=== PATIENT | male | born 1975 | race Caucasian/White ===

== ENCOUNTER 2018-12-26 14:31 | Inpatient (IN) ==
[2018-12-26] MEDS ORDERED: ACETAMINOPHEN 325 MG TABLET PO ONE (14:56)
[2018-12-26] MEDS ORDERED: PIPERACILLIN SODIUM/TAZOBACTAM 3.375 GM in DEXTROSE 5% IN WATER 50 ML IV SCH (15:00)
--- NOTE | 2018-12-26 15:12 | Emergency Department Note ---
Fever HPI <Dheeraj Sanders - Last Filed: 12/26/18 17:06> - General Source: patient Mode of arrival: ambulatory Limitations: no limitations - History of Present Illness MD complaint: fever, malaise, weakness Associated symptoms: Reports: chills, rhinorrhea, cough, diarrhea. Denies: sore throat, stiff neck, chest pain, shortness of breath, abdominal pain, nausea, vomiting, dysuria, rash Treatments prior to arrival fever: acetaminophen <Kendall Villarreal - Last Filed: 12/26/18 19:10> - General Chief Complaint: Fever Stated Complaint: Fever, positive blood cultures Time Seen by Provider: 12/26/18 14:55 - History of Present Illness HPI Narrative: 43-year-old male who comes to the ER today for ongoing fever and worsening condition after being seen in the ER last night for fever and chills after having hemodialysis yesterday afternoon. Patient followed up with his primary care today who referred him back to the emergency room today. During his ER visit yesterday he was found have positive blood cultures 2 with Staph and was started on clindamycin last night. He continues to deteriorate with fever, chills, minor nasal drainage and has now developed a cough that is nonproductive. Denies any recent illness exposures. Denies any chest pain, shortness of breath, vomiting or issues with bowels or bladder. Did have some nausea earlier in the day that was successfully treated with Zofran that allowed him to eat lunch. He also reports poor sleep last night due to condition. Patient also reports a new onset right back shoulder ache that he is never experienced before. Patient is a 7 year hemodialysis patient with a recent procedure of a hemodialysis shunt revision in October 2018. Patient has re ceived flu shot this season and pneumonia shot in the past. He also took 1000 mg of Tylenol at approximately 10 AM this morning for fever. Forgot to take his 1400 dose of APAP. Urine and flu testing yesterday were negative as were chest x-ray. (Kendall Villarreal) - Related Data Home Medications Medication Instructions Recorded Confirmed Folic Acid/Vit Bcomp,C [Renal 0.8 mg PO DAILY 11/26/17 12/26/18 Vitamin Tablet] aspirin 81 mg tablet,delayed 81 mg PO QDAY 08/02/18 12/26/18 release Calcium Acetate [Phoslo] 1,334 mg PO TIDCC 12/26/18 12/26/18 Calcium Acetate [Phoslo] 667 mg PO TIDP PRN 12/26/18 12/26/18 Clopidogrel [Plavix] 75 mg PO DAILY 12/26/18 12/26/18 hydrOXYzine [Atarax] 25 mg PO HS 12/26/18 12/26/18 Previous Rx's Medication Instructions Recorded gemfibrozil 600 mg tablet 600 mg PO QAMAC #30 tab 07/04/18 sucroferric oxyhydroxide 500 mg 1,000 mg PO .six times daily #360 09/30/18 chewable tablet tab Clindamycin HCl [Cleocin] 300 mg PO TID #30 cap 12/25/18 Ondansetron [Zofran ODT] 4 mg SL Q4-6HP PRN #10 tab 12/25/18 sevelamer carbonate 800 mg tablet 1,600 mg PO TID #180 tab 12/25/18 Allergies Allergy/AdvReac Type Severity Reaction Status Date / Time kiwi Allergy Severe Swelling Verified 12/26/18 14:32 of Lip/Tongue/Throat venom-honey bee Allergy Severe Swelling Verified 12/26/18 14:32 [bee venom (honey bee)] of Lip/Tongue/Throat peas Allergy Unknown Swelling Uncoded 12/26/18 13:46 of Lip/Tongue/Throat some tape & bandaids Allergy Unknown Redness of Uncoded 12/26/18 13:46 Skin Review of Systems All systems ED: reviewed and negative except as stated. <Kendall Villarreal - Last Filed: 12/26/18 19:10> Fever PMH - Past Medical History Medical history: Reports: arthritis, GERD, hyperlipidemia, osteoporosis, renal disease, thyroid disease, other (dialysis patient Paraspinal abscess. Interventricular factor positive. Morbid obesity. Gout.) Psychiatric history: Reports: anxiety - Social History smoking status: Former smoker Alcohol use: Reports: None Drug use: Reports: none <Kendall Villarreal - Last Filed: 12/26/18 19:10> - Past Medical History [facility] Narrative: Medical History (Last Reviewed 12/17/17 @ 09:20 by Jocelyn Mata CMA) Bronchitis (Acute) Hypocalcemia (Acute) Hungry bone syndrome (Acute) Abnormal liver enzymes (Chronic) Anemia (Acute) Hyperthyroidism (Acute) Clostridium difficile infection (Acute) Prolonged bleeding time (Acute) Clostridium difficile diarrhea (Chronic) Viral infection (Acute) Right sciatic notch pain (Acute) Pain management (Acute) Arthralgia of right hip (Chronic) Trochanteric bursitis of right hip (Chronic) Paraspinal abscess (Acute) Pleurodynia (Acute) Antinuclear factor positive (Resolved) Lateral epicondylitis of right elbow (Acute) Hyperlipidemia (Chronic) End stage renal failure on dialysis (Chronic) Morbid obesity (Chronic) Arthralgia of both hands (Chronic) Osteoarthritis (Chronic) Heartburn (Chronic) Gout (Chronic) Positive blood cultures (Acute) Gastroenteritis (Inactive) Past Surgical History (Last Reviewed 12/17/17 @ 09:20 by Jocelyn Mata CMA) History of cholecystectomy (Acute) History of parathyroidectomy (Acute) H/O angioplasty (Chronic 04/11/17) Hx of appendectomy (Inactive) (Kendall Villarreal) Physical Exam Limitations: no limitations, other (Sunday hemodialysis patient) General appearance: alert, in no apparent distress, obese, other (appears mildly ill.) Head: atraumatic, normocephalic Eye: Present: normal appearance, PERRL ENT: normal exam, mucous membranes moist, TM's normal bilaterally Neck: Present: full ROM, trachea midline Chest: Present: normal inspection Respiratory: Present: normal lung sounds bilaterally. Absent: rales/crackles, wheezes, stridor, accessory muscle use Cardiovascular: Present: regular rate, normal heart sounds. Absent: JVD Abdominal: Present: soft, normal bowel sounds. Absent: tenderness, guarding, rigidity Extremities: Present: other (left upper extremity examined without any obvious signs of inflammation or infection ) Neurological: Present: alert, oriented X3 Psychiatric: Present: normal affect, normal mood Skin: Present: warm, dry, normal color <Kendall Villarreal - Last Filed: 12/26/18 19:10> Vital Signs Temperature 100.1 F H 12/26/18 14:32 Pulse Rate 88 12/26/18 14:32 Respiratory Rate 17 12/26/18 14:32 Blood Pressure 141/74 12/26/18 14:32 Pulse Oximetry (%) 100 12/26/18 14:32 Temperature 102.5 F H 12/26/18 16:06 Pulse Rate 87 12/26/18 16:47 Respiratory Rate 24 H 12/26/18 16:47 Blood Pressure 99/47 12/26/18 16:46 Pulse Oximetry (%) 98 12/26/18 16:47 Fever - Lab Data Result diagrams: 12/26/18 15:11 12/26/18 15:11 <Dheeraj Sanders - Last Filed: 12/26/18 17:06> - Medical Records Medical records reviewed: Yes I reviewed the patient's medical records. - Lab Data Lab results reviewed: Yes I reviewed the patient's lab results. Result diagrams: 12/26/18 15:11 12/26/18 15:11 - Radiology Data Radiology results reviewed: Yes I reviewed the patient's radiology results. - EKG Data EKG shows normal: sinus rhythm, axis Rate: normal Rhythm: NSR [place]/QRS: normal Ectopy: PAC When compared to previous EKG there are: no significant changes Interpretation: no acute changes, unchanged when compared to prior tracing (date ) <Kendall Villarreal - Last Filed: 12/26/18 19:10> - MDM Narrative Medical decision making narrative: Patient presented with FOUO. Initiated sepsis protocol based on presentation, Initiated Zosyn 3.375 mg IV 1 and administered Tylenol 650 mg by mouth for patient's missed dose at 1400. Lactic acid returned at 2.7 up from 1.4 yesterda y. While blood pressure is stable, normal saline initiated wide open for 1 L. UA, flu and chest x-ray were all negative last evening. Also during monitoring patient's temperature was found to be increasingly elevated at 103 orally. Cooling measures initiated. Secondary antibiotic considered but elect not to as good coverage with Zosyn. Once per calcitonin was back noted be 5.09. CT of abdomen and pelvis ordered for source location. (Kendall Villarreal) - Lab Data Lab results narrative: Review of labs shows an increase of lactic acid from 1.4 yesterday to 2.7 today. Sodium, potassium was normal. Chloride, anion gap, sodium, potassium, creatinine, calcium are within normal for the patient. AST and LT are elevated at 48/47 respectively which is an increase from normal the patient was started on antibiotics yesterday. CBC shows relatively normal for the patient and WBCs are still within normal range at 6.2. (Kendall Villarreal) Lab Results 12/26/18 12/26/18 12/26/18 Range/Units 15:11 15:11 15:11 WBC 6.2 (4.5-11.0) K/mcL RBC 3.71 L (4.50-5.90) M/mcL Hgb 11.9 L (13.5-16.5) g/dL Hct 34.7 L (41.0-55.0) % MCV 93.4 (80.0-100.0) fL MCH 32.0 (26.0-34.0) pg MCHC 34.3 (31.0-36.0) g/dL RDW 13.7 (11.5-14.5) % Plt Count 210 (140-440) K/mcL MPV 7.9 (7.4-10.4) fL Gran % 87.3 H (38.0-78.0) % Lymph % (Auto) 7.8 L (15.5-49.0) % [place] % (Auto) 4.8 (1.0-12.0) % Eos % (Auto) 0 (0.0-7.0) % Baso % (Auto) 0.1 (0.0-2.0) % Gran # 5.4 (1.8-8.0) K/mcL Lymph # (Auto) 0.5 L (1.5-4.8) K/mcL [place] # (Auto) 0.3 (0.1-0.9) K/mcL Eos # (Auto) 0 (0.0-0.7) K/mcL Baso # (Auto) 0 (0.0-0.3) K/mcL VBG Lactic Acid (0.5-2.0) mmol/L Sodium 136 (133-145) mmol/L Potassium 3.6 (3.3-5.1) mmol/L Chloride 90 L (96-108) mmol/L Carbon Dioxide 25 (22-30) mmol/L Anion Gap 21.0 H (8-16) BUN 47 H (6-20) mg/dl Creatinine 7.8 H* (0.7-1.2) mg/dl GFR Calculation 8 Glucose 109 H (70-105) mg/dL Calcium 8.0 L (8.6-10.4) mg/dl Total Bilirubin 0.5 (0.0-1.0) mg/dL AST 47 H (0-37) U/l ALT 48 H (0-40) U/l Alkaline Phosphatase 110 (39-117) U/L Total Protein 8.0 (5.9-8.4) gm/dL Albumin 4.5 (3.2-5.2) gm/dL Globulin 3.5 (2.2-3.7) gm/dL Albumin/Globulin Ratio 1.3 (1.0-2.3) Procalcitonin 5.09 (<0.10) ng/mL 12/26/18 Range/Units 15:11 WBC (4.5-11.0) K/mcL RBC (4.50-5.90) M/mcL Hgb (13.5-16.5) g/dL Hct (41.0-55.0) % MCV (80.0-100.0) fL MCH (26.0-34.0) pg MCHC (31.0-36.0) g/dL RDW (11.5-14.5) % Plt Count (140-440) K/mcL MPV (7.4-10.4) fL Gran % (38.0-78.0) % Lymph % (Auto) (15.5-49.0) % [place] % (Auto) (1.0-12.0) % Eos % (Auto) (0.0-7.0) % Baso % (Auto) (0.0-2.0) % Gran # (1.8-8.0) K/mcL Lymph # (Auto) (1.5-4.8) K/mcL [place] # (Auto) (0.1-0.9) K/mcL Eos # (Auto) (0.0-0.7) K/mcL Baso # (Auto) (0.0-0.3) K/mcL VBG Lactic Acid 2.7 H (0.5-2.0) mmol/L Sodium (133-145) mmol/L Potassium (3.3-5.1) mmol/L Chloride (96-108) mmol/L Carbon Dioxide (22-30) mmol/L Anion Gap (8-16) BUN (6-20) mg/dl Creatinine (0.7-1.2) mg/dl GFR Calculation Glucose (70-105) mg/dL Calcium (8.6-10.4) mg/dl Total Bilirubin (0.0-1.0) mg/dL AST (0-37) U/l ALT (0-40) U/l Alkaline Phosphatase (39-117) U/L Total Protein (5.9-8.4) gm/dL Albumin (3.2-5.2) gm/dL Globulin (2.2-3.7) gm/dL Albumin/Globulin Ratio (1.0-2.3) Procalcitonin (<0.10) ng/mL - Radiology Data Chest x-ray dated 12/25/[address] ABD/Pelvis w/o contrast 12/26/2018: IMPRESSION: Mild hepatosplenomegaly. The spleen has enlarged since 2016. Severe atrophy of both kidneys. There is lobulation of the parenchyma in the midportion of the right kidney and exophytic nodule is developing posteriorly the left kidney. Follow-up renal ultrasound is recommended for further evaluation. (Kendall Villarreal) Disposition <Dheeraj Sanders - Last Filed: 12/26/18 17:06> Pt seen by HOME LENDING OFFICER/PA only: No (Tommy) Time of Disposition: 19:10 <Kendall Villarreal - Last Filed: 12/26/18 19:10> Clinical Impression: Septicemia Disposition: Xfer As Inpt ([facility]) Condition: Fair Referrals: Nelson Castelan MD [Primary Care Provider] -
[2018-12-26] MEDS ORDERED: ONDANSETRON 4 MG/2 ML VIAL IV ONE (15:35)
[2018-12-26 15:55] LABS: Basophils # (Auto) 0 K/mcL (0.0-0.3); Basophils % (Auto) 0.1 % (0.0-2.0); Eosinophils # (Auto) 0 K/mcL (0.0-0.7); Eosinophils % (Auto) 0 % (0.0-7.0); Granulocytes % (Auto) 87.3 % (38.0-78.0); Lymphocytes # (Auto) 0.5 K/mcL (1.5-4.8); Lymphocytes % (Auto) 7.8 % (15.5-49.0); Mean Cell Volume 93.4 fL (80.0-100.0); Mean Corpuscular HGB Conc 34.3 g/dL (31.0-36.0); Monocytes # (Auto) 0.3 K/mcL (0.1-0.9); Monocytes % (Auto) 4.8 % (1.0-12.0); Platelet Count 210 K/mcL (140-440); RBC 3.71 M/mcL (4.50-5.90); Red Cell Distribution Width 13.7 % (11.5-14.5)
[2018-12-26 16:22] LABS: ALT/SGPT 48 U/l (0-40); Albumin 4.5 gm/dL (3.2-5.2); Albumin/Globulin Ratio 1.3 (1.0-2.3); Alkaline Phosphatase 110 U/L (39-117); Blood Urea Nitrogen 47 mg/dl (6-20)
[2018-12-26] MEDS ORDERED: 0.9 % SODIUM CHLORIDE 1,000 ML IV ONE (16:23)
--- NOTE | 2018-12-26 17:07 | Nephrology Consult Note ---
History of Present Illness - Reason for Consult Patient information: Note initiated : 12/26/18 at 5:03 pm Service Date, if different from initiated Date: [] Patient: Odilon Kruger a 43 y/o M admitted on for Fever, positive blood cultures. Chief Complaint: [] Consult date: 12/26/18 end stage renal disease Requesting physician: Dheeraj Sanders - Chief Complaint fever - History of Present Illness Patient is a 43 y/o pleasant white male with PMH of ESRD on HD and other medical issues who presented to the ER with fever Patient states he started feeling sick after dialysis yesterday, was having chills and fever. He presented to the ER and had fever of 101-102F, with negative cxr/ua, blood cultures were sent and patient was discharged on clindamycin. Patient continued to feel sick and saw his PCP this am and was advised to come back to ER. His blood cultures from yesterday are positive for gram positive cocci and his lactate is elevated. he is been treated with iv zosyn and vanc and will be hospitalised he c/o cough no SOB, CP no edema no redness/pain at AVF site no diarrhea, nausea, vomiting denies any pain at any other site no other concerns CT abdomen and pelvis is been done Review of Systems All systems PM: reviewed and no additional remarkable complaints except as stated (as in HPI) Past History Past medical history: ESRD on HD h/o tertiary hyperparathyroidism HTN obesity ALY h/o staph bacteremia x 2 dyslipidemia Past surgical history: s/p AVF x 2 h/o parathyroidectomy h/o cholecystectomy Past family history: not pertinent to this hospital stay Past social history: lives with his and daughter currently does no work has no active addictions Medications and Allergies Home Medications Medication Instructions Recorded Confirmed Type Folic Acid/Vit Bcomp,C [Renal 0.8 mg PO DAILY 11/26/17 12/26/18 History Vitamin Tablet] ranitidine 150 mg tablet 150 mg PO BID tab 05/22/18 12/26/18 History gemfibrozil 600 mg tablet 600 mg PO QAMAC #30 tab 07/04/18 12/26/18 Rx aspirin 81 mg tablet,delayed 81 mg PO QDAY 08/02/18 12/26/18 History release hydroxyzine HCl 25 mg tablet 25 mg PO QHS #90 tab 08/02/18 12/26/18 Rx clopidogrel 75 mg tablet 75 mg PO QDAY #30 tab 08/05/18 12/26/18 Rx sucroferric oxyhydroxide 500 mg 1,000 mg PO .six times daily #360 09/30/18 12/26/18 Rx chewable tablet tab Clindamycin HCl [Cleocin] 300 mg PO TID #30 cap 12/25/18 12/26/18 Rx Ondansetron [Zofran ODT] 4 mg SL Q4-6HP PRN #10 tab 12/25/18 12/26/18 Rx calcium acetate 667 mg tablet See Rx Instructions .ROUTE 12/25/18 12/26/18 Rx .COMPLEX #240 tab sevelamer carbonate 800 mg tablet 1,600 mg PO TID #180 tab 12/25/18 12/26/18 Rx Allergies Allergy/AdvReac Type Severity Reaction Status Date / Time kiwi Allergy Severe Swelling Verified 12/26/18 14:32 of Lip/Tongue/Throat venom-honey bee Allergy Severe Swelling Verified 12/26/18 14:32 [bee venom (honey bee)] of Lip/Tongue/Throat peas Allergy Unknown Swelling Uncoded 12/26/18 13:46 of Lip/Tongue/Throat some tape & bandaids Allergy Unknown Redness of Uncoded 12/26/18 13:46 Skin Exam - Vital Signs Vital signs: Temp Pulse Resp BP Pulse Ox 102.5 F H 96 H 15 122/72 98 12/26/18 16:06 12/26/18 16:08 12/26/18 16:08 12/26/18 16:08 12/26/18 16:08 - General Appearance General appearance: appears started age, obese EENT: mucous membranes moist Neck: no JVD Respiratory: clear Cardiology: no rub, no edema, normal S1, normal S2 Gastrointestinal: no tenderness, no guarding Integumentary: warm and dry Musculoskeletal: no erythema, no cyanosis Psychiatric: mood/affect appropriate Results - Lab Results 12/26/18 15:11 12/26/18 15:11 Most recent lab results Calcium 8.0 mg/dl (8.6-10.4) L 12/26/18 15:11 Assessment and Plan (1) Bacteremia Status: Acute (2) ESRD (end stage renal disease) on dialysis Status: Acute - Narrative A/P Narrative: patient been treated with vacn and zosyn unclear source will obtain AVF US consider ID consult ESRD on HD, dialyses MWF dialysis tomorrow I will sign off to Dr Bennett who will be weatherization technician for nephrology from tomorrow
--- NOTE | 2018-12-26 17:08 | Emergency Department Note ---
ED Note Addendum Note Addendum: Patient seen by nurse practitioner Stephan. Agree with assessment and evaluation in the emergency department. At this point he is being reevaluated by Dr. Morgan in the department and final disposition is still pending at this time. Plan is hospital admission here versus transfer. antibiotics started in the department.
[2018-12-26] MEDS ORDERED: VANCOMYCIN 1,500 MG in 0.9 % SODIUM CHLORIDE 500 ML IV ONE (17:09)
--- NOTE | 2018-12-26 17:23 | Cat Scan Report ---
CLINICAL INFORMATION: Fever of unknown origin with positive blood cultures COMPARISON: 04/07/16 TECHNIQUE: The abdomen was imaged without oral or IV contrast, scanning from the diaphragm to the symphysis pubis. Sagittal and coronal reformats were created. The radiation exposure was limited using dose reduction technology. FINDINGS: There is linear bands of scar tissue and inferior segment lingula and posterior laterally in the right lower lobe. These are chronic stable finding. Lung bases are otherwise clear and there is no pleural effusion. The liver and spleen are mildly enlarged. The spleen has increased in size couple centimeters since 2016 but the liver has remained stable. There is mild fatty infiltration of liver. The gallbladder has been removed since prior exam. There are clips in the gallbladder fossa and the bile ducts are nondilated. There is no apparent mass or inflammation the pancreas. There is mild hyperplasia left adrenal gland. This is chronic. The right adrenal is normal. There is severe atrophy of both kidneys. There is a bulbous contour of the cortex laterally in the middle third of the right kidney. This more likely due to asymmetric loss of the renal parenchyma rather than a renal neoplasm. Patient has developed a 1 cm exophytic low-attenuation nodule posteriorly in the upper half of left kidney. This is new. No kidney stone or hydronephrosis are present. There few calcified plaques in the main renal arteries. The aorta is normal in caliber and there is no significant plaque formation. The bowel pattern is normal. Prostate, bladder and seminal vesicles appear normal. Patient has no ascites or adenopathy in the abdomen or pelvis. There is no intra-abdominal abscess and no acute inflammatory process is identified. IMPRESSION: Mild hepatosplenomegaly. The spleen has enlarged since 2016. Severe atrophy of both kidneys. There is lobulation of the parenchyma in the midportion of the right kidney and exophytic nodule is developing posteriorly the left kidney. Follow-up renal ultrasound is recommended for further evaluation. Kendall Villarreal was called with the results Interpreted and Authenticated by: Christopher Hadley 12/26/18
--- NOTE | 2018-12-26 17:31 | Internal Med History&Physical ---
Medical - H&P: HPI Patient information: Note initiated : 12/26/18 at 5:30 pm Service Date, if different from initiated Date: [] Patient: Odilon Kruger a 43 y/o M admitted on for Fever, positive blood cultures. Chief Complaint: [] Chief complaint: fever History of present illness: Mr. Kruger is a 43 year old M with a history of ESRD on hemodialysis who presented to the ER the day before with fever during hemodialysis. Blood cultures were drawn and patient was discharged on clindamycin for presumed staph infection. He however did not have any particular area of inflammation or cellulitis changes. He was evaluated the following day at primary care physician's office and because of persistent fever, malaise he was referred back to the ER. Blood cultures from previous ER visit came back positive for gram- positive cocci. Initial workup was consistent with Sepsis from gram-positive bacteremia with elevated lactate, fever of 102. Nephrology was consulted. Patient was started on empiric antibiotic. Initial pro-calcitonin 5.09. Ultrasound fistula was performed to rule out fistula thrombosis/abscess. Negative UA/chest imaging/abdominal pelvis CT. No clear source was identified. Subsequently hospitalist service was consulted for admission and management of above. At the time of admission patient is alert oriented. He denies joint pain arthralgia and neck pain photophobia and headache or rash. He further denies hematuria flank pain, diarrhea Review of systems A 10 point review of systems was performed and is negative except as discussed above Medical - H&P: PMH Medical history: ESRD on HD h/o tertiary hyperparathyroidism HTN obesity ALY h/o staph bacteremia x 2 dyslipidemia Past surgical history: s/p AVF x 2 h/o parathyroidectomy h/o cholecystectomy Past family history: None significant Past social history: lives with his and daughter currently does no work has no active addictions Medical - H&P: Meds Home Medications Medication Instructions Recorded Confirmed Type Folic Acid/Vit Bcomp,C [Renal 0.8 mg PO DAILY 11/26/17 12/26/18 History Vitamin Tablet] gemfibrozil 600 mg tablet 600 mg PO QAMAC #30 tab 07/04/18 12/26/18 Rx aspirin 81 mg tablet,delayed 81 mg PO QDAY 08/02/18 12/26/18 History release sucroferric oxyhydroxide 500 mg 1,000 mg PO .six times daily #360 09/30/18 12/26/18 Rx chewable tablet tab Clindamycin HCl [Cleocin] 300 mg PO TID #30 cap 12/25/18 12/26/18 Rx Ondansetron [Zofran ODT] 4 mg SL Q4-6HP PRN #10 tab 12/25/18 12/26/18 Rx sevelamer carbonate 800 mg tablet 1,600 mg PO TID #180 tab 12/25/18 12/26/18 Rx Calcium Acetate [Phoslo] 1,334 mg PO TIDCC 12/26/18 12/26/18 History Calcium Acetate [Phoslo] 667 mg PO TIDP PRN 12/26/18 12/26/18 History Clopidogrel [Plavix] 75 mg PO DAILY 12/26/18 12/26/18 History hydrOXYzine [Atarax] 25 mg PO HS 12/26/18 12/26/18 History Allergies Allergy/AdvReac Type Severity Reaction Status Date / Time kiwi Allergy Severe Swelling Verified 12/26/18 14:32 of Lip/Tongue/Throat venom-honey bee Allergy Severe Swelling Verified 12/26/18 14:32 [bee venom (honey bee)] of Lip/Tongue/Throat peas Allergy Unknown Swelling Uncoded 12/26/18 13:46 of Lip/Tongue/Throat some tape & bandaids Allergy Unknown Redness of Uncoded 12/26/18 13:46 Skin Medical - H&P: Exam - Constitutional Vitals: Temp Pulse Resp BP Pulse Ox 102.5 F H 87 24 H 99/47 98 12/26/18 16:06 12/26/18 16:47 12/26/18 16:47 12/26/18 16:46 12/26/18 16:47 General appearance: moderate distress (anxious), morbidly obese Exam: Overweight, alert and oriented and slightly anxious Nonlabored breathing Oral cavity dry Head normocephalic Neck no lymphadenopathy S1 and S2 regular rhythm Chest clear to auscultation Abdomen soft Left forearm AV fistula No joint swelling or erythema No lymphedema Skin no suspicious lesion Psych appears anxious but cooperative Neuro nonfocal Medical - H&P: Reslt - Labs CBC & Chem 7: 12/27/18 03:34 12/27/18 03:34 Labs: Short CBC 12/26/18 Range/Units 15:11 WBC 6.2 (4.5-11.0) K/mcL Hgb 11.9 L (13.5-16.5) g/dL Hct 34.7 L (41.0-55.0) % Plt Count 210 (140-440) K/mcL BMP 12/26/18 15:11 Sodium 136 Potassium 3.6 Chloride 90 L Carbon Dioxide 25 BUN 47 H Creatinine 7.8 H* Glucose 109 H Calcium 8.0 L Liver Function 12/26/18 Range/Units 15:11 Total Bilirubin 0.5 (0.0-1.0) mg/dL AST 47 H (0-37) U/l ALT 48 H (0-40) U/l Alkaline Phosphatase 110 (39-117) U/L Albumin 4.5 (3.2-5.2) gm/dL Medical - H&P: A/P (1) Bacteremia Current visit: Yes Status: Acute * Gram-positive bacteremia- unclear source. Broad antibiotic coverage with daily surveillance cultures. Transesophageal echocardiogram if transthoracic negative. Negative ultrasound fistula/abdomen pelvis/chest x-ray for acute process. * Sepsis secondary to above continue management per guidelines * ESRD on hemodialysis continue as per nephrology * History of CAD on aspirin and Plavix * Hyperlipidemia on gemfibrozil * Full code * Prophylaxis heparin Plan * Broad antibiotic coverage * Dialysis per nephrology * Transthoracic echo * Continue source evaluation * Inpatient admission
--- NOTE | 2018-12-26 18:50 | Ultrasound Report ---
History: Bacteremia, fever, renal dialysis fistula which had been recently revised FINDINGS: The patient's [place] left cephalic vein is thrombosed and atrophic. There is an arteriovenous graft in the forearm which connects the brachial artery with the cephalic graft. At the proximal end of the anastomosis there appears to be a stent within the lumen. There is good blood flow. Normal flow velocities are present within the "fistula". There is no evidence of restenosis. In the mid forearm, adjacent to the midportion of the fistula there is a 1.2 x 0.4 cm hypoechoic avascular structure. This may be a small hematoma. There is a second hypoechoic area in the distal forearm, near the junction of the fistula and the cephalic graft which measures 0.5 x 1.3 cm. This may be a second small hematoma. The cephalic graft is patent and has normal flow velocities. No abscess is seen within the forearm or upper arm. Above the graft and forearm, the axillary and brachial arteries are normal in caliber and have normal flow velocities. The axillary vein is normal. IMPRESSION: Patent, nonstenotic arteriovenous fistula / graft in the left forearm. Two small hypoechoic avascular structures adjacent to the fistula within the forearm. These are more likely small hematomas from needle punctures rather than infection. Interpreted and Authenticated by: Christopher Hadley 12/26/18
[2018-12-26] MEDS ORDERED: ACETAMINOPHEN 1,000 MG/100 ML BOTTLE IV PRN (19:24)
[2018-12-26] MEDS ORDERED: VANCOMYCIN PER PHARMACY IV SCH (19:24)
[2018-12-26] MEDS ORDERED: ACETAMINOPHEN 325 MG TABLET PO PRN (19:24)
[2018-12-26] MEDS: ONDANSETRON 4 MG/2 ML VIAL IV PRN (20:06)
[2018-12-26] MEDS: DOCUSATE SODIUM 100 MG CAPSULE PO SCH (21:05)
[2018-12-26] MEDS: SENNOSIDES/DOCUSATE SODIUM 1 TAB TABLET PO SCH (21:15)
[2018-12-26] MEDS: HEPARIN 5,000 UNIT/ML VIAL SQ SCH (21:19)
[2018-12-26] MEDS: SEVELAMER 800 MG TABLET PO SCH (21:19)
[2018-12-26] MEDS: hydrOXYzine 25 MG TABLET PO SCH (21:19)
[2018-12-26] MEDS: 0.9 % SODIUM CHLORIDE 10 ML SYRINGE IV SCH (21:19)
[2018-12-26] MEDS ORDERED: LOPERAMIDE 2 MG CAPSULE PO ONE (22:03)
[2018-12-26] MEDS: PIPERACILLIN SODIUM/TAZOBACTAM 2.25 GM in DEXTROSE 5% IN WATER 50 ML IV SCH (22:32)
[2018-12-27] MEDS ORDERED: LOPERAMIDE 2 MG CAPSULE PO ONE (03:22)
[2018-12-27] MEDS: ONDANSETRON 4 MG/2 ML VIAL IV PRN (04:53)
[2018-12-27] MEDS: PIPERACILLIN SODIUM/TAZOBACTAM 2.25 GM in DEXTROSE 5% IN WATER 50 ML IV SCH ×3 (05:32→22:08)
[2018-12-27] MEDS: 0.9 % SODIUM CHLORIDE 10 ML SYRINGE IV SCH ×4 (05:32→22:08)
--- NOTE | 2018-12-27 06:46 | Nephrology Progress Note ---
Subjective Patient information: Note initiated : 12/27/18 at 6:41 am Patient: Odilon Kruger 43 y/o M admitted on 12/26/18 for Fever, positive blood cultures. Chief Complaint: Fever Principal diagnosis: ESRD on HD; bacteremia Pertinent ROS: Weakness No shortness of breath No chest pain No abdominal pain No edema Objective - Vital Signs Vital signs: Vital Signs Temp Pulse Pulse Resp BP BP Pulse Ox 12/27/18 03:54 99.8 F H 81 18 100/41 100 12/27/18 00:00 98.8 F 78 22 106/64 99 12/26/18 20:51 102.0 F H 12/26/18 20:06 102.5 F H 12/26/18 19:30 102.2 F H 88 24 H 129/43 95 12/26/18 19:20 102.5 F H 86 20 99/47 100 12/26/18 16:47 87 24 H 98 12/26/18 16:46 90 33 H 99/47 95 12/26/18 16:31 88 99/47 99 12/26/18 16:16 94 H 25 H 92/41 97 12/26/18 16:08 96 H 15 122/72 98 12/26/18 16:06 102.5 F H 12/26/18 15:21 101.2 F H 12/26/18 14:32 100.1 F H 88 17 141/74 100 Intake and Output 12/26/18 12/27/18 12/27/18 21:59 05:59 13:59 Intake Total 1439 510 Balance 1439 510 Intake: IV 1439 50 Sodium Chloride 0.9% 1,000 ml @ 1000 Wide Open IV [facility] Rx#: [id number] Zosyn 2.25 gm In Dextrose 5% in 50 Water 50 ml @ 100 mls/hr IV Q8H [facility] Rx#:[id number] Zosyn 3.375 gm In Dextrose 5% 50 in Water 50 ml @ 100 mls/hr IV ONCE [facility] Rx#:[id number] Vancomycin 1,500 mg In Sodium 389 Chloride 0.9% 500 ml @ 333.3 mls/hr IV ONCE ONE Rx#: [id number] Oral 0 460 Other: Stool Size Moderate Stool Color Brown Stool Consistency Liquid # Bowel Movements 1 Weight 295 lb 8 oz Intake & Output: Intake & Output 12/26/18 12/27/18 12/27/18 21:59 05:59 13:59 Intake Total 1439 510 Balance 1439 510 Weight 295 lb 8 oz Intake: IV 1439 50 Sodium Chloride 0.9% 1,000 ml @ 1000 Wide Open IV [facility] Rx#: [id number] Zosyn 2.25 gm In Dextrose 5% in 50 Water 50 ml @ 100 mls/hr IV Q8H [facility] Rx#:[id number] Zosyn 3.375 gm In Dextrose 5% 50 in Water 50 ml @ 100 mls/hr IV ONCE [facility] Rx#:[id number] Vancomycin 1,500 mg In Sodium 389 Chloride 0.9% 500 ml @ 333.3 mls/hr IV ONCE ONE Rx#: [id number] Oral 0 460 Other: Stool Size Moderate Stool Color Brown Stool Consistency Liquid # Bowel Movements 1 - General Appearance General appearance: fatigue EENT: mucous membranes moist Neck: supple Respiratory: clear Cardiology: edema Gastrointestinal: no tenderness Integumentary: warm and dry Neurologic: no focal deficit, alert and oriented x3 Musculoskeletal: no deformities Psychiatric: mood/affect appropriate, cooperative - Lab 12/27/18 03:34 12/27/18 03:34 Most recent lab results Calcium 8.0 mg/dl (8.6-10.4) L 12/26/18 15:11 Assessment and Plan (1) ESRD (end stage renal disease) on dialysis Odilon Kruger is a 43-year-old male with end-stage renal disease on chronic hemodialysis (through right arm AV fistula/graft, at [facility], on MWF, followed by Dr. Morgan), secondary hyperparathyroidism of renal origin, chronic anemia due to kidney disease, admitted on 12/27/18 for gram positive cocci bacteremia. End-stage renal disease. Metabolic acidosis. Work up: US AV Fistula/Graft on 12/26/18: Patent, nonstenotic arteriovenous fistula / graft in the left forearm. Two small hypoechoic avascular structures adjacent to the fistula within the forearm. These are more likely small hematomas from nee dle punctures rather than infection. Plan: Hemodialysis today with Revaclear 400 dialyzer for 4 hours, QB/QD 400/800, dialysate (Potassium 3, Bicarbonate 33, Calcium 2.5, Sodium 140), UF target 2000 ml, Heparin 2000 unit bolus, 500 unit per hour. The patient seen and evaluated during hemodialysis at 09:10. Status: Acute Priority: Medium
[2018-12-27 06:48] LABS: Mean Cell Volume 94.3 fL (80.0-100.0); Mean Corpuscular HGB Conc 33.8 g/dL (31.0-36.0); Platelet Count 178 K/mcL (140-440); RBC 3.33 M/mcL (4.50-5.90); Red Cell Distribution Width 13.8 % (11.5-14.5)
[2018-12-27 07:27] LABS: ALT/SGPT 109 U/l (0-40); Albumin 3.8 gm/dL (3.2-5.2); Albumin/Globulin Ratio 1.3 (1.0-2.3); Alkaline Phosphatase 88 U/L (39-117); Bilirubin,Direct < 0.2 mg/dL (0.0-0.3); Blood Urea Nitrogen 56 mg/dl (6-20); Gamma Glutamyl Transpeptidase 11 U/L (8-61); Uric Acid 7.6 mg/dL (2.5-8.0)
[2018-12-27] MEDS: SEVELAMER 800 MG TABLET PO SCH ×4 (07:54→19:07)
[2018-12-27] MEDS: GEMFIBROZIL 600 MG TABLET PO SCH (07:55)
[2018-12-27 08:03] LABS: Band Neutrophils % 1 % (0-10); Lymphocytes % 21 % (15-49); Monocytes % (Manual) 3 % (1-12); Platelet Estimate NORMAL (NORMAL); RBC Morphology NORMAL (NORMAL); Segmented Neutrophils % 75 % (38-78)
[2018-12-27] MEDS: DOCUSATE SODIUM 100 MG CAPSULE PO SCH ×2 (09:10→20:19)
[2018-12-27] MEDS: ASPIRIN 81 MG TAB.CHEW PO SCH (09:22)
[2018-12-27] MEDS: HEPARIN 5,000 UNIT/ML VIAL SQ SCH ×2 (09:22→20:31)
[2018-12-27] MEDS: CLOPIDOGREL 75 MG TABLET PO SCH (09:22)
[2018-12-27] MEDS: LOPERAMIDE 2 MG CAPSULE PO PRN ×2 (13:20→20:28)
[2018-12-27 13:39] LABS: Vancomycin,Random 8.6 ug/mL
[2018-12-27] MEDS: SUCROFERRIC OXYHYDROXIDE 500 MG PO SCH ×2 (13:49→16:10)
[2018-12-27] MEDS ORDERED: VANCOMYCIN 1,000 MG in 0.9 % SODIUM CHLORIDE 250 ML IV ONE (14:45)
--- NOTE | 2018-12-27 15:23 | Internal Med Progress Note ---
Medical - PN: Subj Patient information: Note initiated : 12/27/18 at 3:21 pm Service Date, if different from initiated Date: [] Patient: Odilon Kruger a 43 y/o M admitted on 12/26/18 for Fever, positive blood cultures. Chief Complaint: [] Interval history: Mr. Kruger is a 43 year old M with a history of ESRD on hemodialysis who presented to the ER the day before with fever during hemodialysis. Blood cultures were drawn and patient was discharged on clindamycin for presumed staph infection. He however did not have any particular area of inflammation or cellulitis changes. He was evaluated the following day at primary care physician's office and because of persistent fever, malaise he was referred back to the ER. Blood cultures from previous ER visit came back positive for gram- positive cocci. Initial workup was consistent with Sepsis from gram-positive bacteremia with elevated lactate, fever of 102. Nephrology was consulted. Patient was started on empiric antibiotic. Initial pro-calcitonin 5.09. Ultrasound fistula was performed to rule out fistula thrombosis/abscess. Negative UA/chest imagin g/abdominal pelvis CT. No clear source was identified. Subsequently hospitalist service was consulted for admission and management of above. At the time of admission patient is alert oriented. He denies joint pain arthralgia and neck pain photophobia and headache or rash. He further denies hematuria flank pain, diarrhea 12/27-patient doing better. Fever defervesced this morning. However persistent bacteremia with additional 2 sets positive for gram-positive cocci. Transthoracic echo pending. Ongoing hemodialysis per nephrology. No source identified as yet. Denies arthralgia myalgia back pain. - Constitutional Vitals: Vital Signs Temp Pulse Resp BP Pulse Ox 98.8 F 69 16 119/54 96 12/27/18 12:45 12/27/18 12:45 12/27/18 12:00 12/27/18 12:45 12/27/18 12:00 Period Temp Pulse Resp BP Sys/Cancino Pulse Ox Last 24 Hr 98.8 F-102.5 F 69-96 15-33 92-129/41-72 95-100 Intake and Output 12/27/18 12/27/18 12/27/18 05:59 13:59 21:59 Intake Total 510 450 Output Total 2000 Balance 510 -1550 Weight 295 lb 8 oz Patient Weight 12/28/18 05:59 Weight 295 lb 8 oz Intake & Output: Intake & Output 12/27/18 12/27/18 12/27/18 05:59 13:59 21:59 Intake Total 510 450 Output Total 1999 Balance 510 -1550 Weight 295 lb 8 oz Intake: IV 50 50 Zosyn 2.25 gm In Dextrose 5% in 50 50 Water 50 ml @ 100 mls/hr IV Q8H [facility] Rx#:[id number] Oral 460 400 Output: Hemodialysis UF 1999 Other: Meal Breakfast Percent of Meal Consumed 100% Feeding Ability Independent Stool Size Moderate Stool Color Brown Stool Consistency Liquid # Bowel Movements 1 General appearance: morbidly obese, no acute distress Exam: Alert oriented Nonlabored breathing Nondistended abdomen No anxiety Medical - PN: Obj Da - Labs CBC & Chem 7: 12/27/18 03:34 12/27/18 03:34 Labs: Abnormal Lab Results 12/27/18 12/27/18 12/26/18 03:34 03:34 15:11 RBC 3.33 L Hgb 10.6 L Hct 31.4 L Gran % Lymph % (Auto) Lymph # (Auto) VBG Lactic Acid 2.7 H Chloride 94 L Carbon Dioxide 21 L Anion Gap 23.0 H BUN 56 H Creatinine 9.1 H* Glucose Calcium 7.4 L Phosphorus 5.8 H AST 120 H ALT 109 H Lactate Dehydrogenase 418 H Triglycerides 259 H 12/26/18 12/26/18 15:11 15:11 RBC 3.71 L Hgb 11.9 L Hct 34.7 L Gran % 87.3 H Lymph % (Auto) 7.8 L Lymph # (Auto) 0.5 L VBG Lactic Acid Chloride 90 L Carbon Dioxide Anion Gap 21.0 H BUN 47 H Creatinine 7.8 H* Glucose 109 H Calcium 8.0 L Phosphorus AST 47 H ALT 48 H Lactate Dehydrogenase Triglycerides Meds: Medications Acetaminophen (Tylenol) 650 mg PO Q4-6HP PRN PRN Reason: PAIN/FEVER > 101 Aspirin (Aspirin) 81 mg PO DAILY [facility] Last Admin: 12/27/18 09:22 Dose: 81 mg Documented by: Clopidogrel Bisulfate (Plavix) 75 mg PO QDAY [facility] Last Admin: 12/27/18 09:22 Dose: 75 mg Documented by: Docusate Sodium (Colace) 100 mg PO BID [facility] Last Admin: 12/27/18 09:10 Dose: Not Given Documented by: Gemfibrozil (Lopid) 600 mg PO QAMAC [facility] Last Admin: 12/27/18 07:55 Dose: 600 mg Documented by: Heparin Sodium (Porcine) (Heparin) 5,000 unit SQ Q12 [facility] Last Admin: 12/27/18 09:22 Dose: 5,000 unit Documented by: Hydroxyzine HCl (Atarax) 25 mg PO HS [facility] Last Admin: 12/26/18 21:19 Dose: 25 mg Documented by: Acetaminophen (Ofirmev) 1,000 mg in 100 mls @ 200 mls/hr IV Q6HP PRN PRN Reason: PAIN/FEVER > 101 Last Infusion: 12/26/18 20:36 Dose: Infused Documented by: Piperacillin Sod/Tazobactam (Sod 2.25 gm/ Dextrose) 50 mls @ 100 mls/hr IV Q8H [facility]; Protocol Last Admin: 12/27/18 13:22 Dose: 100 mls/hr Documented by: Vancomycin HCl 1,000 mg/ (Sodium Chloride) 250 mls @ 250 mls/hr IV ONCE ONE Stop: 12/27/18 15:44 Loperamide HCl (Imodium) 2 mg PO PRN PRN PRN Reason: Diarrhea Last Admin: 12/27/18 13:20 Dose: 2 mg Documented by: Ondansetron HCl (Zofran) 4 mg IV Q4-6HP PRN PRN Reason: Nausea And Vomiting Last Admin: 12/27/18 04:53 Dose: 4 mg Documented by: Sucroferric Oxyhydroxide ( Velphoro) 500 Mg Tablet 1 dose PO .six times daily [facility] Last Admin: 12/27/18 13:49 Dose: 1 dose Documented by: Senna/Docusate Sodium (Senna Plus Tablet) 1 tab PO [facility] Last Admin: 12/26/18 21:15 Dose: Not Given Documented by: Sevelamer Carbonate (Renvela) 1,600 mg PO TID [facility] Last Admin: 12/27/18 13:20 Dose: 1,600 mg Documented by: Sodium Chloride (Saline Flush) 10 ml IV Q8 [facility] Last Admin: 12/27/18 13:22 Dose: 10 ml Documented by: Vancomycin HCl (Vancomycin Per Pharmacy) 1 order IV UD [facility]; Protocol Medical - PN: A/P - Time Spent With Patient Total time spent is greater than 50% in coordination of care (as documented) at patient's floor/unit and/or counseling patient: 25 - 35 minutes (1) Bacteremia Status: Acute Assessment and plan: * Gram-positive bacteremia-repeat blood cultures positive. Continue surveillance cultures. Continue antibiotics. Transesophageal echocardiogram if transthoracic negative. Negative ultrasound fistula/abdomen pelvis/chest x -ray for acute process. * Sepsis secondary to above continue management per guidelines * ESRD on hemodialysis continue as per nephrology * History of CAD on aspirin and Plavix * Hyperlipidemia on gemfibrozil * Full code * Prophylaxis heparin Plan * Continue antibiotic coverage * Dialysis per nephrology * Await echocardiogram * Continue source evaluation * ID consult Current Visit: Yes Medical - PN: Qual - VTE Deep Vein Thrombosis/Pulmonary Embolism Present on Admission: No
[2018-12-27] MEDS: SENNOSIDES/DOCUSATE SODIUM 1 TAB TABLET PO SCH (20:19)
[2018-12-27] MEDS: hydrOXYzine 25 MG TABLET PO SCH (20:31)
[2018-12-27] MEDS ORDERED: ceFAZolin 3 GM in DEXTROSE 5% IN WATER 50 ML IV ONE (22:22)
[2018-12-27] MEDS ORDERED: ceFAZolin 1 GM VIAL ONE (22:55)
[2018-12-28 04:54] LABS: Mean Cell Volume 92.7 fL (80.0-100.0); Mean Corpuscular HGB Conc 34.8 g/dL (31.0-36.0); Platelet Count 154 K/mcL (140-440); RBC 3.15 M/mcL (4.50-5.90); Red Cell Distribution Width 14.1 % (11.5-14.5)
[2018-12-28 05:21] LABS: ALT/SGPT 192 U/l (0-40); Albumin 3.5 gm/dL (3.2-5.2); Albumin/Globulin Ratio 1.2 (1.0-2.3); Alkaline Phosphatase 75 U/L (39-117); Bilirubin,Direct < 0.2 mg/dL (0.0-0.3); Blood Urea Nitrogen 37 mg/dl (6-20); Gamma Glutamyl Transpeptidase 12 U/L (8-61); Uric Acid 4.6 mg/dL (2.5-8.0)
[2018-12-28] MEDS: 0.9 % SODIUM CHLORIDE 10 ML SYRINGE IV SCH (05:29)
[2018-12-28 06:28] LABS: Band Neutrophils % 3 % (0-10); Eosinophils % (Manual) 2 % (0-7); Lymphocytes % 27 % (15-49); Monocytes % (Manual) 9 % (1-12); Platelet Estimate NORMAL (NORMAL); RBC Morphology NORMAL (NORMAL); Segmented Neutrophils % 59 % (38-78)
--- NOTE | 2018-12-28 07:55 | Nephrology Progress Note ---
Subjective Patient information: Note initiated : 12/28/18 at 7:53 am Patient: Odilon Kruger 43 y/o M admitted on 12/26/18 for Fever, positive blood cultures. Chief Complaint: Fever Principal diagnosis: ESRD on HD; bacteremia Pertinent ROS: Weakness No shortness of breath No chest pain No abdominal pain No edema Objective - Vital Signs Vital signs: Vital Signs Temp Pulse Pulse Resp BP BP Pulse Ox 12/28/18 07:24 99.0 F 74 20 108/55 97 12/28/18 04:00 98.1 F 82 18 94 12/28/18 00:00 97.8 F 78 18 95 12/27/18 20:00 98.9 F 94 H 18 122/78 95 12/27/18 17:10 101.2 F H 12/27/18 15:30 100.9 F H 78 16 118/59 96 12/27/18 12:45 98.8 F 69 119/54 12/27/18 12:12 80 112/43 12/27/18 12:00 16 96 12/27/18 11:44 80 116/58 12/27/18 11:14 80 116/53 12/27/18 10:48 80 114/50 12/27/18 10:13 69 113/45 12/27/18 09:42 80 108/50 12/27/18 09:12 80 107/42 12/27/18 08:40 99.1 F H 80 117/53 12/27/18 08:00 99.9 F H 82 18 116/57 97 Intake and Output 12/27/18 12/28/18 12/28/18 21:59 05:59 13:59 Intake Total 490 50 Balance 490 50 Intake: IV 250 50 Zosyn 2.25 gm In Dextrose 5% in 50 Water 50 ml @ 100 mls/hr IV Q8H [facility] Rx#:[id number] Oral 240 Other: Meal Dinner Percent of Meal Consumed 75% # Voids 1 1 # Bowel Movements 1 2 Weight 293 lb 8 oz Intake & Output: Intake & Output 12/27/18 12/28/18 12/28/18 21:59 05:59 13:59 Intake Total 490 50 Balance 490 50 Weight 293 lb 8 oz Intake: IV 250 50 Zosyn 2.25 gm In Dextrose 5% in 50 Water 50 ml @ 100 mls/hr IV Q8H [facility] Rx#:[id number] Oral 240 Other: Meal Dinner Percent of Meal Consumed 75% # Voids 1 1 # Bowel Movements 1 2 - General Appearance General appearance: fatigue EENT: mucous membranes moist Neck: supple Respiratory: clear Cardiology: no edema Gastrointestinal: no tenderness Integumentary: warm and dry Neurologic: no focal deficit, alert and oriented x3 - Lab 12/28/18 03:16 12/28/18 03:16 Most recent lab results Calcium 7.7 mg/dl (8.6-10.4) L 12/28/18 03:16 Phosphorus 5.7 mg/dL (2.7-4.5) H 12/28/18 03:16 Magnesium 2.1 mg/dL (1.6-2.5) 12/28/18 03:16 Assessment and Plan (1) ESRD (end stage renal disease) on dialysis Odilon Kruger is a 43-year-old male with end-stage renal disease on chronic hemodialysis (through left arm AV fistula/graft, at [facility], on MWF, followed by Dr. Morgan), secondary hyperparathyroidism of renal origin, chronic anemia due to kidney disease, admitted on 12/27/18 for gram positive cocci bacteremia. End-stage renal disease. Work up: Blood cultures on 12/25/18 and 12/26/18: Staphylococcus aureus. CT Abdomen and Pelvis on 12/26/18: Mild hepatosplenomegaly. The spleen has enlarged since 2016. Severe atrophy of both kidneys. There is lobulation of the parenchyma in the midportion of the right kidney and exophytic nodule is developing posteriorly the left kidney. Follow-up renal ultrasound is recommended for further evaluation. US AV Fistula/Graft on 12/26/18: Patent, nonstenotic arteriovenous fistula / graft in the left forearm. Two small hypoechoic avascular structures adjacent to the fistula within the forearm. These are more likely small hematomas from needle punctures rather than infection. Echo on 12/26/18: No vegetation. Plan: Hemodialysis on Sunday, Sunday with Revaclear 400 dialyzer for 4 hours, QB/QD 400/800, dialysate (Potassium 3, Bicarbonate 33, Calcium 2.5, Sodium 140), UF target 2000 ml, Heparin 2000 unit bolus, 500 unit per hour. The patient has an AV graft as extension of left arm AV fistula which is potentially infected. He may need to be transferred to [facility] for further management by his vascular surgeon Dr. Duran. Status: Acute Priority: Medium
[2018-12-28] MEDS: GEMFIBROZIL 600 MG TABLET PO SCH (08:43)
[2018-12-28] MEDS: DOCUSATE SODIUM 100 MG CAPSULE PO SCH (08:43)
[2018-12-28] MEDS: CLOPIDOGREL 75 MG TABLET PO SCH (08:46)
[2018-12-28] MEDS: ASPIRIN 81 MG TAB.CHEW PO SCH (08:46)
[2018-12-28] MEDS: HEPARIN 5,000 UNIT/ML VIAL SQ SCH (08:46)
[2018-12-28] MEDS: LOPERAMIDE 2 MG CAPSULE PO PRN (09:04)
[2018-12-28] MEDS: SEVELAMER 800 MG TABLET PO SCH ×2 (09:57→12:33)
[2018-12-28] MEDS: SUCROFERRIC OXYHYDROXIDE 500 MG PO SCH ×2 (09:57→12:33)
--- NOTE | 2018-12-28 10:11 | Transfer Summary ---
Transfer Discharge Sum: Prov Patient information: Note initiated : 12/28/18 at 10:04 am Service Date, if different from initiated Date: [] Patient: Odilon Kruger 43 y/o M admitted on 12/26/18 for Fever, positive blood cultures. Chief Complaint: [] Date of admission: 12/26/18 19:20 Discharge Date: 12/28/18 Primary care physician: Nelson Castelan Consults: 12/26/18 Consult to Physician [CONS] Stat Comment: Consulting Provider: Ministerio Luong Reason For Exam: Physician to Consult 12/26/18 16:49 Consult to Physician [CONS] Stat Comment: Consulting Provider: Debra Morgan Reason For Exam: Physician to Consult 12/27/18 15:26 Consult to Physician [CONS] Routine Comment: Consulting Provider: Krishna Gary Reason For Exam: Physician to Consult Transfer Discharge Sum: Diag - Discharge Diagnosis (1) Bacteremia Status: Acute Transfer Discharge Sum: Med - Medications Active and Home Medications: Home Medications Folic Acid/Vit Bcomp,C [Renal Vitamin Tablet] 0.8 mg PO DAILY 11/26/17 [History Confirmed 12/26/18] gemfibrozil 600 mg tablet 600 mg PO QAMAC #30 tab 07/04/18 [Rx Confirmed 12/26/18] aspirin 81 mg tablet,delayed release 81 mg PO QDAY 08/02/18 [History Confirmed 12/26/18] sucroferric oxyhydroxide 500 mg chewable tablet 1,000 mg PO .six times daily #36 0 tab 09/30/18 [Rx Confirmed 12/26/18] Clindamycin HCl [Cleocin] 300 mg PO TID #30 cap 12/25/18 [Rx Confirmed 12/26/18] Ondansetron [Zofran ODT] 4 mg SL Q4-6HP PRN #10 tab 12/25/18 [Rx Confirmed 12/26] sevelamer carbonate 800 mg tablet 1,600 mg PO TID #180 tab 12/25/18 [Rx Confirmed 12/26/18] Calcium Acetate [Phoslo] 1,334 mg PO TIDCC 12/26/18 [History Confirmed 12/26/18] Calcium Acetate [Phoslo] 667 mg PO TIDP PRN 12/26/18 [History Confirmed 12/26/18] Clopidogrel [Plavix] 75 mg PO DAILY 12/26/18 [History Confirmed 12/26/18] hydrOXYzine [Atarax] 25 mg PO HS 12/26/18 [History Confirmed 12/26/18] Active Medications Acetaminophen (Tylenol) 650 mg PO Q4-6HP PRN PRN Reason: PAIN/FEVER > 101 Last Admin: 12/27/18 17:10 Dose: 650 mg Documented by: Aspirin (Aspirin) 81 mg PO DAILY [facility] Last Admin: 12/28/18 08:46 Dose: 81 mg Documented by: Cefazolin Sodium (Ancef) 2 gm IV MoWe@1500 [facility] Cefazolin Sodium (Ancef) 3 gm IV Fr@1500 [facility] Clopidogrel Bisulfate (Plavix) 75 mg PO QDAY [facility] Last Admin: 12/28/18 08:46 Dose: 75 mg Documented by: Docusate Sodium (Colace) 100 mg PO BID [facility] Last Admin: 12/28/18 08:43 Dose: Not Given Documented by: Gemfibrozil (Lopid) 600 mg PO QAMAC [facility] Last Admin: 12/28/18 08:43 Dose: 600 mg Documented by: Heparin Sodium (Porcine) (Heparin) 5,000 unit SQ Q12 [facility] Last Admin: 12/28/18 08:46 Dose: 5,000 unit Documented by: Hydroxyzine HCl (Atarax) 25 mg PO HS [facility] Last Admin: 12/27/18 20:31 Dose: 25 mg Documented by: Acetaminophen (Ofirmev) 1,000 mg in 100 mls @ 200 mls/hr IV Q6HP PRN PRN Reason: PAIN/FEVER > 101 Last Infusion: 12/26/18 20:36 Dose: Infused Documented by: Loperamide HCl (Imodium) 2 mg PO PRN PRN PRN Reason: Diarrhea Last Admin: 12/28/18 09:04 Dose: 2 mg Documented by: Ondansetron HCl (Zofran) 4 mg IV Q4-6HP PRN PRN Reason: Nausea And Vomiting Last Admin: 12/27/18 04:53 Dose: 4 mg Documented by: Sucroferric Oxyhydroxide ( Velphoro) 500 Mg Tablet 1 dose PO .six times daily [facility] Last Admin: 12/28/18 09:57 Dose: 1 dose Documented by: Senna/Docusate Sodium (Senna Plus Tablet) 1 tab PO HS [facility] Last Admin: 12/27/18 20:19 Dose: Not Given Documented by: Sevelamer Carbonate (Renvela) 1,600 mg PO TIDCC [facility] Last Admin: 12/28/18 09:57 Dose: 1,600 mg Documented by: Sodium Chloride (Saline Flush) 10 ml IV Q8 [facility] Last Admin: 12/28/18 05:29 Dose: 10 ml Documented by: Transfer Discharge Sum: Hosp Hospital course: Transfer diagnoses * Staph aureus bacteremia-4 blood cultures positive so far. Repeat daily surveillance cultures pending. Unclear source. Negative ultrasound fistula. Nephrology recommends transfer to tertiary Center for vascular surgeon consultation for fistula graft evaluation/transesophageal echocardiogram in light of negative transthoracic echo , and also tagged white blood cell scan if further workup does not reveal a source . Infectious disease specialist. Patient is on vancomycin. ID recommends cefazolin 2/2/3 gm MFW post dialysis. received 3 g post-HD on Sunday * Sepsis secondary to above continue management per guidelines. Platelet improved. * ESRD on hemodialysis continue as per nephrology. MFW * History of CAD on aspirin and Plavix * Hyperlipidemia on gemfibrozil Brief hospital course 12/26 -Mr. Kruger is a 43 year old M with a history of ESRD on hemodialysis who presented to the ER the day before with fever during hemodialysis. Blood cultures were drawn and patient was discharged on clindamycin for presumed staph infection. He however did not have any particular area of inflammation or cellulitis changes. He was evaluated the following day at primary care physician's office and because of persistent fever, malaise he was referred back to the ER. Blood cultures from previous ER visit came back positive for gram- positive cocci. Initial workup was consistent with Sepsis from gram-positive bacteremia with elevated lactate, fever of 102. Nephrology was consulted. Patient was started on empiric antibiotic. Initial pro-calcitonin 5.09. Ultrasound fistula was performed to rule out fistula thrombosis/abscess. Negative UA/chest imaging/abdominal pelvis CT. No clear source was identified. Subsequently hospitalist service was consulted for admission and management of above. At the time of admission patient is alert oriented. He denies joint pain arthralgia and neck pain photophobia and headache or rash. He further denies hematuria flank pain, diarrhea 12/27-patient doing better. Fever defervesced this morning. T amx 102, However persistent bacteremia with additional 2 sets positive for gram-positive cocci. Transthoracic echo pending. Ongoing hemodialysis per nephrology. No source identified as yet. Denies arthralgia myalgia back pain. 12/28-fever defervesced. Feeling a lot better. TTE negative for vegetation cannot rule out PE. On vancomycin/cefazolin 3 g. ID recommends cefazolin 2/2/3 Gm MFW post dialysis. Nephrology recommends transfer to tertiary Center in light of suspected fistula graft infection mandating vascular surgery consultation and transesophageal echo/tagged white blood cell scan if indicated. Case discussed with [facility] Doctor Silverio hospitalist. Highly appreciate accepting this patient for further management. Please call hospitalist service at [phone] additional questions or concerns - Time Spent with Patient Total time spent providing and/or coordinating transfer services: Greater than 30 minutes Transfer Discharge Sum: Exam - Constitutional Vitals: Vital Signs Temp Pulse Pulse Resp BP BP Pulse Ox 12/28/18 07:24 99.0 F 74 20 108/55 97 12/28/18 04:00 98.1 F 82 18 94 12/28/18 00:00 97.8 F 78 18 95 12/27/18 20:00 98.9 F 94 H 18 122/78 95 12/27/18 17:10 101.2 F H 12/27/18 15:30 100.9 F H 78 16 118/59 96 12/27/18 12:45 98.8 F 69 119/54 12/27/18 12:12 80 112/43 12/27/18 12:00 16 96 12/27/18 11:44 80 116/58 12/27/18 11:14 80 116/53 12/27/18 10:48 80 114/50 12/27/18 10:13 69 113/45 Intake and Output 12/27/18 12/28/18 12/28/18 21:59 05:59 13:59 Intake Total 490 50 Balance 490 50 Intake: IV 250 50 Zosyn 2.25 gm In Dextrose 5% in 50 Water 50 ml @ 100 mls/hr IV Q8H [facility] Rx#:[id number] Oral 240 Other: Meal Dinner Percent of Meal Consumed 75% # Voids 1 1 # Bowel Movements 1 2 Weight 293 lb 8 oz Transfer Discharge Sum: A/P - Problem Maintenance (1) Bacteremia Status: Acute Quality Measure Queries - VTE Deep Vein Thrombosis/Pulmonary Embolism Present on Admission: No
--- NOTE | 2018-12-28 13:32 | Ultrasound Report ---
History: Elevated liver enzymes, renal dialysis patient, fever and positive blood cultures FINDINGS: The liver is mildly enlarged. Parenchyma is echogenic consistent with mild generalized fatty infiltration. There is no evidence of liver mass or abscess. Doppler shows normal blood flow in the hepatic and portal veins. The gallbladder has been removed. The bile ducts are nondilated. The head and body the pancreas are normal. The tail is obscured by bowel gas. Right kidney is atrophic and parenchyma is very echogenic due to chronic renal disease. No ascites or abscess are seen in the right upper quadrant. IMPRESSION: Mild hepatomegaly with fatty infiltration. No acute abnormality is seen there has been no significant change since 12/26/18 Interpreted and Authenticated by: Christopher Hadley 12/28/18
[2018-12-30] MEDS ORDERED: ceFAZolin 1 GM VIAL IV SCH (15:00)
[2019-01-03] MEDS ORDERED: ceFAZolin 1 GM VIAL IV SCH (15:00)
== END 2018-12-28 12:50 | disposition short-term general hospital (02) | DRG 871 ==
LOC: ED 14:31 → ICU 19:20
PROVIDERS: ADMIT Internal Medicine; ATTEND Internal Medicine

== ENCOUNTER 2019-09-22 11:25 | Inpatient (IN) ==
--- NOTE | 2019-09-22 11:46 | Emergency Department Note ---
Recheck HPI - General Chief Complaint: Recheck/Abnormal Lab/Rx Stated Complaint: positive blood cultures Time Seen by Provider: 09/22/19 11:31 Source: patient Mode of arrival: wheelchair Limitations: no limitations - History of Present Illness HPI Narrative: Patient is here from dialysis. Seen yesterday, diagnosed as having pneumonia. He did receive Levaquin. Apparently blood cultures came back as positive and he is scheduled to be admitted to the hospital. However, the hospitalist wanted him seen and evaluated in the emergency department. At this point, he has shaking chills, he does not look well. He just came back from dialysis, is complaining of right-sided shoulder pain, although his shoulder joint is not tender. Most the pain is in the trapezius muscle area and is also coughing, he also feels a little bit short of breath, he has slight nausea but no vomiting. Did have a loose stool today which was reported to be diarrhea. - Related Data Home Medications Medication Instructions Recorded Confirmed Folic Acid/Vit B Complex and C 0.8 mg PO DAILY 11/26/17 07/10/19 [Renal Vitamin Tablet] aspirin 81 mg tablet,delayed 81 mg PO QDAY 08/02/18 07/10/19 release ranitidine HCl 150 mg tablet 150 mg PO BID 02/13/19 07/10/19 calcium carbonate 200 mg calcium 200 mg PO QID tab 05/01/19 07/10/19 (500 mg) chewable tablet Previous Rx's Medication Instructions Recorded calcium acetate 667 mg capsule 1,334 mg PO .COMPLEX #360 cap 02/14/19 gemfibrozil 600 mg tablet 600 mg .ROUTE .COMPLEX #30 tab 02/25/19 clopidogrel 75 mg tablet 75 mg PO DAILY #30 tab 03/18/19 hydroxyzine HCl 25 mg tablet 25 mg PO QHS #90 tab 07/25/19 sevelamer HCl 800 mg tablet 2,400 mg PO TID #270 tab 09/02/19 Levofloxacin [Levaquin] 750 mg PO Q48H #7 tab 09/21/19 Allergies Allergy/AdvReac Type Severity Reaction Status Date / Time kiwi Allergy Severe Swelling Verified 05/01/19 13:28 of Lip/Tongue/Throat venom-honey bee Allergy Severe Swelling Verified 05/01/19 13:28 [bee venom (honey bee)] of Lip/Tongue/Throat peas Allergy Unknown Swelling Uncoded 05/01/19 13:28 of Lip/Tongue/Throat some tape & bandaids Allergy Unknown Redness of Uncoded 05/01/19 13:28 Skin Review of Systems All systems ED: reviewed and negative except as stated. Constitutional: Reports: fever, chills, weakness ENT ED: Denies: ear pain, throat pain Cardiovascular: Denies: palpitations Respiratory: Reports: shortness of breath, cough Gastrointestinal: Reports: abdominal pain, diarrhea Past Medical History - Past Medical History Source: nursing notes reviewed Medical history: Reports: arthritis, GERD, hyperlipidemia, obesity, osteoporosis, renal disease, thyroid disease, other Psychiatric history: Reports: anxiety Surgical history ED: Reports: angioplasty/stent, appendectomy, cholecystectomy - Social History smoking status: Former smoker Alcohol use: Reports: None Drug use: Reports: none Physical Exam Limitations: no limitations General appearance: alert, in distress, malaise Head: atraumatic, normocephalic, normal inspection Eye: Present: normal appearance, PERRL, EOMI. Absent: conjunctival injection ENT: Present: normal oropharynx, mucous membranes moist, TM's normal bilaterally Neck: Present: normal inspection, full ROM. Absent: tenderness, meningismus Chest: Present: normal inspection, symmetric chest wall rise Respiratory: Present: rales/crackles. Absent: wheezes Cardiovascular: Present: regular rate, tachycardia Abdominal: Present: soft, diminished bowel sounds. Absent: distention, tenderness, guarding Extremities: Present: normal inspection, full ROM, normal capillary refill, other (fistula to the left upper arm) Back: Present: normal inspection. Absent: CVA tenderness (R), CVA tenderness (L), vertebral tenderness Neurological: Present: alert, oriented X3 Psychiatric: Present: normal affect Skin: Present: warm, dry, mottled. Absent: cyanosis Course - Reevaluation(s) Reevaluation #1: At this point, the patient is being admitted with a diagnosis of sepsis. Pneumonia, right upper lobe. Discussed with Dr. Yañez Vital Signs Temperature 98.3 F 09/22/19 11:26 Pulse Rate 89 09/22/19 11:26 Respiratory Rate 18 09/22/19 11:26 Blood Pressure 107/56 09/22/19 11:26 Pulse Oximetry (%) 100 09/22/19 11:26 Temperature 98.6 F 09/22/19 12:27 Pulse Rate 89 09/22/19 13:02 Respiratory Rate 27 H 09/22/19 13:02 Blood Pressure 126/67 09/22/19 13:02 Pulse Oximetry (%) 97 09/22/19 13:02 Recheck/Abnormal Lab/Rx - Lab Data Result diagrams: 09/22/19 11:48 09/22/19 11:48 Lab Results 09/22/19 09/22/19 Range/Units 11:48 11:48 WBC 6.4 (4.50-11.00) K/mcL RBC 3.76 L (4.63-6.08) M/mcL Hgb 11.7 L (13.7-17.5) g/dL Hct 33.2 L (40.1-51.0) % MCV 88.3 (80.0-100.0) fL MCH 31.1 (26.0-34.0) pg MCHC 35.2 (31.0-36.0) g/dL RDW 12.5 (11.5-14.5) % Plt Count 162 (140-440) K/mcL MPV 10.0 (7.4-10.4) fL Gran % 83.3 H (38.0-78.0) % Lymph % (Auto) 10.6 L (15.5-49.0) % [place] % (Auto) 5.9 (1.0-12.0) % Eos % (Auto) 0 (0.0-7.0) % Baso % (Auto) 0.2 (0.0-2.0) % Gran # 5.33 (1.80-8.00) K/mcL Lymph # (Auto) 0.68 L (1.50-4.80) K/mcL [place] # (Auto) 0.38 (0.10-0.90) K/mcL Eos # (Auto) 0 (0.00-0.70) K/mcL Baso # (Auto) 0.01 (0.00-0.30) K/mcL Sodium 134 (133-145) mmol/L Potassium 3.8 (3.3-5.1) mmol/L Chloride 90 L (96-108) mmol/L Carbon Dioxide 26 (22-30) mmol/L Anion Gap 18.0 H (8-16) BUN 34 H (6-20) mg/dl Creatinine 5.6 H* (0.7-1.2) mg/dl GFR Calculation 11 Glucose 102 (70-105) mg/dL Calcium 9.9 (8.6-10.4) mg/dl Total Bilirubin 0.5 (0.0-1.0) mg/dL AST 50 H (0-37) U/l ALT 45 H (0-40) U/l Alkaline Phosphatase 119 H (39-117) U/L C-Reactive Protein 9.1 H (0.0-0.8) mg/dl Total Protein 8.2 (5.9-8.4) gm/dL Albumin 4.7 (3.2-5.2) gm/dL Globulin 3.5 (2.2-3.7) gm/dL Albumin/Globulin Ratio 1.3 (1.0-2.3) Disposition Pt seen by [employer]/PA only: No Clinical Impression: Sepsis Disposition: Xfer As Inpt ([facility]) Condition: Fair Referrals: Nelson Castelan MD [Primary Care Provider] -
[2019-09-22] MEDS ORDERED: ACETAMINOPHEN 325 MG TABLET PO ONE (11:48)
[2019-09-22] MEDS ORDERED: HYDROmorphone 2 MG/ML VIAL IV ONE (11:48)
[2019-09-22 12:19] LABS: Basophils # (Auto) 0.01 K/mcL (0.00-0.30); Basophils % (Auto) 0.2 % (0.0-2.0); Eosinophils # (Auto) 0 K/mcL (0.00-0.70); Eosinophils % (Auto) 0 % (0.0-7.0); Granulocytes % (Auto) 83.3 % (38.0-78.0); Hematocrit 33.2 % (40.1-51.0); Hemoglobin 11.7 g/dL (13.7-17.5); Lymphocytes # (Auto) 0.68 K/mcL (1.50-4.80); Lymphocytes % (Auto) 10.6 % (15.5-49.0); Mean Cell Volume 88.3 fL (80.0-100.0); Mean Corpuscular HGB Conc 35.2 g/dL (31.0-36.0); Monocytes # (Auto) 0.38 K/mcL (0.10-0.90); Monocytes % (Auto) 5.9 % (1.0-12.0); Platelet Count 162 K/mcL (140-440); RBC 3.76 M/mcL (4.63-6.08); Red Cell Distribution Width 12.5 % (11.5-14.5); WBC 6.4 K/mcL (4.50-11.00)
[2019-09-22 12:47] LABS: ALT/SGPT 45 U/l (0-40); AST/SGOT 50 U/l (0-37); Albumin 4.7 gm/dL (3.2-5.2); Albumin/Globulin Ratio 1.3 (1.0-2.3); Alkaline Phosphatase 119 U/L (39-117); Bilirubin,Total 0.5 mg/dL (0.0-1.0); Blood Urea Nitrogen 34 mg/dl (6-20); C-Reactive Protein 9.1 mg/dl (0.0-0.8); Calcium 9.9 mg/dl (8.6-10.4); Carbon Dioxide 26 mmol/L (22-30); Chloride 90 mmol/L (96-108); Globulin 3.5 gm/dL (2.2-3.7); Glomerular Filtration Rate 11; Glucose 102 mg/dL (70-105)
[2019-09-22] MEDS ORDERED: VANCOMYCIN 2,000 MG in 0.9 % SODIUM CHLORIDE 500 ML IV ONE (13:59)
--- NOTE | 2019-09-22 14:09 | Internal Med History&Physical ---
Medical - H&P: [facility] Patient information: Note initiated : 09/22/19 at 2:05 pm Service Date, if different from initiated Date: [] Patient: Odilon Kruger a 44 y/o M admitted on for positive blood cultures. Chief Complaint: [] History of present illness: Mr. Kruger is a 44 year old M Who presented to the ED for cold and flulike symptoms yesterday and had been having the symptoms for couple days. Had some nausea and did vomiting but felt that was from the phlegm he coughed up. He also has some diarrhea but his today with constipation is not too uncommon. Also fever chills. Work-up in the ED was essentially unremarkable except for possibly a left upper lobe lobe infiltrate that was suspected to be atelectasis versus other. Patient was given Levaquin and blood cultures were obtained. He was sent back in to the ED today because blood culture growing positive for gram-positive cocci. He does continue to have fever and chills. The mouth cough did become dry he otherwise was having some rhinorrhea and some sinus drainage. Cough the other day had some yellow phlegm to it. Now complains of some right neck shoulder pain which when he points to this area is more the supraclavicular region. He does have a lot of skin lesions he says he gets pimple-like spots on his arms and legs and back and he pops them pus comes out like a pimple. Review of Systems: Pertinent positives as above. Denies headache/vomiting/chest or abdominal pain. Remaining 10 point review of systems reviewed negative Medical - H&P: [facility] Medical history: Medical History (Last Reviewed 02/25/19 @ 08:03 by Lindsey Chandra RN) Bronchitis (Acute) Hypocalcemia (Acute) Hungry bone syndrome (Acute) Abnormal liver enzymes (Chronic) Anemia (Acute) Hyperthyroidism (Acute) Clostridium difficile infection (Acute) Prolonged bleeding time (Acute) Clostridium difficile diarrhea (Chronic) Viral infection (Acute) Right sciatic notch pain (Acute) Pain management (Acute) Arthralgia of right hip (Chronic) Trochanteric bursitis of right hip (Chronic) Paraspinal abscess (Acute) Pleurodynia (Acute) Antinuclear factor positive (Resolved) Lateral epicondylitis of right elbow (Acute) Hyperlipidemia (Chronic) End stage renal failure on dialysis (Chronic) Morbid obesity (Chronic) Arthralgia of both hands (Chronic) Osteoarthritis (Chronic) Heartburn (Chronic) Gout (Chronic) Positive blood cultures (Acute) Gastroenteritis (Inactive) Past Surgical History (Last Updated 09/03/19 @ 12:40 by Maribell Hurt) History of cholecystectomy (Acute) History of parathyroidectomy (Acute) H/O angioplasty (Chronic 04/11/17) Hx of appendectomy (Inactive) AV fistula Family History (Last Reviewed 02/25/19 @ 08:03 by Lindsey Chandra RN) Mother - Arthritis Father - Diabetes mellitus Sister - Diabetes mellitus, Seizure Grandfather-maternal - Myocardial Infarction Grandmother-maternal - Myocardial Infarction Social History (Last Updated 05/01/19 @ 14:15 by Nelson Castelan MD) Lives at home with and daughter Quit smoking 9 years ago and quit drinking alcohol 9 years ago Medical - H&P: Meds Home Medications Medication Instructions Recorded Confirmed Type Folic Acid/Vit B Complex and C 0.8 mg PO DAILY 11/26/17 09/22/19 History [Renal Vitamin Tablet] aspirin 81 mg tablet,delayed 81 mg PO QDAY 08/02/18 09/22/19 History release calcium acetate 667 mg capsule 1,334 mg PO .COMPLEX #360 cap 02/14/19 09/22/19 Rx gemfibrozil 600 mg tablet 600 mg .ROUTE .COMPLEX #30 tab 02/25/19 09/22/19 Rx clopidogrel 75 mg tablet 75 mg PO DAILY #30 tab 03/18/19 09/22/19 Rx calcium carbonate 200 mg calcium 200 mg PO QID tab 05/01/19 09/22/19 History (500 mg) chewable tablet sevelamer HCl 800 mg tablet 2,400 mg PO TID #270 tab 09/02/19 09/22/19 Rx Acetaminophen [Tylenol] 325 mg PO Q4HP PRN 09/22/19 09/22/19 History Gabapentin [Neurontin] 300 mg PO BID 09/22/19 09/22/19 History Loperamide HCl [Imodium A-D] 4 mg PO PRN PRN 09/22/19 09/22/19 History hydrOXYzine [Atarax] 25 mg PO QHS PRN 09/22/19 09/22/19 History Allergies Allergy/AdvReac Type Severity Reaction Status Date / Time kiwi Allergy Severe Swelling Verified 05/01/19 13:28 of Lip/Tongue/Throat venom-honey bee Allergy Severe Swelling Verified 05/01/19 13:28 [bee venom (honey bee)] of Lip/Tongue/Throat peas Allergy Unknown Swelling Uncoded 05/01/19 13:28 of Lip/Tongue/Throat some tape & bandaids Allergy Unknown Redness of Uncoded 05/01/19 13:28 Skin Medical - H&P: Exam - Constitutional Vitals: Temp Pulse Resp BP Pulse Ox 98.6 F 89 18 105/54 100 09/22/19 12:27 09/22/19 13:41 09/22/19 13:41 09/22/19 13:41 09/22/19 13:41 Exam: General: Alert, Awake, No acute Distress, obese Eyes/N/T: EOMI, PERRL, Head/Neck: neck supple, normocephalic atraumatic. Somewhat tender while palpating along the supraclavicular region and trapezius in that region. No pain when palpating around the shoulder joint. And no pain when palpating the cervical spine. CV: RRR, No murmurs, normal s1/s2 Pulm: Clear b/l, no wheezing/rhonchi/rales Abd: soft, nontender, +BS x4 Ext: no clubbing/cyanosis/edema Neuro: Alert, no focal deficits, moves all extremities, CN 2-12 grossly intact, symmetrical strength b/l upper/lower, sensations intact b/l upper/lower Skin: warm/dry. many crusted over lesions Medical - H&P: Reslt - Labs CBC & Chem 7: 09/22/19 11:48 09/22/19 11:48 Labs: Short CBC 09/22/19 Range/Units 11:48 WBC 6.4 (4.50-11.00) K/mcL Hgb 11.7 L (13.7-17.5) g/dL Hct 33.2 L (40.1-51.0) % Plt Count 162 (140-440) K/mcL BMP 09/22/19 11:48 Sodium 134 Potassium 3.8 Chloride 90 L Carbon Dioxide 26 BUN 34 H Creatinine 5.6 H* Glucose 102 Calcium 9.9 Liver Function 09/22/19 Range/Units 11:48 Total Bilirubin 0.5 (0.0-1.0) mg/dL AST 50 H (0-37) U/l ALT 45 H (0-40) U/l Alkaline Phosphatase 119 H (39-117) U/L Albumin 4.7 (3.2-5.2) gm/dL Medical - H&P: A/P - Narrative A/P Narrative: A: *Bactermia (GPC) 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
[2019-09-22] MEDS ORDERED: 0.9 % SODIUM CHLORIDE 1,000 ML IV SCH (14:30)
--- NOTE | 2019-09-22 14:42 | Ultrasound Report ---
History: Infection left forearm, status post recent hemodialysis in the same arm. FINDINGS: Beneath the skin and adjacent to the artery in the proximal left forearm there is a band of hypoechoic tissue which measures 1.5 x 2.9 cm. This is the site where the hemodialysis had been performed. Doppler shows some increased blood flow along the periphery of this tissue.. No liquefied component is seen. There is no evidence of a pseudoaneurysm. Patient has a patent fistula in the forearm for renal dialysis. IMPRESSION: Cellulitis versus hematoma at the site of the recent hemodialysis in the proximal left forearm Interpreted and Authenticated by: Christopher Hadley 09/22/19
[2019-09-22] MEDS ORDERED: IPRATROPIUM/ALBUTEROL 3 ML AMPUL.NEB NEB PRN (16:27)
[2019-09-22] MEDS ORDERED: VANCOMYCIN PER PHARMACY IV SCH (16:27)
[2019-09-22] MEDS ORDERED: SENNOSIDES 1 TABLET PO PRN (16:27)
[2019-09-22] MEDS ORDERED: ONDANSETRON 4 MG/2 ML VIAL IV PRN (16:27)
--- NOTE | 2019-09-22 16:32 | Nephrology Consult Note ---
History of Present Illness - Reason for Consult Patient information: Note initiated : 09/22/19 at 4:28 pm Service Date, if different from initiated Date: [] Patient: Odilon Kruger 44 y/o M admitted on 09/22/19 for positive blood cultures. Chief Complaint: [] Consult date: 09/22/19 - Chief Complaint Fever/chills - History of Present Illness Mr. Kruger is a 44-year-old male with end-stage renal disease on dialysis Sunday via left upper extremity AVF, chronic anemia, history of MSSA bacteremia and December 2018, hospitalized in [place], endocarditis-repeat echocardiogram done in [place] without evidence of endocarditis, who presented to the ED 09/21/2019 with fever, chills, nausea, vomiting, diarrhea. Chest x-ray was done and was suspicious for pneumonia. Blood cultures were done as well. I was notified this morning by the ED physician that his blood cultures were positive. The patient had dialysis 09/22/2019, was subsequently transferred to the emergency department for admission for management of bacteremia. Review of systems Fever, chills, nausea and vomiting resolved. Cough, intermittent productive of yellow sputum. Malaise Intermittent rash on his left upper extremity Otherwise negative 10 point Past History Past medical history: Anemia [place] bone syndrome Secondary hyperparathyroidism C. difficile infection Joint pain Hyperlipidemia Diabetes Past surgical history: Parathyroidectomy Angioplasty Cholecystectomy Appendectomy Past family history: Diabetes sister and father Heart disease grandparents Past social history: He is disabled, former smoker. No illicit drug use Medications and Allergies Home Medications Medication Instructions Recorded Confirmed Type Folic Acid/Vit B Complex and C 0.8 mg PO DAILY 11/26/17 09/22/19 History [Renal Vitamin Tablet] aspirin 81 mg tablet,delayed 81 mg PO QHS 08/02/18 09/22/19 History release calcium acetate 667 mg capsule 1,334 mg PO .COMPLEX #360 cap 02/14/19 09/22/19 Rx gemfibrozil 600 mg tablet 600 mg .ROUTE .COMPLEX #30 tab 02/25/19 09/22/19 Rx clopidogrel 75 mg tablet 75 mg PO DAILY #30 tab 03/18/19 09/22/19 Rx calcium carbonate 200 mg calcium 200 mg PO QID tab 05/01/19 09/22/19 History (500 mg) chewable tablet sevelamer HCl 800 mg tablet 2,400 mg PO TID #270 tab 09/02/19 09/22/19 Rx Acetaminophen [Tylenol] 325 mg PO Q4HP PRN 09/22/19 09/22/19 History Loperamide HCl [Imodium A-D] 4 mg PO PRN PRN 09/22/19 09/22/19 History hydrOXYzine [Atarax] 25 mg PO QHS PRN 09/22/19 09/22/19 History Allergies Allergy/AdvReac Type Severity Reaction Status Date / Time kiwi Allergy Severe Swelling Verified 05/01/19 13:28 of Lip/Tongue/Throat venom-honey bee Allergy Severe Swelling Verified 05/01/19 13:28 [bee venom (honey bee)] of Lip/Tongue/Throat peas Allergy Unknown Swelling Uncoded 05/01/19 13:28 of Lip/Tongue/Throat some tape & bandaids Allergy Unknown Redness of Uncoded 05/01/19 13:28 Skin Exam - Vital Signs Vital signs: Temp Pulse Resp BP Pulse Ox 38.1 C H 85 10 L 122/54 97 09/22/19 16:05 09/22/19 16:05 09/22/19 16:05 09/22/19 16:05 09/22/19 16:05 - General Appearance General appearance: obese EENT: ATNC Neck: no JVD Respiratory: course breath sounds Cardiology: no rub, no gallops, no edema Gastrointestinal: normoactive bowel sounds Integumentary: warm and dry (Pale) Neurologic: alert and oriented x3 Psychiatric: mood/affect appropriate Results - Lab Results 09/23/19 05:55 09/23/19 05:55 Most recent lab results Calcium 9.9 mg/dl (8.6-10.4) 09/22/19 11:48 Assessment and Plan (1) Bacteremia Status: Acute Priority: High (2) ESRD (end stage renal disease) on dialysis Status: Acute Priority: Medium - Narrative A/P Narrative: 44-year-old male admitted with bacteremia/sepsis. He had MSSA in December 2018. He was hospitalized approximately 2 weeks in [place]. He had endocarditis. ESRD on HD MWF at [facility] Presumed secondary to NSAID use last HD 09/22/2018 next HD 09/24/2018, 4 hours Estimated dry weight 145.5 kg access LUE AVF Extremity ultrasound 09/22/2019 read as cellulitis versus hematoma at the site of the recent hemodialysis in the proximal left arm. Ultrasound 07/01/2019 radial artery to cephalic vein fistula forearm 50% stenosis of the cephalic vein. Ulnar artery to brachial vein graft 50% stenosis of the graft. He underwent angioplasty of the left upper extremity fistula 07/14/2019 hemodynamics- volume Normotensive, clinically euvolemic. Limited echocardiogram done 09/22/2019 pending read. acid-base Serum bicarbonate 26, maintained with hemodialysis. bone-mineral He has hyperparathyroidism of renal origin. His PTH is over 1000 consistently. He is status post subtotal parathyroidectomy. I plan to repeat imaging studies and refer him to surgery once medically stable Continue outpatient binders. Parsabiv currently on hold as the patient had paresthesia. hematologic Hemoglobin 11.7 after dialysis today. Anemia of chronic disease. Managed outpatient. Sepsis/bacteremia Management per primary team and ID. Limited echocardiogram obtained, results pending
[2019-09-22] MEDS ORDERED: CALCIUM ACETATE 667 MG CAPSULE PO PRN (16:37)
[2019-09-22] MEDS: 0.9 % SODIUM CHLORIDE 10 ML SYRINGE IV SCH ×2 (16:56→21:13)
--- NOTE | 2019-09-22 17:18 | Event Note ---
44 year old man with ESRD (dialysis on Sun, Sun, Sun). Dialysis access is fistula. No HD catheter. Now with Staph aureus bacteremia (mec A gene neg; s/o MSSA). Stop IV Vanc. Start IV Cefazolin after dialysis with dosing of 2 gm on Sunday, 2 gm on Sunday and 3 gm on Sunday. Consider repeat blood Cx tomorrow and TTE in 1-2 days. will follow with a full note tomorrow.
[2019-09-22] MEDS: CALCIUM ACETATE 667 MG CAPSULE PO SCH (18:01)
[2019-09-22] MEDS: CALCIUM CARBONATE 500 MG TAB.CHEW PO SCH ×2 (18:02→21:12)
[2019-09-22] MEDS: ACETAMINOPHEN 325 MG TABLET PO PRN ×2 (18:02→23:57)
[2019-09-22] MEDS: SEVELAMER 800 MG TABLET PO SCH (18:02)
[2019-09-22] MEDS: ceFAZolin 1 GM VIAL IV SCH (18:03)
[2019-09-22 19:52] LABS: Appearance,Urine CLEAR; Bacteria,Urine 0 /hpf (0); Bilirubin,Urine NEG (NEG); Color,Urine YELLOW; Culture Indicated,Urine NO; Glucose,Urine (UA) 150 mg/dL (NEG); Ketones,Urine NEG (NEG); Leukocyte Esterase,Urine NEG /uL (NEG); Mucus,Urine FEW /hpf (0); Nitrate,Urine NEG (NEG); Protein,Urine 100 mg/dL (NEG); Specific Gravity,Urine 1.008 (1.000-1.035); Urine Blood 0.2 mg/dL (<0.03); Urine RBC 0 /hpf (0-1); Urine Squamous Epithelial Cell 0 /hpf (0-4); Urine WBC 1 /hpf (0-4); Urobilinogen,Urine NEG (NEG)
[2019-09-22 19:56] LABS: Amphetamine Screen,Urine NONE DETECTED (NONDETECTED); Barbiturate Screen,Urine NONE DETECTED (NONDETECTED); Benzodiazepines Screen,Urine NONE DETECTED (NONDETECTED); Cannabinoid Screen,Urine NONE DETECTED (NONDETECTED); Cocaine Screen,Urine NONE DETECTED (NONDETECTED); Opiate Screen,Urine NONE DETECTED (NONDETECTED); Oxycodone, Urine Screen NONE DETECTED (NONDETECTED); Phencyclidine Screen,Urine NONE DETECTED (NONDETECTED)
[2019-09-22] MEDS: hydrOXYzine 25 MG TABLET PO PRN (21:12)
[2019-09-22] MEDS: DOCUSATE SODIUM 100 MG CAPSULE PO SCH (21:12)
[2019-09-22] MEDS: GABAPENTIN 300 MG CAPSULE PO SCH ×2 (21:12→21:15)
[2019-09-22] MEDS: HEPARIN 5,000 UNIT/ML VIAL SQ SCH (21:12)
[2019-09-22] MEDS: FAMOTIDINE 20 MG TABLET PO SCH (21:13)
[2019-09-22] MEDS ORDERED: ASPIRIN 81 MG TAB.CHEW ONE (22:55)
[2019-09-22] MEDS: ASPIRIN 81 MG TAB.CHEW PO SCH (23:50)
[2019-09-22] MEDS: CLOPIDOGREL 75 MG TABLET PO SCH (23:50)
[2019-09-23] MEDS: 0.9 % SODIUM CHLORIDE 10 ML SYRINGE IV SCH ×3 (05:03→21:40)
--- NOTE | 2019-09-23 07:13 | Internal Med Progress Note ---
Medical - PN: Subj Patient information: Note initiated : 09/23/19 at 7:11 am Service Date, if different from initiated Date: [] Patient: Odilon Kruger 44 y/o M admitted on 09/22/19 for positive blood cultures. Chief Complaint: [] Interval history: Mr. Kruger is a 44 year old M Who presented to the ED for cold and flulike symptoms yesterday and had been having the symptoms for couple days. Had some nausea and did vomiting but felt that was from the phlegm he coughed up. He also has some diarrhea but his today with constipation is not too uncommon. Also fever chills. Work-up in the ED was essentially unremarkable except for possibly a left upper lobe lobe infiltrate that was suspected to be atelectasis versus other. Patient was given Levaquin and blood cultures were obtained. He was sent back in to the ED today because blood culture growing positive for gram-positive cocci. He does continue to have fever and chills. The mouth cough did become dry he otherwise was having some rhinorrhea and some sinus drainage. Cough the other day had some yellow phlegm to it. Now complains of some right neck shoulder pain which when he points to this area is more the supraclavicular region. He does have a lot of skin lesions he says he gets pimple-like spots on his arms and legs and back and he pops them pus comes out like a pimple. 09/23 Patient reports poor sleep last night. CT chest obtained today. Only complaint is some discomfort over the right superior aspect of his chest into the collarbone area. This discomfort seems to migrate as before it is over by the trapezius and now its anterior chest wall. Denies fever chills Review of Systems: denies headache/fever/chills/nausea/vomiting/abdominal pain/cough/dyspnea/diarrhea. Otherwise see above. - Constitutional Vitals: Vital Signs Temp Pulse Resp BP Pulse Ox 98.7 F 80 18 119/60 97 09/23/19 03:12 09/23/19 03:12 09/23/19 03:12 09/23/19 03:12 09/23/19 03:12 Period Temp Pulse Resp BP Sys/Cancino Pulse Ox Last 24 Hr 98.3 F-101.8 F 79-92 10-34 100-147/36-68 93-100 Intake and Output 09/22/19 09/23/19 09/23/19 21:59 05:59 13:59 Intake Total 1263 600 Output Total 200 Balance 1263 600 -200 Weight 145.15 kg Intake & Output: Intake & Output 09/22/19 09/23/19 09/23/19 21:59 05:59 13:59 Intake Total 1263 600 Output Total 200 Balance 1263 600 -200 Weight 145.15 kg Intake: IV 1263 Sodium Chloride 0.9% 1,000 ml @ 1000 100 mls/hr IV .Q10H KIMBERLY Rx#: [id number] Vancomycin 2,000 mg In Sodium 263 Chloride 0.9% 500 ml @ 250 mls/ hr IV ONCE ONE Rx#:[id number] Oral 600 Output: Void Amount 200 Other: Urine Appearance Clear Urine Color Bright Yellow Urine Odor Normal Exam: General: Alert, Awake, No acute Distress, obese Eyes/N/T: EOMI, Head/Neck: neck supple, CV: RRR, No murmurs, normal s1/s2 Pulm: Clear b/l, no wheezing/rhonchi/rales Abd: soft, nontender, +BS x4 Ext: no clubbing/cyanosis/edema Neuro: Alert, no focal deficits, moves all extremities, Skin: warm/dry. many crusted over lesions, small annular - pt reports "pimple- like" that are pruritic and breaks them open as such - attributes to ESRD Medical - PN: Obj Da - Labs CBC & Chem 7: 09/23/19 05:55 09/23/19 05:55 Labs: Abnormal Lab Results 09/22/19 09/22/19 09/22/19 16:27 11:48 11:48 RBC Hgb Hct Gran % Lymph % (Auto) Lymph # (Auto) ESR 86 H Chloride Anion Gap BUN Creatinine AST ALT Alkaline Phosphatase C-Reactive Protein 9.6 H Urine Protein 100 A Urine Glucose (UA) 150 A Urine Occult Blood 0.2 A 09/22/19 09/22/19 11:48 11:48 RBC 3.76 L Hgb 11.7 L Hct 33.2 L Gran % 83.3 H Lymph % (Auto) 10.6 L Lymph # (Auto) 0.68 L ESR Chloride 90 L Anion Gap 18.0 H BUN 34 H Creatinine 5.6 H* AST 50 H ALT 45 H Alkaline Phosphatase 119 H C-Reactive Protein 9.1 H Urine Protein Urine Glucose (UA) Urine Occult Blood Meds: Medications Acetaminophen (Tylenol) 650 mg PO Q6HP PRN PRN Reason: PAIN/FEVER > 101 Last Admin: 09/22/19 23:57 Dose: 650 mg Documented by: Albuterol/Ipratropium (Duoneb) 3 ml NEB Q4HP PRN PRN Reason: Shortness Of Breath Aspirin (Aspirin) 81 mg PO QHS [facility] Last Admin: 09/22/19 23:50 Dose: 81 mg Documented by: Calcium Acetate (Phoslo) 1,334 mg PO TIDCC [facility] Last Admin: 09/22/19 18:01 Dose: 1,334 mg Documented by: Calcium Acetate (Phoslo) 1,334 mg PO DAILYP PRN PRN Reason: SNACK Calcium Carbonate/Glycine (Tums) 500 mg PO QID [facility] Last Admin: 09/22/19 21:12 Dose: 500 mg Documented by: Cefazolin Sodium (Ancef) 2 gm IV MoWe@1800 [facility] Last Admin: 09/22/19 18:03 Dose: 2 gm Documented by: Cefazolin Sodium (Ancef) 3 gm IV Fr@1800 [facility] Clopidogrel Bisulfate (Plavix) 75 mg PO QHS [facility] Last Admin: 09/22/19 23:50 Dose: 75 mg Documented by: Docusate Sodium (Colace) 100 mg PO BID [facility] Last Admin: 09/22/19 21:12 Dose: 100 mg Documented by: Famotidine (Pepcid) 20 mg PO HS [facility] Last Admin: 09/22/19 21:13 Dose: 20 mg Documented by: [facility]) [facility] Heparin Sodium (Porcine) (Heparin) 5,000 unit SQ Q12 [facility] Last Admin: 09/22/19 21:12 Dose: 5,000 unit Documented by: Hydroxyzine HCl (Atarax) 25 mg PO QHS PRN PRN Reason: Itching Last Admin: 09/22/19 21:12 Dose: 25 mg Documented by: Morphine Sulfate (Morphine) 1 - 4 mg IV Q3HP PRN; Protocol PRN Reason: Per Pain Protocol Last Admin: 09/23/19 06:03 Dose: 4 mg Documented by: Ondansetron HCl (Zofran) 4 mg IV Q4HP PRN PRN Reason: Nausea And Vomiting Polyethylene Glycol (Miralax) 17 gm PO DAILYP PRN PRN Reason: Constipation Senna (Senokot) 2 tab PO DAILYP PRN PRN Reason: Constipation Sevelamer Carbonate (Renvela) 2,400 mg PO TIDCC [facility] Last Admin: 09/22/19 18:02 Dose: 2,400 mg Documented by: Sodium Chloride (Saline Flush) 10 ml IV Q8 [facility] Last Admin: 09/23/19 05:03 Dose: 10 ml Documented by: Medical - PN: A/P - Time Spent With Patient Total time spent is greater than 50% in coordination of care (as documented) at patient's floor/unit and/or counseling patient: - Narrative A/P Narrative: A: *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
[2019-09-23 07:49] LABS: Basophils # (Auto) 0.01 K/mcL (0.00-0.30); Basophils % (Auto) 0.2 % (0.0-2.0); Eosinophils # (Auto) 0.02 K/mcL (0.00-0.70); Eosinophils % (Auto) 0.3 % (0.0-7.0); Granulocytes % (Auto) 72.7 % (38.0-78.0); Hematocrit 27.6 % (40.1-51.0); Hemoglobin 9.7 g/dL (13.7-17.5); Lymphocytes # (Auto) 1.05 K/mcL (1.50-4.80); Lymphocytes % (Auto) 17.7 % (15.5-49.0); Mean Corpuscular HGB Conc 35.1 g/dL (31.0-36.0); Mean Platelet Volume 10.7 fL (7.4-10.4); Monocytes # (Auto) 0.54 K/mcL (0.10-0.90); Monocytes % (Auto) 9.1 % (1.0-12.0); Platelet Count 125 K/mcL (140-440); Red Cell Distribution Width 12.9 % (11.5-14.5); WBC 5.9 K/mcL (4.50-11.00)
[2019-09-23 07:54] LABS: ALT/SGPT 36 U/l (0-40); AST/SGOT 50 U/l (0-37); Albumin 3.8 gm/dL (3.2-5.2); Albumin/Globulin Ratio 1.3 (1.0-2.3); Alkaline Phosphatase 86 U/L (39-117); Bilirubin,Direct < 0.2 mg/dL (0.0-0.3); Bilirubin,Total 0.3 mg/dL (0.0-1.0); Blood Urea Nitrogen 59 mg/dl (6-20); Calcium 8.7 mg/dl (8.6-10.4); Carbon Dioxide 24 mmol/L (22-30); Chloride 90 mmol/L (96-108); Globulin 2.9 gm/dL (2.2-3.7); Glomerular Filtration Rate 6; Glucose 93 mg/dL (70-105); Lactate Dehydrogenase 272 U/L (94-250); Phosphorous 5.6 mg/dL (2.7-4.5); Triglycerides 190 mg/dl (<150); Uric Acid 5.4 mg/dL (2.5-8.0)
[2019-09-23] MEDS ORDERED: IOPAMIDOL 100 ML BOTTLE IV ONE (08:08)
[2019-09-23] MEDS: GEMFIBROZIL 600 MG TABLET PO SCH (08:26)
--- NOTE | 2019-09-23 08:47 | Cat Scan Report ---
History: Bacteremia with positive blood cultures, cough and pain in the right supraclavicular region TECHNIQUE: The chest was imaged following injection of intravenous nonionic contrast. Sagittal, coronal and axial MIPS images were created. Radiation exposure was limited using dose reduction technology. FINDINGS: There are several surgical clips anterior to the right lobe of the thyroid and isthmus. The right lobe is smaller than the left. There is no apparent mass or inflammation in this region. The supraclavicular fossa appears normal without evidence of a mass or lymphadenopathy. No axillary lymph nodes are seen. The central pulmonary arteries are normal with no central pulmonary emboli. The study was not performed with CT angiogram protocol. The heart size is normal. There is a moderate amount of mixed plaque in the left anterior descending coronary. Mild plaque formation is seen in the circumflex. The aorta is normal caliber and there are few scattered plaques. No dissection is present. There is a small peripheral infiltrate adjacent to the pleura and measures approximately 1.8 cm in size. There are a few other smaller subpleural nodular infiltrates seen laterally in the left upper lobe and lingula and near the minor fissure in the right upper lobe. Subtle groundglass alveolar infiltrates are present in the posterior lung bases. Patient has some underlying parenchymal scarring in the right lower lobe and adjacent to the major fissure and inferior segment lingula. The scar was present on a prior abdomen CT done on 04/07/16. There are new bands of discoid atelectasis in the right lower lobe and groundglass alveolar opacities are also new. Patient has a tiny right-sided pleural effusion in the posterior costophrenic sulcus. There is no abnormal fluid drained. Patient is developing small cysts in the upper pole the left kidney. IMPRESSION: Nonspecific inflammation in both lungs with small nodular peripheral infiltrates in the upper lung rachel. There are also subtle groundglass alveolar infiltrates in the lower lobes, right greater than left. With positive blood cultures, this is more likely due to pneumonia rather than collagen vascular disease or a hypersensitivity reaction. Moderate atherosclerotic disease involving the left anterior descending coronary. Postsurgical changes in the thyroid. No other abnormality is seen in the supraclavicular region. Interpreted and Authenticated by: Christopher Hadley 09/23/19
[2019-09-23] MEDS ORDERED: CLOPIDOGREL 75 MG TABLET PO SCH (09:00)
[2019-09-23] MEDS ORDERED: ASPIRIN 81 MG TAB.CHEW PO SCH (09:00)
[2019-09-23] MEDS: DOCUSATE SODIUM 100 MG CAPSULE PO SCH ×2 (09:05→21:31)
[2019-09-23] MEDS: HEPARIN 5,000 UNIT/ML VIAL SQ SCH ×2 (09:05→21:31)
[2019-09-23] MEDS: CALCIUM CARBONATE 500 MG TAB.CHEW PO SCH ×4 (09:05→21:30)
[2019-09-23] MEDS: POLYETHYLENE GLYCOL 3350 17 GM PACKET PO PRN (09:05)
[2019-09-23] MEDS: CALCIUM ACETATE 667 MG CAPSULE PO SCH ×3 (09:06→18:06)
[2019-09-23] MEDS: SEVELAMER 800 MG TABLET PO SCH ×3 (09:06→18:06)
[2019-09-23] MEDS: BENZOCAINE/MENTHOL 1 LOZENGE PO PRN ×2 (10:01→21:30)
[2019-09-23] MEDS: hydrOXYzine 25 MG TABLET PO PRN ×2 (10:06→21:30)
--- NOTE | 2019-09-23 14:49 | Nephrology Progress Note ---
Subjective Patient information: Note initiated : 09/23/19 at 2:48 pm Service Date, if different from initiated Date: [] Patient: Odilon Kruger 44 y/o M admitted on 09/22/19 for positive blood cultures. Chief Complaint: [] Interval history: He continues to have discomfort in the right supraclavicular area radiating to the neck, although improved CT of the chest done, results reviewed Blood cultures positive for MSSA, patient being followed by Dr. Gary present at the bedside at the time of my visit Pertinent ROS: Denies chills, shortness of breath; continues to have an intermittent cough. Otherwise as above Objective - Vital Signs Vital signs: Vital Signs Temp Pulse Pulse Resp BP BP Pulse Ox 09/23/19 12:00 37.2 C 80 18 122/58 96 09/23/19 08:00 37.5 C H 88 18 119/52 98 09/23/19 03:12 37.1 C 80 18 119/60 97 09/22/19 23:57 37.4 C H 09/22/19 23:52 37.4 C H 86 20 114/56 97 09/22/19 20:14 38.8 C H 83 18 110/36 94 09/22/19 20:00 97 09/22/19 17:30 38.2 C H 92 H 18 116/56 98 09/22/19 16:05 38.1 C H 85 10 L 122/54 97 09/22/19 16:01 85 10 L 122/54 97 09/22/19 16:00 84 10 L 95 09/22/19 15:41 83 10 L 122/65 97 09/22/19 15:21 83 118/62 94 09/22/19 15:01 85 19 117/57 93 Intake and Output 09/23/19 09/23/19 09/23/19 05:59 13:59 21:59 Intake Total 600 Output Total 200 Balance 600 -200 Intake: Oral 600 Output: Void Amount 200 Other: Urine Appearance Clear Urine Color Bright Yellow Urine Odor Normal Weight 145.15 kg Patient Weight 09/24/19 05:59 Weight 145.15 kg Intake & Output: Intake & Output 09/23/19 09/23/19 09/23/19 05:59 13:59 21:59 Intake Total 600 Output Total 200 Balance 600 -200 Weight 145.15 kg Intake: Oral 600 Output: Void Amount 200 Other: Urine Appearance Clear Urine Color Bright Yellow Urine Odor Normal - General Appearance General appearance: obese EENT: ATNC Cardiology: no edema, regular rate, regular rhythm Gastrointestinal: normoactive bowel sounds - Lab 09/23/19 05:55 09/23/19 05:55 Most recent lab results Calcium 8.7 mg/dl (8.6-10.4) 09/23/19 05:55 Phosphorus 5.6 mg/dL (2.7-4.5) H 09/23/19 05:55 Magnesium 1.9 mg/dL (1.6-2.5) 09/23/19 05:55 Assessment and Plan (1) Bacteremia Status: Acute Priority: High (2) ESRD (end stage renal disease) on dialysis Status: Acute Priority: Medium - Narrative A/P Narrative: 44-year-old male admitted with bacteremia/sepsis. He had MSSA in December 2018. He was hospitalized approximately 2 weeks in [place]. There was a concern for endocarditis. [facility] Presumed secondary to NSAID use last HD 09/22/2018 next HD 09/24/2018, 4 hours. 3K bath, UF to dry weight Estimated dry weight 145.5 kg access LUE AVF Extremity ultrasound 09/22/2019 read as cellulitis versus hematoma at the site of the recent hemodialysis in the proximal left arm. Ultrasound 07/01/2019 radial artery to cephalic vein fistula forearm 50% stenosis of the cephalic vein. Ulnar artery to brachial vein graft 50% stenosis of the graft. He underwent angioplasty of the left upper extremity fistula 07/14/[address] Gary about his AV graft. There is a concern that the bacteria formed/can form a biofilm and colonize the AV graft with subsequent intermittent bacteremia. I will get in touch with our vascular surgeon and see if the AV graft can be removed. I will also follow-up on his repeat blood cultures. hemodynamics- volume Normotensive, clinically euvolemic. Limited echocardiogram done 09/22/2019 pending read. acid-base Serum bicarbonate 24, maintained with hemodialysis. bone-mineral He has hyperparathyroidism of renal origin. His PTH is over 1000 consistently. He is status post subtotal parathyroidectomy. I plan to repeat imaging studies and refer him to surgery once medically stable-he will need a parathyroid nuclear medicine scan Continue outpatient binders. Rodgerabiv currently on hold as the patient had paresthesia. hematologic Hemoglobin 9.7. Ferritin 835, T sat 39.4. Iron replete. Sepsis/bacteremia Management per primary team and ID-Access management as above. Echocardiogram was poor quality. Results reviewed. Antibiotics changed to cefazolin
--- NOTE | 2019-09-23 15:40 | Infectious Disease Consult ---
History of Present Illness Patient information: Note initiated : 09/23/19 at 3:23 pm Service Date, if different from initiated Date: [] Patient: Odilon Kruger 44 y/o M admitted on 09/22/19 for positive blood cultures. Chief Complaint: [] Consult date: 09/23/19 Requesting Physician: Mario Yañez Reason for Consult: Staph aureus bacteremia Chief complaint: I had fever and right shoulder pain History of present illness: 44 year old man with PMHx of ESRD (access: left forearm AVF) well known to me from last year for f/u of [place] TV and AV MSSA endocarditis [January 2019]. Pt was successfully treated with IV Vanc for 6 weeks, with a neg blood CX and neg ARASELI after completion of antibiotics. Pt started feeling sick, with fever, rt shoulder area pain, body aches, cough on Sunday (09/20/2019). He also had few bouts of vomiting and nausea. The fever persisted and pt was seen in [facility] ED the next day where he was given Levaquin for concerns of pneumonia. Chest x-ray showed a left upper lobe infiltrate. Blood cultures were also drawn which came back positive for gram- positive cocci in clusters and patient was admitted to the hospital. Since admission he has been feeling better. His blood culture turned out to be staph aureus with negative mec A gene. He was on IV vancomycin until yesterday when he was switched to IV cefazolin late afternoon. At time of visit today, he confirms above history. Adds that his shoulder pain is still there and now is also having pain in his neck and upper chest. He denies any recent steroid injections, procedures [other than intermittent hemodialysis], skin boils. Mentions that his also has flulike symptoms. Denies any pain, redness at site of his AV graft and AV fistula. Review of Systems All systems PM: reviewed and no additional remarkable complaints except as stated Past History Past family history: Mother - Arthritis Father - Diabetes mellitus Sister - Diabetes mellitus, Seizure Grandfather-maternal - Myocardial Infarction Grandmother-maternal - Myocardial Infarction Past social history: Lives at home with and daughter Quit smoking 9 years ago and quit drinking alcohol 9 years ago Does not do inject any illicit drug Medications and Allergies Home Medications Medication Instructions Recorded Confirmed Type Folic Acid/Vit B Complex and C 0.8 mg PO DAILY 11/26/17 09/22/19 History [Renal Vitamin Tablet] aspirin 81 mg tablet,delayed 81 mg PO QHS 08/02/18 09/22/19 History release calcium acetate 667 mg capsule 1,334 mg PO .COMPLEX #360 cap 02/14/19 09/22/19 Rx gemfibrozil 600 mg tablet 600 mg .ROUTE .COMPLEX #30 tab 02/25/19 09/22/19 Rx clopidogrel 75 mg tablet 75 mg PO DAILY #30 tab 03/18/19 09/22/19 Rx calcium carbonate 200 mg calcium 200 mg PO QID tab 05/01/19 09/22/19 History (500 mg) chewable tablet sevelamer HCl 800 mg tablet 2,400 mg PO TID #270 tab 09/02/19 09/22/19 Rx Acetaminophen [Tylenol] 325 mg PO Q4HP PRN 09/22/19 09/22/19 History Loperamide HCl [Imodium A-D] 4 mg PO PRN PRN 09/22/19 09/22/19 History hydrOXYzine [Atarax] 25 mg PO QHS PRN 09/22/19 09/22/19 History Allergies Allergy/AdvReac Type Severity Reaction Status Date / Time kiwi Allergy Severe Swelling Verified 05/01/19 13:28 of Lip/Tongue/Throat venom-honey bee Allergy Severe Swelling Verified 05/01/19 13:28 [bee venom (honey bee)] of Lip/Tongue/Throat peas Allergy Unknown Swelling Uncoded 05/01/19 13:28 of Lip/Tongue/Throat some tape & bandaids Allergy Unknown Redness of Uncoded 05/01/19 13:28 Skin Physical Examination Vital signs: Temp Pulse Resp BP Pulse Ox 37.2 C 80 18 122/58 96 09/23/19 12:00 09/23/19 12:00 09/23/19 12:00 09/23/19 12:00 09/23/19 12:00 General appearance: no acute distress Eyes pulmonary: nonicteric ENT: oropharynx moist, other (No thrush) Auscultation: right: diminished breath sounds (Rest vesicular breath sounds, no crackles) Cardiovascular: other (S1-S2 normal, no murmurs heard) Gastrointestinal: normoactive bowel sounds, soft, other (Has some discomfort in lower right and left quadrants) Integumentary: normal Extremities: other (Has palpable thrill over his AV fistula. No redness or swelling noted. No signs of inflammation over the site of AV graft in left forearm) Musculoskeletal: other (no point tenderness over spinous processes of vertebrae) Results - Laboratory Findings CBC and BMP: 09/23/19 05:55 09/23/19 05:55 Abnormal lab findings: Abnormal Labs 09/22/19 09/22/19 09/22/19 11:48 11:48 11:48 RBC 3.76 L Hgb 11.7 L Hct 33.2 L Plt Count MPV Gran % 83.3 H Lymph % (Auto) 10.6 L Lymph # (Auto) 0.68 L ESR 86 H Chloride 90 L Anion Gap 18.0 H BUN 34 H Creatinine 5.6 H* Phosphorus GGT AST 50 H ALT 45 H Alkaline Phosphatase 119 H Lactate Dehydrogenase C-Reactive Protein 9.1 H Triglycerides Urine Protein Urine Glucose (UA) Urine Occult Blood 09/22/19 09/22/19 09/23/19 11:48 16:27 05:55 RBC 3.10 L Hgb 9.7 L Hct 27.6 L Plt Count 125 L MPV 10.7 H Gran % Lymph % (Auto) Lymph # (Auto) 1.05 L ESR Chloride Anion Gap BUN Creatinine Phosphorus GGT AST ALT Alkaline Phosphatase Lactate Dehydrogenase C-Reactive Protein 9.6 H Triglycerides Urine Protein 100 A Urine Glucose (UA) 150 A Urine Occult Blood 0.2 A 09/23/19 05:55 RBC Hgb Hct Plt Count MPV Gran % Lymph % (Auto) Lymph # (Auto) ESR Chloride 90 L Anion Gap 19.0 H BUN 59 H Creatinine 8.9 H* Phosphorus 5.6 H GGT 7 L AST 50 H ALT Alkaline Phosphatase Lactate Dehydrogenase 272 H C-Reactive Protein Triglycerides 190 H Urine Protein Urine Glucose (UA) Urine Occult Blood Microbiology: Microbiology 09/22/19 21:45 Nose MRSA (PCR) - Final Assessment and Plan - Narrative A/P Narrative: A: 1. Staphylococcus aureus bacteremia: negative mecA gene - could be due to skin translocation into AVF. Although less likely, AV graft could have been seeded from past MSSA infection in summer 2018. - TTE neg, r/o any cardiac inv with ARASELI given past Hx of IE - MRSA nasal PCR neg on multiple occasions 2. Rt shoulder and neck pain: CT chest with views inv neck and right shoulder negative for any obvious infection [fluid collection, thrombosis, joint effusion] - continue to follow 3. Flu-like symptoms: r/o influenza Recommendations: - Continue IV Cefazolin (to be given after dialysis) as 2 gm on Sunday, 2 gm on Sunday and 3 gm on Sunday - Spoke with Dr Lerner about considering removal of left forearm AV graft as it could easily be seeded by Staph aureus in the bloodstream and lead to future relapses of Staph aureus infections. She will touch base with local vascular surgeon - agree with Resp viral panel and droplet precautions. Start TAMIFLU 30 mg after dialysis for 5 days (3 doses), first dose now. will stop it if Flu testing negative - repeat blood Cx around HD until negative x 48 hrs - will schedule a ARASELI as OP will follow Krishna Gary MD Infectious diseases
[2019-09-23] MEDS ORDERED: OSELTAMIVIR PHOSPHATE 30 MG CAPSULE PO ONE (16:00)
[2019-09-23] MEDS: ACETAMINOPHEN 325 MG TABLET PO PRN (17:06)
[2019-09-23] MEDS: MELATONIN 3 MG TABLET PO SCH (21:30)
[2019-09-23] MEDS: ASPIRIN 81 MG TAB.CHEW PO SCH (21:30)
[2019-09-23] MEDS: FAMOTIDINE 20 MG TABLET PO SCH (21:30)
[2019-09-23] MEDS: CLOPIDOGREL 75 MG TABLET PO SCH (21:31)
[2019-09-24] MEDS: 0.9 % SODIUM CHLORIDE 10 ML SYRINGE IV SCH ×3 (05:17→20:37)
[2019-09-24 06:49] LABS: Calcium 8.8 mg/dl (8.6-10.4); Carbon Dioxide 22 mmol/L (22-30); Glucose 89 mg/dL (70-105)
[2019-09-24] MEDS: BENZOCAINE/MENTHOL 1 LOZENGE PO PRN (07:04)
[2019-09-24] MEDS: GEMFIBROZIL 600 MG TABLET PO SCH (07:04)
--- NOTE | 2019-09-24 07:15 | Internal Med Progress Note ---
Medical - PN: Subj Patient information: Note initiated : 09/24/19 at 7:11 am Service Date, if different from initiated Date: [] Patient: Odilon Kruger 44 y/o M admitted on 09/22/19 for positive blood cultures. Chief Complaint: [] Interval history: Mr. Kruger is a 44 year old M Who presented to the ED for cold and flulike symptoms yesterday and had been having the symptoms for couple days. Had some nausea and did vomiting but felt that was from the phlegm he coughed up. He also has some diarrhea but his today with constipation is not too uncommon. Also fever chills. Work-up in the ED was essentially unremarkable except for possibly a left upper lobe lobe infiltrate that was suspected to be atelectasis versus other. Patient was given Levaquin and blood cultures were obtained. He was sent back in to the ED today because blood culture growing positive for gram-positive cocci. He does continue to have fever and chills. The mouth cough did become dry he otherwise was having some rhinorrhea and some sinus drainage. Cough the other day had some yellow phlegm to it. Now complains of some right neck shoulder pain which when he points to this area is more the supraclavicular region. He does have a lot of skin lesions he says he gets pimple-like spots on his arms and legs and back and he pops them pus comes out like a pimple. 09/23 Patient reports poor sleep last night. CT chest obtained today. Only complaint is some discomfort over the right superior aspect of his chest into the collarbone area. This discomfort seems to migrate as before it is over by the trapezius and now its anterior chest wall. Denies fever chills 09/24 Better sleep last night. No new complaints. Occasional cough, much better. Last fever yesterday evening. Review of Systems: denies headache/fever/chills/nausea/vomiting/abdominal pain/cough/dyspnea/diarrhea. Otherwise see above. - Constitutional Vitals: Vital Signs Temp Pulse Resp BP Pulse Ox 98.2 F 81 20 103/56 96 09/24/19 03:08 09/24/19 03:08 09/24/19 03:08 09/24/19 03:08 09/24/19 03:08 Period Temp Pulse Resp BP Sys/Cancino Pulse Ox Last 24 Hr 98.2 F-101.9 F 80-88 18-22 97-127/49-65 95-98 Intake and Output 09/23/19 09/24/19 09/24/19 21:59 05:59 13:59 Intake Total 800 120 Output Total 225 100 Balance 575 20 Weight 146.692 kg Intake & Output: Intake & Output 09/23/19 09/24/19 09/24/19 21:59 05:59 13:59 Intake Total 800 120 Output Total 225 100 Balance 575 20 Weight 146.692 kg Intake: Oral 800 120 Output: Void Amount 225 100 Other: Meal Lunch Percent of Meal Consumed 100% Feeding Ability Independent Urine Appearance Clear Urine Color Bright Yellow Urine Odor Normal Exam: General: Alert, Awake, No acute Distress, obese Eyes/N/T: EOMI, Head/Neck: neck supple, CV: RRR, No murmurs, normal s1/s2 Pulm: Clear b/l, no wheezing/rhonchi/rales Abd: soft, nontender, +BS x4 Ext: no clubbing/cyanosis/edema Neuro: Alert, no focal deficits, moves all extremities, Skin: warm/dry. many crusted over lesions, small annular - pt reports "pimple- like" that are pruritic and breaks them open as such - attributes to ESRD Medical - PN: Obj Da - Labs CBC & Chem 7: 09/23/19 05:55 09/24/19 05:30 Labs: Abnormal Lab Results 09/23/19 09/23/19 09/22/19 05:55 05:55 16:27 RBC 3.10 L Hgb 9.7 L Hct 27.6 L Plt Count 125 L MPV 10.7 H Gran % Lymph % (Auto) Lymph # (Auto) 1.05 L ESR Chloride 90 L Anion Gap 19.0 H BUN 59 H Creatinine 8.9 H* Phosphorus 5.6 H GGT 7 L AST 50 H ALT Alkaline Phosphatase Lactate Dehydrogenase 272 H C-Reactive Protein Triglycerides 190 H Urine Protein 100 A Urine Glucose (UA) 150 A Urine Occult Blood 0.2 A 09/22/19 09/22/19 09/22/19 11:48 11:48 11:48 RBC Hgb Hct Plt Count MPV Gran % Lymph % (Auto) Lymph # (Auto) ESR 86 H Chloride 90 L Anion Gap 18.0 H BUN 34 H Creatinine 5.6 H* Phosphorus GGT AST 50 H ALT 45 H Alkaline Phosphatase 119 H Lactate Dehydrogenase C-Reactive Protein 9.6 H 9.1 H Triglycerides Urine Protein Urine Glucose (UA) Urine Occult Blood 09/22/19 11:48 RBC 3.76 L Hgb 11.7 L Hct 33.2 L Plt Count MPV Gran % 83.3 H Lymph % (Auto) 10.6 L Lymph # (Auto) 0.68 L ESR Chloride Anion Gap BUN Creatinine Phosphorus GGT AST ALT Alkaline Phosphatase Lactate Dehydrogenase C-Reactive Protein Triglycerides Urine Protein Urine Glucose (UA) Urine Occult Blood Meds: Medications Acetaminophen (Tylenol) 650 mg PO Q6HP PRN PRN Reason: PAIN/FEVER > 101 Last Admin: 09/23/19 17:06 Dose: 650 mg Documented by: Albuterol/Ipratropium (Duoneb) 3 ml NEB Q4HP PRN PRN Reason: Shortness Of Breath Aspirin (Aspirin) 81 mg PO QHS [facility] Last Admin: 09/23/19 21:30 Dose: 81 mg Documented by: Calcium Acetate (Phoslo) 1,334 mg PO TIDCC [facility] Last Admin: 09/23/19 18:06 Dose: 1,334 mg Documented by: Calcium Acetate (Phoslo) 1,334 mg PO DAILYP PRN PRN Reason: SNACK Calcium Carbonate/Glycine (Tums) 500 mg PO QID [facility] Last Admin: 09/23/19 21:30 Dose: 500 mg Documented by: Cefazolin Sodium (Ancef) 2 gm IV MoWe@1800 [facility] Last Admin: 09/22/19 18:03 Dose: 2 gm Documented by: Cefazolin Sodium (Ancef) 3 gm IV Fr@1800 [facility] Clopidogrel Bisulfate (Plavix) 75 mg PO QHS [facility] Last Admin: 09/23/19 21:31 Dose: 75 mg Documented by: Docusate Sodium (Colace) 100 mg PO BID [facility] Last Admin: 09/23/19 21:31 Dose: 100 mg Documented by: Famotidine (Pepcid) 20 mg PO [facility] Last Admin: 09/23/19 21:30 Dose: 20 mg Documented by: Gemfibrozil (Lopid) [facility] Last Admin: 09/24/19 07:04 Dose: 600 mg Documented by: Heparin Sodium (Porcine) (Heparin) 5,000 unit SQ Q12 [facility] Last Admin: 09/23/19 21:31 Dose: 5,000 unit Documented by: Hydroxyzine HCl (Atarax) 25 mg PO QHS PRN PRN Reason: Itching Last Admin: 09/23/19 21:30 Dose: 25 mg Documented by: Melatonin (Melatonin 3mg Tablet) 3 mg PO HSP [facility] Last Admin: 09/23/19 21:30 Dose: 3 mg Documented by: Morphine Sulfate (Morphine) 1 - 4 mg IV Q3HP PRN; Protocol PRN Reason: Per Pain Protocol Last Admin: 09/24/19 06:43 Dose: 4 mg Documented by: Ondansetron HCl (Zofran) 4 mg IV Q4HP PRN PRN Reason: Nausea And Vomiting Polyethylene Glycol (Miralax) 17 gm PO DAILYP PRN PRN Reason: Constipation Last Admin: 09/23/19 09:05 Dose: 17 gm Documented by: Senna (Senokot) 2 tab PO DAILYP PRN PRN Reason: Constipation Sevelamer Carbonate (Renvela) 2,400 mg PO TIDCC [facility] Last Admin: 09/23/19 18:06 Dose: 2,400 mg Documented by: Sodium Chloride (Saline Flush) 10 ml IV Q8 [facility] Last Admin: 09/24/19 05:17 Dose: Not Given Documented by: Throat Lozenges (Cepacol) 1 lozenge PO PRN PRN PRN Reason: Sore Throat Last Admin: 09/24/19 07:04 Dose: 1 lozenge Documented by: Medical - PN: A/P - Time Spent With Patient Total time spent is greater than 50% in coordination of care (as documented) at patient's floor/unit and/or counseling patient: - Narrative A/P Narrative: A: *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
[2019-09-24 07:22] LABS: Blood Urea Nitrogen 81 mg/dl (6-20); Chloride 86 mmol/L (96-108); Glomerular Filtration Rate 5
[2019-09-24] MEDS: CALCIUM CARBONATE 500 MG TAB.CHEW PO SCH ×4 (08:59→20:36)
[2019-09-24] MEDS: SEVELAMER 800 MG TABLET PO SCH ×3 (08:59→16:38)
[2019-09-24] MEDS: CALCIUM ACETATE 667 MG CAPSULE PO SCH ×3 (08:59→16:38)
[2019-09-24] MEDS: DOCUSATE SODIUM 100 MG CAPSULE PO SCH ×2 (08:59→20:36)
[2019-09-24] MEDS: POLYETHYLENE GLYCOL 3350 17 GM PACKET PO PRN (10:43)
[2019-09-24] MEDS ORDERED: OSELTAMIVIR PHOSPHATE 30 MG CAPSULE PO SCH (16:00)
[2019-09-24] MEDS: HEPARIN 5,000 UNIT/ML VIAL SQ SCH ×2 (16:39→20:37)
--- NOTE | 2019-09-24 17:09 | Nephrology Progress Note ---
Subjective Patient information: Note initiated : 09/24/19 at 5:06 pm Service Date, if different from initiated Date: [] Patient: Odilon Kruger 44 y/o M admitted on 09/22/19 for positive blood cultures. Chief Complaint: [] Principal diagnosis: ESRD, bacteremia Interval history: continue to have right shoulder and neck pain Patient seen and evaluated on dialysis Objective - Vital Signs Vital signs: Vital Signs Temp Pulse Pulse Resp BP BP Pulse Ox 09/24/19 12:00 36.6 C 90 20 117/64 96 09/24/19 11:30 37.4 C H 09/24/19 11:28 37.4 C H 80 113/54 09/24/19 11:19 85 115/62 09/24/19 10:49 82 115/49 09/24/19 10:22 80 126/66 09/24/19 09:50 82 111/45 09/24/19 09:18 98 H 124/94 09/24/19 08:48 97 H 105/61 09/24/19 08:15 89 109/49 09/24/19 08:00 36.6 C 82 18 115/56 96 09/24/19 07:47 89 115/56 09/24/19 07:15 36.6 C 80 112/52 09/24/19 03:08 36.8 C 81 20 103/56 96 09/23/19 23:38 37.3 C H 86 20 114/65 95 09/23/19 18:25 38.4 C H 09/23/19 18:23 37.6 C H 87 22 97/49 97 Intake and Output 09/24/19 09/24/19 09/24/19 05:59 13:59 21:59 Intake Total 120 240 Output Total 100 4175 Balance 20 -3935 Intake: Oral 120 240 Output: Void Amount 100 175 Hemodialysis UF 4000 Other: Meal Breakfast Percent of Meal Consumed 75% Urine Appearance Clear Urine Color Bright Yellow Urine Odor Normal Intake & Output: Intake & Output 09/24/19 09/24/19 09/24/19 05:59 13:59 21:59 Intake Total 120 240 Output Total 100 4175 Balance 20 -3935 Intake: Oral 120 240 Output: Void Amount 100 175 Hemodialysis UF 4000 Other: Meal Breakfast Percent of Meal Consumed 75% Urine Appearance Clear Urine Color Bright Yellow Urine Odor Normal EENT: ATNC Cardiology: no murmurs, no rub, no edema, regular rate, regular rhythm - Lab 09/23/19 05:55 09/24/19 05:30 Most recent lab results Calcium 8.8 mg/dl (8.6-10.4) 09/24/19 05:30 Phosphorus 5.6 mg/dL (2.7-4.5) H 09/23/19 05:55 Magnesium 1.9 mg/dL (1.6-2.5) 09/23/19 05:55 Assessment and Plan (1) Bacteremia Status: Acute Priority: High (2) ESRD (end stage renal disease) on dialysis Status: Acute Priority: Medium - Narrative A/P Narrative: 44-year-old male admitted with MSSA bacteremia. He had MSSA bacteremia/ endocarditis in December 2018. He was hospitalized approximately 2 weeks in [place]. ESRD on HD MWF at [facility] Presumed secondary to NSAID use * HD 09/24/2018, 4. 25 hours. Na138, 3K, 2.5Ca, 35 bicarbonate bath, UF to dry weight. Patient seen and evaluated during hemodialysis. He tolerated the procedure well. He was normotensive. Net UF 4 L. Qb 400 Qd 800 *next HD 09/26/2019 *Daily standing weights Estimated dry weight 145.5 kg access LUE AVF Extremity ultrasound 09/22/2019 read as cellulitis versus hematoma at the site of the recent hemodialysis in the proximal left arm. Ultrasound 07/01/2019 radial artery to cephalic vein fistula forearm 50% stenosis of the cephalic vein. Ulnar artery to brachial vein graft 50% stenosis of the graft. He underwent angioplasty of the left upper extremity fistula 07/14/[address] Gary about his AV graft 09/23/2019. There is a concern that the bacteria formed/can form a biofilm and colonize the AV graft with subsequent intermittent bacteremia. I discussed with Hansel - our access lead from the HD unit 09/24/2019. He will get in touch with the local surgeon and discuss about AVG removal. The patient was updated with this plan. hemodynamics- volume Limited echocardiogram done 09/22/2019 reviewed. Plan for outpatient ARASELI. acid-base Serum bicarbonate 22, maintained with hemodialysis. bone-mineral He has hyperparathyroidism of renal origin. His PTH is over 1000 consistently. He is status post subtotal parathyroidectomy. I plan to repeat imaging studies and refer him to surgery once medically stable-he will need a parathyroid nuclear medicine scan Continue outpatient binders. Parsabiv currently on hold as the patient had paresthesia. hematologic Hemoglobin 9.7. Ferritin 835, T sat 39.4. Iron replete. Sepsis/bacteremia Management per primary team and ID-Access management as above. Echocardiogram was poor quality. Results reviewed. Antibiotics changed to cefazolin
[2019-09-24] MEDS: ceFAZolin 1 GM VIAL IV SCH (17:43)
[2019-09-24] MEDS: ASPIRIN 81 MG TAB.CHEW PO SCH (20:36)
[2019-09-24] MEDS: CLOPIDOGREL 75 MG TABLET PO SCH (20:36)
[2019-09-24] MEDS: MELATONIN 3 MG TABLET PO SCH (20:36)
--- NOTE | 2019-09-24 20:38 | Infectious Disease Prog Note ---
Subjective Patient information: Note initiated : 09/24/19 at 8:27 pm Service Date, if different from initiated Date: [] Patient: Odilon Kruger 44 y/o M admitted on 09/22/19 for positive blood cultures. Chief Complaint: [] Principal diagnosis: ESRD, bacteremia Interval history: Pt doing better. Still has some right shoulder and neck pain. No fever, chills, n/v, diarrhea. Pt was getting HD at the time of visit. Objective Objective Narrative: ao x 3, in nad no thrush chest cta s1 s2 normal bs ++ nttd - Vital Signs Vital signs: Vital Signs Temp Pulse Pulse Resp BP BP Pulse Ox 09/24/19 16:00 36.9 C 102 H 20 111/59 94 09/24/19 12:00 36.6 C 90 20 117/64 96 09/24/19 11:30 37.4 C H 09/24/19 11:28 37.4 C H 80 113/54 09/24/19 11:19 85 115/62 09/24/19 10:49 82 115/49 09/24/19 10:22 80 126/66 09/24/19 09:50 82 111/45 09/24/19 09:18 98 H 124/94 09/24/19 08:48 97 H 105/61 09/24/19 08:15 89 109/49 09/24/19 08:00 36.6 C 82 18 115/56 96 09/24/19 07:47 89 115/56 09/24/19 07:15 36.6 C 80 112/52 09/24/19 03:08 36.8 C 81 20 103/56 96 09/23/19 23:38 37.3 C H 86 20 114/65 95 Intake and Output 09/24/19 09/24/19 09/24/19 05:59 13:59 21:59 Intake Total 120 240 600 Output Total 100 4175 125 Balance 3935 475 Intake: Oral 120 240 600 Output: Void Amount 100 175 125 Hemodialysis UF 4000 Other: Meal Breakfast Percent of Meal Consumed 75% Urine Appearance Clear Clear Urine Color Bright Yellow Pale Urine Odor Normal Normal Intake & Output: Intake & Output 09/24/19 09/24/19 09/24/19 05:59 13:59 21:59 Intake Total 120 240 600 Output Total 100 4175 125 Balance 20 -6897 475 Intake: Oral 120 240 600 Output: Void Amount 100 175 125 Hemodialysis UF 4000 Other: Meal Breakfast Percent of Meal Consumed 75% Urine Appearance Clear Clear Urine Color Bright Yellow Pale Urine Odor Normal Normal - Lab 09/23/19 05:55 09/24/19 05:30 Most recent lab results Calcium 8.8 mg/dl (8.6-10.4) 09/24/19 05:30 Phosphorus 5.6 mg/dL (2.7-4.5) H 09/23/19 05:55 Magnesium 1.9 mg/dL (1.6-2.5) 09/23/19 05:55 Microbiology 09/23/19 07:02 Blood Blood Culture - Preliminary 09/23/19 09:39 Blood Blood Culture - Preliminary 09/23/19 14:28 Nasopharynx Respiratory Panel (PCR) - Final 09/23/19 14:28 Nasopharynx Respiratory Virus Panel (PCR) - Final 09/22/19 21:45 Nose MRSA (PCR) - Final Medications Active Medications: Acetaminophen (Tylenol) 650 mg PO Q6HP PRN PRN Reason: PAIN/FEVER > 101 Last Admin: 09/23/19 17:06 Dose: 650 mg Documented by: Admin: 09/22/19 23:57 Dose: 650 mg Documented by: Admin: 09/22/19 18:02 Dose: 650 mg Documented by: CHAVA Albuterol/Ipratropium (Duoneb) 3 ml NEB Q4HP PRN PRN Reason: Shortness Of Breath Aspirin (Aspirin) 81 mg PO QHS [facility] Last Admin: 09/23/19 21:30 Dose: 81 mg Documented by: Admin: 09/22/19 23:50 Dose: 81 mg Documented by: VEGA Calcium Acetate (Phoslo) 1,334 mg PO TIDCC [facility] Last Admin: 09/24/19 16:38 Dose: 1,334 mg Documented by: Admin: 09/24/19 12:42 Dose: 1,334 mg Documented by: Admin: 09/24/19 08:59 Dose: 1,334 mg Documented by: Admin: 09/23/19 18:06 Dose: 1,334 mg Documented by: Admin: 09/23/19 12:25 Dose: 1,334 mg Documented by: Admin: 09/23/19 09:06 Dose: 1,334 mg Documented by: Admin: 09/22/19 18:01 Dose: 1,334 mg Documented by: CHAVA Calcium Acetate (Phoslo) 1,334 mg PO DAILYP PRN PRN Reason: SNACK Calcium Carbonate/Glycine (Tums) 500 mg PO QID [facility] Admin: 09/24/19 16:40 Dose: 500 mg Documented by: Admin: 09/24/19 12:42 Dose: 500 mg Documented by: Admin: 09/24/19 08:59 Dose: 500 mg Documented by: Admin: 09/23/19 21:30 Dose: 500 mg Documented by: Admin: 09/23/19 16:58 Dose: 500 mg Documented by: Admin: 09/23/19 14:32 Dose: 500 mg Documented by: Admin: 09/23/19 09:05 Dose: 500 mg Documented by: Admin: 09/22/19 21:12 Dose: 500 mg Documented by: Admin: 09/22/19 18:02 Dose: 500 mg Documented by: CHAVA Cefazolin Sodium (Ancef) 2 gm IV MoWe@1800 [facility] Last Admin: 09/24/19 17:43 Dose: 2 gm Documented by: Admin: 09/22/19 18:03 Dose: 2 gm Documented by: CHAVA Cefazolin Sodium (Ancef) 3 gm IV Fr@1800 [facility] Clopidogrel Bisulfate (Plavix) 75 mg PO QHS [facility] Admin: 09/23/19 21:31 Dose: 75 mg Documented by: Admin: 09/22/19 23:50 Dose: 75 mg Documented by: VEGA Docusate Sodium (Colace) 100 mg PO BID [facility] Admin: 09/24/19 08:59 Dose: 100 mg Documented by: Admin: 09/23/19 21:31 Dose: 100 mg Documented by: Admin: 09/23/19 09:05 Dose: 100 mg Documented by: Admin: 09/22/19 21:12 Dose: 100 mg Documented by: VEGA Famotidine (Pepcid) [address] [facility] Last Admin: 09/23/19 21:30 Dose: 20 mg Documented by: Admin: 09/22/19 21:13 Dose: 20 mg Documented by: VEGA Gemfibrozil (Lopid) 600 mg PO [facility] Last Admin: 09/24/19 07:04 Dose: 600 mg Documented by: Admin: 09/23/19 08:26 Dose: 600 mg Documented by: MICHELLE Heparin Sodium (Porcine) (Heparin) 5,000 unit SQ Q12 [facility] Last Admin: 09/24/19 16:39 Dose: Not Given Documented by: MICHELLE Non-Admin Reason: Patient Refused Admin: 09/23/19 21:31 Dose: 5,000 unit Documented by: Admin: 09/23/19 09:05 Dose: 5,000 unit Documented by: Admin: 09/22/19 21:12 Dose: 5,000 unit Documented by: VEGA Hydroxyzine HCl (Atarax) 25 mg PO QHS PRN PRN Reason: Itching Last Admin: 09/23/19 21:30 Dose: 25 mg Documented by: Admin: 09/23/19 10:06 Dose: 25 mg Documented by: Admin: 09/22/19 21:12 Dose: 25 mg Documented by: VEGA Melatonin (Melatonin 3mg Tablet) 3 mg PO [facility] Last Admin: 09/23/19 21:30 Dose: 3 mg Documented by: UYEN Morphine Sulfate (Morphine) 1 - 4 mg IV Q3HP PRN; Protocol PRN Reason: Per Pain Protocol Last Admin: 09/24/19 16:38 Dose: 4 mg Documented by: Admin: 09/24/19 06:43 Dose: 4 mg Documented by: Admin: 09/23/19 21:31 Dose: 4 mg Documented by: Admin: 09/23/19 12:24 Dose: 4 mg Documented by: Admin: 09/23/19 06:03 Dose: 4 mg Documented by: Admin: 09/22/19 23:49 Dose: 4 mg Documented by: Admin: 09/22/19 19:15 Dose: 2 mg Documented by: VEGA Ondansetron HCl (Zofran) 4 mg IV Q4HP PRN PRN Reason: Nausea And Vomiting Polyethylene Glycol (Miralax) 17 gm PO DAILYP PRN PRN Reason: Constipation Last Admin: 09/24/19 10:43 Dose: 17 gm Documented by: Admin: 09/23/19 09:05 Dose: 17 gm Documented by: MICHELLE Senna (Senokot) 2 tab PO DAILYP PRN PRN Reason: Constipation Sevelamer Carbonate (Renvela) 2,400 mg PO [facility] Last Admin: 09/24/19 16:38 Dose: 2,400 mg Documented by: Admin: 09/24/19 12:42 Dose: 2,400 mg Documented by: Admin: 09/24/19 08:59 Dose: 2,400 mg Documented by: Admin: 09/23/19 18:06 Dose: 2,400 mg Documented by: Admin: 09/23/19 12:25 Dose: 2,400 mg Documented by: Admin: 09/23/19 09:06 Dose: 2,400 mg Documented by: Admin: 09/22/19 18:02 Dose: 2,400 mg Documented by: CHAVA Sodium Chloride (Saline Flush) 10 ml IV Q8 [facility] Last Admin: 09/24/19 16:40 Dose: 10 ml Documented by: Admin: 09/24/19 05:17 Dose: Not Given Documented by: UYEN Non-Admin Reason: Patient Asleep Admin: 09/23/19 21:40 Dose: 10 ml Documented by: Admin: 09/23/19 14:32 Dose: 10 ml Documented by: Admin: 09/23/19 05:03 Dose: 10 ml Documented by: Admin: 09/22/19 21:13 Dose: 10 ml Documented by: Admin: 09/22/19 16:56 Dose: Not Given Documented by: CHAVA Non-Admin Reason: Continuous IV Throat Lozenges (Cepacol) 1 lozenge PO PRN PRN PRN Reason: Sore Throat Last Admin: 09/24/19 07:04 Dose: 1 lozenge Documented by: Admin: 09/23/19 21:30 Dose: 1 lozenge Documented by: Admin: 09/23/19 10:01 Dose: 1 lozenge Documented by: MICHELLE Assessment and Plan - Narrative A/P Narrative: A: 1. 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 Although less likely, AV graft could have been seeded from past MSSA infection in summer 2018. 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 Rt shoulder and neck pain: CT chest with views inv neck and right shoulder negative for any obvious infection [fluid collection, thrombosis, joint effusion] - continue to follow 3. ESRD on HD every Sun, Sun, Sun: access is left forearm AVF Recommendations: - Continue IV Cefazolin (to be given after dialysis) as 2 gm on Sunday, 2 gm on Sunday and 3 gm on Sunday - await evaluation by local vascular surgeon regarding removal of left forearm AV graft as it could easily be seeded by Staph aureus in the bloodstream and lead to future relapses of Staph aureus infections. - repeat blood Cx each HD session until negative x 48 hrs - will schedule a ARASELI as OP will follow Krishna Gary MD Infectious diseases
[2019-09-24] MEDS: FAMOTIDINE 20 MG TABLET PO SCH (21:12)
[2019-09-25] MEDS: 0.9 % SODIUM CHLORIDE 10 ML SYRINGE IV SCH ×3 (05:52→20:14)
[2019-09-25] MEDS: GEMFIBROZIL 600 MG TABLET PO SCH (07:17)
[2019-09-25] MEDS: ACETAMINOPHEN 325 MG TABLET PO PRN ×2 (07:17→19:12)
[2019-09-25] MEDS: SEVELAMER 800 MG TABLET PO SCH ×3 (07:39→16:47)
[2019-09-25] MEDS: CALCIUM ACETATE 667 MG CAPSULE PO SCH ×3 (07:39→16:46)
[2019-09-25] MEDS: HEPARIN 5,000 UNIT/ML VIAL SQ SCH ×2 (08:11→20:13)
[2019-09-25] MEDS: DOCUSATE SODIUM 100 MG CAPSULE PO SCH ×2 (08:14→20:12)
[2019-09-25] MEDS: CALCIUM CARBONATE 500 MG TAB.CHEW PO SCH ×4 (08:14→20:11)
[2019-09-25 10:22] LABS: Basophils # (Auto) 0.03 K/mcL (0.00-0.30); Basophils % (Auto) 0.5 % (0.0-2.0); Eosinophils # (Auto) 0.46 K/mcL (0.00-0.70); Eosinophils % (Auto) 7.1 % (0.0-7.0); Granulocytes % (Auto) 67.3 % (38.0-78.0); Hematocrit 28.8 % (40.1-51.0); Hemoglobin 10.1 g/dL (13.7-17.5); Lymphocytes # (Auto) 1.17 K/mcL (1.50-4.80); Mean Cell Volume 89.2 fL (80.0-100.0); Mean Corpuscular HGB Conc 35.1 g/dL (31.0-36.0); Monocytes # (Auto) 0.46 K/mcL (0.10-0.90); Monocytes % (Auto) 7.1 % (1.0-12.0); Platelet Count 155 K/mcL (140-440); RBC 3.23 M/mcL (4.63-6.08); Red Cell Distribution Width 12.7 % (11.5-14.5); WBC 6.5 K/mcL (4.50-11.00)
[2019-09-25 10:41] LABS: Bilirubin,Direct < 0.2 mg/dL (0.0-0.3)
[2019-09-25 10:45] LABS: ALT/SGPT < 5 U/l (0-40); AST/SGOT 26 U/l (0-37); Albumin 3.9 gm/dL (3.2-5.2); Albumin/Globulin Ratio 1.1 (1.0-2.3); Alkaline Phosphatase 83 U/L (39-117); Bilirubin,Total 0.3 mg/dL (0.0-1.0); Blood Urea Nitrogen 50 mg/dl (6-20); Carbon Dioxide 25 mmol/L (22-30); Chloride 86 mmol/L (96-108); Globulin 3.4 gm/dL (2.2-3.7); Glomerular Filtration Rate 10; Glucose 108 mg/dL (70-105); Lactate Dehydrogenase 262 U/L (94-250); Phosphorous 5.1 mg/dL (2.7-4.5); Triglycerides 181 mg/dl (<150); Uric Acid 5.4 mg/dL (2.5-8.0)
--- NOTE | 2019-09-25 11:25 | Nephrology Progress Note ---
Subjective Patient information: Note initiated : 09/25/19 at 11:23 am Service Date, if different from initiated Date: [] Patient: Odilon Kruger 44 y/o M admitted on 09/22/19 for positive blood cultures. Chief Complaint: [] Principal diagnosis: ESRD, bacteremia Interval history: The patient is a 44-year-old gentleman with end-stage renal disease believed to be due to indomethacin and subsequent nephrotoxicity progressing to end-stage renal disease. He has a long complicated medical history in terms of his vascular access. Initially he had left upper arm AV fistula with transposition of the vessel so that he could be near the surface. This apparently became stenotic or clotted and a subsequent left AV fistula was placed in his left forearm. Apparently drainage from the forearm AV venous outflow vessel was impaired by the stenotic or thrombotic left AV fistula which contained his stent in the outflow vein is well of the left upper arm. In order to make the forearm AV fistula usable for dialysis a "jump graft" of PTFE graft material was used to bypass the stenotic and thrombosed vein in the forearm apparently connecting somewhere around the proximal cephalic vein before entering the axillary vein. 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 Currently he is receiving 2 g of cefazolin IV after dialysis on Sunday and Sunday and 3 g after Sunday's treatment. I have spoken with the dialysis director and we should be able to continue this antibiotic therapy as a outpatient for as long as necessary to redo his access. He does have what I think is a flow murmur but I would agree that he should probably have at least a ARASELI and perhaps a PET scan of his left arm to see if the graft itself is metabolically active suggesting an infection, but I must admit a negative PET scan would not stop me from surgically removing the graft. Initial blood cultures 2/2 (+) for MSSA On Ancef 2 gm qD and extra 1 gm post HD Outpatient Access History Also listed in History is a paraspinal abscess and earlier in the year as another episode of MSSA bacteremia / endocarditis with 4 positive blood cultures. Laboratory Tests 09/22/19 09/25/19 11:48 09:23 WBC 6.5 Hgb 10.1 L Hct 28.8 L Plt Count 155 ESR 86 H Laboratory Tests 09/22/19 09/25/19 11:48 09:23 Sodium 132 L Potassium 3.6 Chloride 86 L Carbon Dioxide 25 Anion Gap 21.0 H BUN 50 H Creatinine 6.4 H* Glucose 108 H Calcium 9.0 Phosphorus 5.1 H Magnesium 2.2 Alkaline Phosphatase 83 Lactate Dehydrogenase 262 H C-Reactive Protein 9.6 H Albumin 3.9 Selected Entries 09/23/19 23:38 09/25/19 04:26 09/25/19 07:42 Temperature 36.1 C Heart rate [Monitor Reading] 80 Respiratory Rate 16 Blood Pressure [Right Wrist] 114/65 106/59 99/48 Blood Pressure Mean [Right Wrist] 65 Pulse Oximetry (%) 98 Oxygen Delivery Method Room Air Pertinent ROS: No fever chills sweats or pain in his AV fistula arm Additional PMFSH (Level 3 Only): He does not recall ever having low back pain and being told he had a paraspinal abscess so this may be a presumptive diagnosis that proved never to be true but somehow made it to his chart. Objective - Vital Signs Vital signs: Vital Signs Temp Pulse Pulse Resp BP BP Pulse Ox 09/25/19 07:42 36.1 C 16 99/48 98 09/25/19 04:26 36.5 C 81 22 106/59 96 09/24/19 23:25 37.1 C 98 H 24 H 87/47 93 09/24/19 19:53 37.7 C H 107 H 24 H 106/64 96 09/24/19 16:00 36.9 C 102 H 20 111/59 94 09/24/19 12:00 36.6 C 90 20 117/64 96 09/24/19 11:30 37.4 C H 09/24/19 11:28 37.4 C H 80 113/54 Intake and Output 09/24/19 09/25/19 09/25/19 21:59 05:59 13:59 Intake Total 600 100 Output Total 125 200 Balance 475 -100 Intake: Oral 600 100 Output: Void Amount 125 200 Other: Urine Appearance Clear Clear Urine Color Pale Pale Urine Odor Normal Normal Weight 145.83 kg Intake & Output: Intake & Output 09/24/19 09/25/19 09/25/19 21:59 05:59 13:59 Intake Total 600 100 Output Total 125 200 Balance 475 -100 Weight 145.83 kg Intake: Oral 600 100 Output: Void Amount 125 200 Other: Urine Appearance Clear Clear Urine Color Pale Pale Urine Odor Normal Normal - General Appearance General appearance: well-developed (Nontoxic-appearing), well-nourished, appears started age EENT: ATNC, PERRL Neck: no JVD, no thyromegaly, no carotid bruit, supple Respiratory: no kyphosis, no scoliosis Cardiology: mid-systolic murmur (Grade 2 out of 6 systolic ejection murmur), no rub, no gallops Gastrointestinal: normoactive bowel sounds, no tenderness, no guarding Integumentary: no rash, warm and dry Neurologic: no focal deficit, alert and oriented x3, strength 5/5, CN 3-12 intact Musculoskeletal: no deformities (Left forearm AV fistula with bruit and thrill. Left upper arm AV fistula without bruit or thrill. Left AV shunt graft (lateral portion of left upper arm), has a bruit and thrill), no erythema, no cyanosis, no clubbing Psychiatric: mood/affect appropriate (Spoke with director of dialysis unit and the coordinator of online programs) - Lab 09/25/19 09:23 09/25/19 09:23 Most recent lab results Calcium 9.0 mg/dl (8.6-10.4) 09/25/19 09:23 Phosphorus 5.1 mg/dL (2.7-4.5) H 09/25/19 09:23 Magnesium 2.2 mg/dL (1.6-2.5) 09/25/19 09:23 Assessment and Plan (1) MSSA (methicillin susceptible Staphylococcus aureus) 1. Ancef post HD 2. Serial blood cultures 3. Outpatient ARASELI to determin length of therapy 4. At leats 2 weeks after removal of PTFE graft material 5. Co-ordinate care with ID, Vascular Surgeon and outpatient dialysis Status: Acute Priority: High (2) AV fistula infection 1. As outlines above 2. Highly likely to be AVG matierial from jump graft is source of bacteremia. 3. Not sure if a PET scan would help since a neg result would not do much to change may plans to remove the graft material Status: Acute Priority: High Qualifiers: Encounter type: initial encounter Qualified Code(s): T82.7XXA - Infection and inflammatory reaction due to other cardiac and vascular devices, implants and grafts, initial encounter (3) End stage renal failure on dialysis 1. HD MWF 2. Will need temp access when AVG is removed. Status: Chronic Priority: Medium Comment: ESRD due to indometacin 2010. access left arm fistula. - Narrative A/P Narrative: Can be discharge tp receive IV ABx post HD when stable and appropriate as determined by ID. Dialysis orders have been written for
--- NOTE | 2019-09-25 12:40 | Infectious Disease Prog Note ---
Subjective Patient information: Note initiated : 09/25/19 at 12:38 pm Service Date, if different from initiated Date: [] Patient: Odilon Kruger 44 y/o M admitted on 09/22/19 for positive blood cultures. Chief Complaint: [] Principal diagnosis: ESRD, bacteremia Interval history: Pt feeling better. Mentions that his right shoulder and neck pain is better. Denies any fever, chills, n/v, diarrhea, pain or redness at the AV graft site. Objective Objective Narrative: ao x 3, in nad no thrush no cervical lymphadenopathy or palpable swelling chest ctab s1 s2 normal, no m/r/g bs ++ nttd +ve palpatory thrill over left forearm AVF, no pain or redness. - Vital Signs Vital signs: Vital Signs Temp Pulse Resp BP Pulse Ox 09/25/19 07:42 36.1 C 16 99/48 98 09/25/19 04:26 36.5 C 81 22 106/59 96 09/24/19 23:25 37.1 C 98 H 24 H 87/47 93 09/24/19 19:53 37.7 C H 107 H 24 H 106/64 96 09/24/19 16:00 36.9 C 102 H 20 111/59 94 Intake and Output 09/24/19 09/25/19 09/25/19 21:59 05:59 13:59 Intake Total 600 100 Output Total 125 200 Balance 475 -100 Intake: Oral 600 100 Output: Void Amount 125 200 Other: Urine Appearance Clear Clear Urine Color Pale Pale Urine Odor Normal Normal Weight 145.83 kg Intake & Output: Intake & Output 09/24/19 09/25/19 09/25/19 21:59 05:59 13:59 Intake Total 600 100 Output Total 125 200 Balance 475 -100 Weight 145.83 kg Intake: Oral 600 100 Output: Void Amount 125 200 Other: Urine Appearance Clear Clear Urine Color Pale Pale Urine Odor Normal Normal - Lab 09/25/19 09:23 09/25/19 09:23 Most recent lab results Calcium 9.0 mg/dl (8.6-10.4) 09/25/19 09:23 Phosphorus 5.1 mg/dL (2.7-4.5) H 09/25/19 09:23 Magnesium 2.2 mg/dL (1.6-2.5) 09/25/19 09:23 Microbiology 09/23/19 07:02 Blood Blood Culture - Preliminary 09/23/19 09:39 Blood Blood Culture - Preliminary 09/23/19 14:28 Nasopharynx Respiratory Panel (PCR) - Final 09/23/19 14:28 Nasopharynx Respiratory Virus Panel (PCR) - Final 09/22/19 21:45 Nose MRSA (PCR) - Final Medications Active Medications: Acetaminophen (Tylenol) 650 mg PO Q6HP PRN PRN Reason: PAIN/FEVER > 101 Last Admin: 09/25/19 07:17 Dose: 650 mg Documented by: Admin: 09/23/19 17:06 Dose: 650 mg Documented by: Admin: 09/22/19 23:57 Dose: 650 mg Documented by: Admin: 09/22/19 18:02 Dose: 650 mg Documented by: CHAVA Albuterol/Ipratropium (Duoneb) 3 ml NEB Q4HP PRN PRN Reason: Shortness Of Breath Aspirin (Aspirin) 81 mg PO QHS [facility] Last Admin: 09/24/19 20:36 Dose: 81 mg Documented by: Admin: 09/23/19 21:30 Dose: 81 mg Documented by: Admin: 09/22/19 23:50 Dose: 81 mg Documented by: VEGA Calcium Acetate (Phoslo) 1,334 mg PO TIDCC [facility] Admin: 09/25/19 12:09 Dose: 1,334 mg Documented by: Admin: 09/25/19 07:39 Dose: 1,334 mg Documented by: Admin: 09/24/19 16:38 Dose: 1,334 mg Documented by: Admin: 09/24/19 12:42 Dose: 1,334 mg Documented by: Admin: 09/24/19 08:59 Dose: 1,334 mg Documented by: Admin: 09/23/19 18:06 Dose: 1,334 mg Documented by: Admin: 09/23/19 12:25 Dose: 1,334 mg Documented by: Admin: 09/23/19 09:06 Dose: 1,334 mg Documented by: Admin: 09/22/19 18:01 Dose: 1,334 mg Documented by: CHAVA Calcium Acetate (Phoslo) 1,334 mg PO DAILYP PRN PRN Reason: SNACK Calcium Carbonate/Glycine (Tums) 500 mg PO QID [facility] Admin: 09/25/19 08:14 Dose: 500 mg Documented by: Admin: 09/24/19 20:36 Dose: 500 mg Documented by: Admin: 09/24/19 16:40 Dose: 500 mg Documented by: Admin: 09/24/19 12:42 Dose: 500 mg Documented by: Admin: 09/24/19 08:59 Dose: 500 mg Documented by: Admin: 09/23/19 21:30 Dose: 500 mg Documented by: Admin: 09/23/19 16:58 Dose: 500 mg Documented by: Admin: 09/23/19 14:32 Dose: 500 mg Documented by: Admin: 09/23/19 09:05 Dose: 500 mg Documented by: Admin: 09/22/19 21:12 Dose: 500 mg Documented by: Admin: 09/22/19 18:02 Dose: 500 mg Documented by: CHAVA Cefazolin Sodium (Ancef) 2 gm IV MoWe@1800 [facility] Admin: 09/24/19 17:43 Dose: 2 gm Documented by: Admin: 09/22/19 18:03 Dose: 2 gm Documented by: CHAVA Cefazolin Sodium (Ancef) 3 gm IV Fr@1800 [facility] Clopidogrel Bisulfate (Plavix) 75 mg PO QHS [facility] Admin: 09/24/19 20:36 Dose: 75 mg Documented by: Admin: 09/23/19 21:31 Dose: 75 mg Documented by: Admin: 09/22/19 23:50 Dose: 75 mg Documented by: VEGA Docusate Sodium (Colace) 100 mg PO BID [facility] Admin: 09/25/19 08:14 Dose: 100 mg Documented by: Admin: 09/24/19 20:36 Dose: 100 mg Documented by: Admin: 09/24/19 08:59 Dose: 100 mg Documented by: Admin: 09/23/19 21:31 Dose: 100 mg Documented by: Admin: 09/23/19 09:05 Dose: 100 mg Documented by: Admin: 09/22/19 21:12 Dose: 100 mg Documented by: VEGA Famotidine (Pepcid) 20 mg PO HS [facility] Last Admin: 09/24/19 21:12 Dose: 20 mg Documented by: Admin: 09/23/19 21:30 Dose: 20 mg Documented by: Admin: 09/22/19 21:13 Dose: 20 mg Documented by: VEGA [facility] Admin: 09/25/19 07:17 Dose: 600 mg Documented by: Admin: 09/24/19 07:04 Dose: 600 mg Documented by: Admin: 09/23/19 08:26 Dose: 600 mg Documented by: MICHELLE Heparin Sodium (Porcine) (Heparin) 5,000 unit SQ Q12 [facility] Last Admin: 09/25/19 08:11 Dose: Not Given Documented by: MANISH Non-Admin Reason: Patient Refused Admin: 09/24/19 20:37 Dose: Not Given Documented by: UYEN Non-Demetris Reason: Patient Refused Admin: 09/24/19 16:39 Dose: Not Given Documented by: MICHELLE Non-Admin Reason: Patient Refused Admin: 09/23/19 21:31 Dose: 5,000 unit Documented by: Admin: 09/23/19 09:05 Dose: 5,000 unit Documented by: Admin: 09/22/19 21:12 Dose: 5,000 unit Documented by: VEGA Hydroxyzine HCl (Atarax) 25 mg PO QHS PRN PRN Reason: Itching Last Admin: 09/23/19 21:30 Dose: 25 mg Documented by: Admin: 09/23/19 10:06 Dose: 25 mg Documented by: Admin: 09/22/19 21:12 Dose: 25 mg Documented by: VEGA Melatonin (Melatonin 3mg Tablet) 3 mg PO HSP [facility] Last Admin: 09/24/19 20:36 Dose: 3 mg Documented by: Admin: 09/23/19 21:30 Dose: 3 mg Documented by: UYEN Morphine Sulfate (Morphine) 1 - 4 mg IV Q3HP PRN; Protocol PRN Reason: Per Pain Protocol Last Admin: 09/24/19 21:12 Dose: 4 mg Documented by: Admin: 09/24/19 16:38 Dose: 4 mg Documented by: Admin: 09/24/19 06:43 Dose: 4 mg Documented by: Admin: 09/23/19 21:31 Dose: 4 mg Documented by: Admin: 09/23/19 12:24 Dose: 4 mg Documented by: Admin: 09/23/19 06:03 Dose: 4 mg Documented by: Admin: 09/22/19 23:49 Dose: 4 mg Documented by: Admin: 09/22/19 19:15 Dose: 2 mg Documented by: VEGA Ondansetron HCl (Zofran) 4 mg IV Q4HP PRN PRN Reason: Nausea And Vomiting Polyethylene Glycol (Miralax) 17 gm PO DAILYP PRN PRN Reason: Constipation Last Admin: 09/24/19 10:43 Dose: 17 gm Documented by: Admin: 09/23/19 09:05 Dose: 17 gm Documented by: MICHELLE Senna (Senokot) 2 tab PO DAILYP PRN PRN Reason: Constipation Sevelamer Carbonate (Renvela) 2,400 mg PO TIDCC [facility] Last Admin: 09/25/19 12:08 Dose: 2,400 mg Documented by: Admin: 09/25/19 07:39 Dose: 2,400 mg Documented by: Admin: 09/24/19 16:38 Dose: 2,400 mg Documented by: Admin: 09/24/19 12:42 Dose: 2,400 mg Documented by: Admin: 09/24/19 08:59 Dose: 2,400 mg Documented by: Admin: 09/23/19 18:06 Dose: 2,400 mg Documented by: Admin: 09/23/19 12:25 Dose: 2,400 mg Documented by: Admin: 09/23/19 09:06 Dose: 2,400 mg Documented by: Admin: 09/22/19 18:02 Dose: 2,400 mg Documented by: CHAVA Sodium Chloride (Saline Flush) 10 ml IV Q8 [facility] Last Admin: 09/25/19 05:52 Dose: Not Given Documented by: UYEN Non-Admin Reason: Patient Asleep Admin: 09/24/19 20:37 Dose: 10 ml Documented by: Admin: 09/24/19 16:40 Dose: 10 ml Documented by: Admin: 09/24/19 05:17 Dose: Not Given Documented by: UYEN Non-Admin Reason: Patient Asleep Admin: 09/23/19 21:40 Dose: 10 ml Documented by: Admin: 09/23/19 14:32 Dose: 10 ml Documented by: Admin: 09/23/19 05:03 Dose: 10 ml Documented by: Admin: 09/22/19 21:13 Dose: 10 ml Documented by: Admin: 09/22/19 16:56 Dose: Not Given Documented by: CHAVA Non-Admin Reason: Continuous IV Throat Lozenges (Cepacol) 1 lozenge PO PRN PRN PRN Reason: Sore Throat Last Admin: 09/24/19 07:04 Dose: 1 lozenge Documented by: Admin: 09/23/19 21:30 Dose: 1 lozenge Documented by: Admin: 09/23/19 10:01 Dose: 1 lozenge Documented by: MICHELLE Assessment and Plan - Narrative A/P Narrative: A: 1. 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 Although less likely, AV graft could have been seeded from past MSSA infection in summer 2018. 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 Rt shoulder and neck pain: better - CT chest with views inv neck and right shoulder negative for any obvious infection [fluid collection, thrombosis, joint effusion] 3. ESRD on HD every Mon, Wed, Fri: access is left forearm AVF Recommendations: - Continue IV Cefazolin (to be given after dialysis) as 2 gm on Sunday, 2 gm on Sunday and 3 gm on Sunday - awaiting evaluation by local vascular surgeon regarding removal of left forearm AV graft as it could easily be seeded by Staph aureus in the bloodstream and lead to future relapses of Staph aureus infections. - will schedule a ARASELI as OP - anticipate at least 4 weeks of IV Cefazolin therapy. will follow Krishna Gary MD Infectious diseases
[2019-09-25] MEDS: CLOPIDOGREL 75 MG TABLET PO SCH (20:11)
[2019-09-25] MEDS: FAMOTIDINE 20 MG TABLET PO SCH (20:12)
[2019-09-25] MEDS: MELATONIN 3 MG TABLET PO SCH (20:12)
[2019-09-25] MEDS: ASPIRIN 81 MG TAB.CHEW PO SCH (20:12)
--- NOTE | 2019-09-25 22:45 | Internal Med Progress Note ---
Medical - PN: Subj Patient information: Note initiated : 09/25/19 at 10:44 pm Service Date, if different from initiated Date: [] Patient: Odilon Kruger 44 y/o M admitted on 09/22/19 for positive blood cultures. Chief Complaint: [] Interval history: Mr. Kruger is a 44 year old M Who presented to the ED for cold and flulike symptoms yesterday and had been having the symptoms for couple days. Had some nausea and did vomiting but felt that was from the phlegm he coughed up. He also has some diarrhea but his today with constipation is not too uncommon. Also fever chills. Work-up in the ED was essentially unremarkable except for possibly a left upper lobe lobe infiltrate that was suspected to be atelectasis versus other. Patient was given Levaquin and blood cultures were obtained. He was sent back in to the ED today because blood culture growing positive for gram-positive cocci. He does continue to have fever and chills. The mouth cough did become dry he otherwise was having some rhinorrhea and some sinus drainage. Cough the other day had some yellow phlegm to it. Now complains of some right neck shoulder pain which when he points to this area is more the supraclavicular region. He does have a lot of skin lesions he says he gets pimple-like spots on his arms and legs and back and he pops them pus comes out like a pimple. 09/23 Patient reports poor sleep last night. CT chest obtained today. Only complaint is some discomfort over the right superior aspect of his chest into the collarbone area. This discomfort seems to migrate as before it is over by the trapezius and now its anterior chest wall. Denies fever chills 09/24 Better sleep last night. No new complaints. Occasional cough, much better. Last fever yesterday evening. 09/25 Patient's shoulder pain is better CT scan was unremarkable for any infectious pathology. Discussed with infectious disease specialist and plan is to get the AV graft out. Continue IV cefazolin Pertinent ROS: Respiratory-no shortness of breath no cough Cardiovascular-no chest pain no palpitation no syncope Abdominal-intermittent diarrhea no new symptoms no nausea no vomiting Musculoskeletal-shoulder pain and right-sided chest pain better Urinary-no dysuria Neuro-no focal neuro deficit no anxiety no depression - Constitutional Vitals: Vital Signs Temp Pulse Resp BP Pulse Ox 99.3 F H 88 16 95/56 97 09/25/19 19:57 09/25/19 19:05 09/25/19 19:05 09/25/19 19:05 09/25/19 19:05 Period Temp Pulse Resp BP Sys/Cancino Pulse Ox Last 24 Hr 97 F-99.5 F 81-98 16-24 87-108/45-59 93-98 Intake and Output 09/25/19 09/25/19 09/26/19 13:59 21:59 05:59 Intake Total 480 240 Output Total 155 Balance 480 85 Weight 325 lb 4.8 oz Patient Weight 09/26/19 05:59 Weight 325 lb 4.8 oz Intake & Output: Intake & Output 09/25/19 09/25/19 09/26/19 13:59 21:59 05:59 Intake Total 480 240 Output Total 155 Balance 480 85 Weight 325 lb 4.8 oz Intake: Oral 480 240 Output: Void Amount 155 Other: Meal Lunch Percent of Meal Consumed 100% Feeding Ability Independent Urine Appearance Clear Urine Color Bright Yellow - Head Head exam: Present: atraumatic, normal inspection, normocephalic - ENT ENT exam: Present: mucous membranes moist, normal exam, normal external ear exam, normal oropharynx - Neck Neck exam: Present: normal inspection. Absent: lymphadenopathy, meningismus - Respiratory Respiratory exam: Present: normal respiratory exam. Absent: accessory muscle use, chest wall tenderness, decreased breath sounds - Cardiovascular Cardiovascular exam: Present: normal rate and rhythm. Absent: bradycardia, diastolic murmur, systolic murmur - GI/Abdominal GI/Abdominal exam: Present: normal bowel sounds, soft, distended - Neurological Exam Neurological exam: Present: alert, oriented X3, reflexes normal. Absent: motor sensory deficit - Psychiatric Psychiatric exam: Present: agitated. Absent: anxious, depressed Medical - PN: Obj Da - Labs CBC & Chem 7: 09/25/19 09:23 09/25/19 09:23 Labs: Abnormal Lab Results 09/25/19 09/25/19 09/24/19 09:23 09:23 05:30 RBC 3.23 L Hgb 10.1 L Hct 28.8 L Plt Count MPV 11.0 H Eos % (Auto) 7.1 H Lymph # (Auto) 1.17 L Sodium 132 L 129 L Chloride 86 L 86 L Anion Gap 21.0 H 21.0 H BUN 50 H 81 H Creatinine 6.4 H* 11.2 H* Glucose 108 H Phosphorus 5.1 H GGT 7 L AST Lactate Dehydrogenase 262 H Triglycerides 181 H 09/23/19 09/23/19 05:55 05:55 RBC 3.10 L Hgb 9.7 L Hct 27.6 L Plt Count 125 L MPV 10.7 H Eos % (Auto) Lymph # (Auto) 1.05 L Sodium Chloride 90 L Anion Gap 19.0 H BUN 59 H Creatinine 8.9 H* Glucose Phosphorus 5.6 H GGT 7 L AST 50 H Lactate Dehydrogenase 272 H Triglycerides 190 H Meds: Medications Acetaminophen (Tylenol) 650 mg PO Q6HP PRN PRN Reason: PAIN/FEVER > 101 Last Admin: 09/25/19 19:12 Dose: 650 mg Documented by: Albuterol/Ipratropium (Duoneb) 3 ml NEB Q4HP PRN PRN Reason: Shortness Of Breath [facility]irin ([facility]in) [facility] Last Admin: 09/25/19 20:12 Dose: 81 mg Documented by: Calcium Acetate (Phoslo) 1,334 mg PO TIDCC [facility] Last Admin: 09/25/19 16:46 Dose: 1,334 mg Documented by: Calcium Acetate (Phoslo) 1,334 mg PO DAILYP PRN PRN Reason: SNACK Calcium Carbonate/Glycine (Tums) 500 mg PO QID [facility] Last Admin: 09/25/19 20:11 Dose: 500 mg Documented by: Cefazolin Sodium (Ancef) 2 gm IV MoWe@1800 [facility] Last Admin: 09/24/19 17:43 Dose: 2 gm Documented by: Cefazolin Sodium (Ancef) 3 gm IV Fr@1800 [facility] Clopidogrel Bisulfate (Plavix) [facility] Last Admin: 09/25/19 20:11 Dose: 75 mg Documented by: Docusate Sodium (Colace) 100 mg PO BID [facility] Last Admin: 09/25/19 20:12 Dose: 100 mg Documented by: Famotidine (Pepcid) 20 mg PO [facility] Last Admin: 09/25/19 20:12 Dose: 20 mg Documented by: Gemfibrozil (Lopid) [facility] Last Admin: 09/25/19 07:17 Dose: 600 mg Documented by: Heparin Sodium (Porcine) (Heparin) 5,000 unit SQ Q12 [facility] Last Admin: 09/25/19 20:13 Dose: Not Given Documented by: Hydroxyzine HCl (Atarax) 25 mg PO QHS PRN PRN Reason: Itching Last Admin: 09/23/19 21:30 Dose: 25 mg Documented by: Melatonin (Melatonin 3mg Tablet) 3 mg PO HSP [facility] Last Admin: 09/25/19 20:12 Dose: 3 mg Documented by: Morphine Sulfate (Morphine) 1 - 4 mg IV Q3HP PRN; Protocol PRN Reason: Per Pain Protocol Last Admin: 09/25/19 20:12 Dose: 4 mg Documented by: Ondansetron HCl (Zofran) 4 mg IV Q4HP PRN PRN Reason: Nausea And Vomiting Polyethylene Glycol (Miralax) 17 gm PO DAILYP PRN PRN Reason: Constipation Last Admin: 09/24/19 10:43 Dose: 17 gm Documented by: Senna (Senokot) 2 tab PO DAILYP PRN PRN Reason: Constipation Sevelamer Carbonate (Renvela) 2,400 mg PO TIDCC [facility] Last Admin: 09/25/19 16:47 Dose: 2,400 mg Documented by: Sodium Chloride (Saline Flush) 10 ml IV Q8 [facility] Last Admin: 09/25/19 20:14 Dose: 10 ml Documented by: Throat Lozenges (Cepacol) 1 lozenge PO PRN PRN PRN Reason: Sore Throat Last Admin: 09/24/19 07:04 Dose: 1 lozenge Documented by: Medical - PN: A/P - Time Spent With Patient Total time spent is greater than 50% in coordination of care (as documented) at patient's floor/unit and/or counseling patient: - Narrative A/P Narrative: MSSA bacteremia Recurrent bacteremia and endocarditis- Potential source AV graft Infectious disease following the patient Plan is to get a ARASELI outpatient and his TTE was negative MRSA nasal PCR negative Continuing cefazolin Infectious disease specialist discussed with the nephrology and vascular surgery and plan is to get the AV graft out and pending evaluation End-stage renal disease on hemodialysis Nephrology is following the patient Obesity Monitoring oxygenation GERD Continue home medications Hyperlipidemia Continue statin Intermittent diarrhea Chronic for him and also due to antibiotics Right upper chest and shoulder pain CT scan was negative Probably musculoskeletal DVT prophylaxis-on Lovenox Medical - PN: Qual - VTE Deep Vein Thrombosis/Pulmonary Embolism Present on Admission: No
[2019-09-26] MEDS: 0.9 % SODIUM CHLORIDE 10 ML SYRINGE IV SCH ×3 (05:26→20:38)
[2019-09-26] MEDS: HEPARIN 5,000 UNIT/ML VIAL SQ SCH ×2 (08:00→20:36)
[2019-09-26] MEDS: DOCUSATE SODIUM 100 MG CAPSULE PO SCH ×2 (08:42→20:35)
[2019-09-26] MEDS: CALCIUM ACETATE 667 MG CAPSULE PO SCH ×3 (08:42→16:58)
[2019-09-26] MEDS: SEVELAMER 800 MG TABLET PO SCH ×3 (08:42→16:58)
[2019-09-26] MEDS: CALCIUM CARBONATE 500 MG TAB.CHEW PO SCH ×3 (08:42→20:35)
[2019-09-26] MEDS: GEMFIBROZIL 600 MG TABLET PO SCH (08:43)
--- NOTE | 2019-09-26 12:41 | Nephrology Progress Note ---
Subjective Patient information: Note initiated : 09/26/19 at 12:36 pm Service Date, if different from initiated Date: [] Patient: Odilon Kruger 44 y/o M admitted on 09/22/19 for positive blood cultures. Chief Complaint: [] Principal diagnosis: ESRD, bacteremia Interval history: Seen and evaluated on dialysis this morning. Tolerated 4-hour hemodialysis without difficulty. 3K bath and UF of 4 L. Afterwards he will receive 3 g of cefazolin and his next dialysis is scheduled for Sunday I suspect as an outpatient where he will receive cefazolin postdialysis. Trying to arrange outpatient transesophageal echocardiogram. We will also need referral to Dr. Galeano for evaluation and management of presumptive piece of [place] graft that is the source of his bacteremia Right shoulder pain is improved CT to look for any fluid collections that could be an infectious emboli and/or abscess Repeat blood cultures have remained negative We will repeat his infectious biomarkers but his fever has abated, he never had a white count, the sedimentation rate is always mildly elevated with end-stage renal disease so I guess I dressed the absence of fever and CRP levels. Selected Entries 09/25/19 04:26 09/25/19 07:42 Temperature 36.1 C Heart rate [Monitor Reading] 80 Respiratory Rate 16 Blood Pressure [Right Wrist] 106/59 99/48 Blood Pressure Mean [Right Wrist] 65 Pulse Oximetry (%) 98 Oxygen Delivery Method Room Air Laboratory Tests 09/22/19 09/22/19 09/22/19 11:48 11:48 11:48 ESR 86 H C-Reactive Protein 9.1 H 9.6 H Pertinent ROS: No fever chills rigors or sweats Additional PMFSH (Level 3 Only): N/A Objective - Vital Signs Vital signs: Vital Signs Temp Pulse Pulse Resp BP BP Pulse Ox 09/26/19 08:03 37.1 C 82 117/44 09/26/19 07:45 36.7 C 80 20 107/88 99 09/26/19 07:43 80 114/57 09/26/19 07:13 87 106/55 09/26/19 07:04 80 110/43 09/26/19 06:45 86 82/22 09/26/19 06:30 80 107/88 09/26/19 06:18 80 88/33 01/10/20 05:45 80 139/53 09/26/19 05:13 80 141/66 09/26/19 04:46 70 132/50 09/26/19 04:13 36.3 C 70 126/41 09/26/19 03:15 36.7 C 73 20 140/65 100 09/26/19 00:35 36.7 C 72 16 112/58 95 09/25/19 19:57 37.4 C H 09/25/19 19:12 37.5 C H 09/25/19 19:05 37.5 C H 88 16 95/56 97 09/25/19 16:00 37.1 C 16 103/45 98 Intake and Output 09/25/19 09/26/19 09/26/19 21:59 05:59 13:59 Intake Total 240 400 120 Output Total 173 276 9014 Balance 85 250 -3880 Intake: Oral 240 400 120 Output: Void Amount 155 150 Hemodialysis UF 4000 Other: Meal Breakfast Percent of Meal Consumed 100% Feeding Ability Independent Urine Appearance Clear Clear Urine Color Bright Yellow Bright Yellow Weight 147.554 kg Intake & Output: Intake & Output 09/25/19 09/26/19 09/26/19 21:59 05:59 13:59 Intake Total 240 400 120 Output Total 360 483 4081 Balance 85 250 -3880 Weight 147.554 kg Intake: Oral 240 400 120 Output: Void Amount 155 150 Hemodialysis UF 4000 Other: Meal Breakfast Percent of Meal Consumed 100% Feeding Ability Independent Urine Appearance Clear Clear Urine Color Bright Yellow Bright Yellow - General Appearance General appearance: well-developed, well-nourished, appears started age (Nontoxic-appearing) EENT: ATNC, PERRL, vision intact Neck: no JVD, no thyromegaly, no carotid bruit, supple Respiratory: no kyphosis Cardiology: mid-systolic murmur (2 out of 6 systolic ejection murmur), regular rate, regular rhythm, normal S1, normal S2 Gastrointestinal: normoactive bowel sounds, no tenderness, no guarding, no organomegaly, no masses Integumentary: no rash, warm and dry Neurologic: no focal deficit, no asterixis, alert and oriented x3 Musculoskeletal: no deformities, no erythema (Left upper arm transposed AV fistula silent, left forearm AV fistula with good bruit and thrill, left lateral jump graft is not warm or tender and has a audible bruit) Psychiatric: mood/affect appropriate - Lab 09/25/19 09:23 09/25/19 09:23 Most recent lab results Calcium 9.0 mg/dl (8.6-10.4) 09/25/19 09:23 Phosphorus 5.1 mg/dL (2.7-4.5) H 09/25/19 09:23 Magnesium 2.2 mg/dL (1.6-2.5) 09/25/19 09:23 Assessment and Plan (1) MSSA (methicillin susceptible Staphylococcus aureus) 1. Ancef post HD 2. Serial blood cultures 3. Outpatient ARASELI to determin length of therapy 4. At least 2 weeks after removal of PTFE graft material 5. Co-ordinate care with ID, Vascular Surgeon and outpatient dialysis Status: Acute Priority: High (2) AV fistula infection 1. As outlined above 2. Highly likely to be AVG matierial from jump graft is source of bacteremia... No aneurysmal formation but suspicion biofilm and MSSA endovascular infection 3. Not sure if a PET scan would help since a neg result would not do much to jaxson sears plans to remove the graft material Status: Acute Priority: High Qualifiers: Encounter type: initial encounter Qualified Code(s): T82.7XXA - Infection and inflammatory reaction due to other cardiac and vascular devices, implants and grafts, initial encounter (3) End stage renal failure on dialysis 1. HD MWF 2. Will need temp access when AVG is removed. Status: Chronic Priority: Medium Comment: ESRD due to indometacin 2010. access left arm fistula. (4) Tertiary hyperparathyroidism 1. Continue phosphate binders with meals 2. Intact PTH level 3. He has had a parathyroidectomy in the past 4. 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 Aranesp as needed weekly, due to acute blood loss of hospitalization he will probably need twice is much is his usual on patient dose Status: Chronic Priority: Medium - Narrative A/P Narrative: Can be discharge tp receive IV ABx post HD when stable and appropriate as determined by ID. Will probably wait till his blood cultures drawn on the have been negative for at least 48 hours to confirm that the Keflex therapy is working Dialysis performed early a.m. 09/26/2019
--- NOTE | 2019-09-26 13:22 | Internal Med Progress Note ---
Medical - PN: Subj Patient information: Note initiated : 09/26/19 at 1:21 pm Service Date, if different from initiated Date: [] Patient: Odilon Kruger a 44 y/o M admitted on 09/22/19 for positive blood cultures. Chief Complaint: [] Interval history: Mr. Kruger is a 44 year old M Who presented to the ED for cold and flulike symptoms yesterday and had been having the symptoms for couple days. Had some nausea and did vomiting but felt that was from the phlegm he coughed up. He also has some diarrhea but his today with constipation is not too uncommon. Also fever chills. Work-up in the ED was essentially unremarkable except for possibly a left upper lobe lobe infiltrate that was suspected to be atelectasis versus other. Patient was given Levaquin and blood cultures were obtained. He was sent back in to the ED today because blood culture growing positive for gram-positive cocci. He does continue to have fever and chills. The mouth cough did become dry he otherwise was having some rhinorrhea and some sinus drainage. Cough the other day had some yellow phlegm to it. Now complains of some right neck shoulder pain which when he points to this area is more the supraclavicular region. He does have a lot of skin lesions he says he gets pimple-like spots on his arms and legs and back and he pops them pus comes out like a pimple. 09/23 Patient reports poor sleep last night. CT chest obtained today. Only complaint is some discomfort over the right superior aspect of his chest into the collarbone area. This discomfort seems to migrate as before it is over by the trapezius and now its anterior chest wall. Denies fever chills 09/24 Better sleep last night. No new complaints. Occasional cough, much better. Last fever yesterday evening. 09/25 Patient's shoulder pain is better CT scan was unremarkable for any infectious pathology. Discussed with infectious disease specialist and plan is to get the AV graft out. Continue IV cefazolin 09/26 Patient continued to complaining of right shoulder pain and difficulty in raising his arms Ordered a CT office thoracic cervical, thoracic and lumbar spine with contrast to look for any evidence of source of bacteremia Discussed with nephrology and nephrology dialysis software asset manager working coordinating with the vascular surgeon to take out the graft 2 sets of blood culture ordered today pending Blood culture from the seventh no growth so far Pertinent ROS: Respiratory-no shortness of breath no cough Cardiovascular-no chest pain no palpitation no syncope Abdominal-intermittent diarrhea no new symptoms no nausea no vomiting Musculoskeletal-continue to complaining of right shoulder pain and difficulty in raising his arms Urinary-no dysuria Neuro-no focal neuro deficit no anxiety no depression - Constitutional Vitals: Vital Signs Temp Pulse Resp BP Pulse Ox 98.7 F 82 20 117/44 99 09/26/19 08:03 09/26/19 08:03 09/26/19 07:45 09/26/19 08:03 09/26/19 07:45 Period Temp Pulse Resp BP Sys/[place] Pulse Ox Last 24 Hr 97.4 F-99.5 F 70-88 16-20 82-141/22-88 95-100 Intake and Output 09/25/19 09/26/19 09/26/19 21:59 05:59 13:59 Intake Total 240 400 120 Output Total 575 201 8481 Balance 85 250 -3880 Weight 325 lb 4.8 oz Intake & Output: Intake & Output 09/25/19 09/26/19 09/26/19 21:59 05:59 13:59 Intake Total 240 400 120 Output Total 563 395 9194 Balance 85 250 -3880 Weight 325 lb 4.8 oz Intake: Oral 240 400 120 Output: Void Amount 155 150 Hemodialysis UF 4000 Other: Meal Breakfast Percent of Meal Consumed 100% Feeding Ability Independent Urine Appearance Clear Clear Urine Color Bright Yellow Bright Yellow General appearance: mild distress, obese - Head Head exam: Present: atraumatic, normal inspection, normocephalic - Eye Eye exam: Present: normal appearance. Absent: nystagmus, periorbital swelling, periorbital tenderness - ENT ENT exam: Present: normal exam, normal external ear exam, normal oropharynx - Neck Neck exam: Present: normal inspection. Absent: lymphadenopathy, meningismus - Respiratory Respiratory exam: Present: normal respiratory exam, chest wall tenderness, decreased breath sounds. Absent: accessory muscle use - Cardiovascular Cardiovascular exam: Absent: bradycardia, systolic murmur - GI/Abdominal GI/Abdominal exam: Present: soft, diminished bowel sounds, distended - Neurological Exam Neurological exam: Present: alert, oriented X3, reflexes normal. Absent: motor sensory deficit - Psychiatric Psychiatric exam: Present: anxious. Absent: agitated, depressed Medical - PN: Obj Da - Labs CBC & Chem 7: 09/25/19 09:23 09/25/19 09:23 Labs: Abnormal Lab Results 09/25/19 09/25/19 09/24/19 09:23 09:23 05:30 RBC 3.23 L Hgb 10.1 L Hct 28.8 L MPV 11.0 H Eos % (Auto) 7.1 H Lymph # (Auto) 1.17 L Sodium 132 L 129 L Chloride 86 L 86 L Anion Gap 21.0 H 21.0 H BUN 50 H 81 H Creatinine 6.4 H* 11.2 H* Glucose 108 H Phosphorus 5.1 H GGT 7 L Lactate Dehydrogenase 262 H Triglycerides 181 H Meds: Medications Acetaminophen (Tylenol) 650 mg PO Q6HP PRN PRN Reason: PAIN/FEVER > 101 Last Admin: 09/25/19 19:12 Dose: 650 mg Documented by: Albuterol/Ipratropium (Duoneb) 3 ml NEB Q4HP PRN PRN Reason: Shortness Of Breath Aspirin (Aspirin) 81 mg PO QHS [facility] Last Admin: 09/25/19 20:12 Dose: 81 mg Documented by: Calcium Acetate (Phoslo) 1,334 mg PO TIDCC [facility] Last Admin: 09/26/19 12:13 Dose: 1,334 mg Documented by: Calcium Acetate (Phoslo) 1,334 mg PO DAILYP PRN PRN Reason: SNACK Calcium Carbonate/Glycine (Tums) 500 mg PO QID [facility] Last Admin: 09/26/19 08:42 Dose: 500 mg Documented by: Cefazolin Sodium (Ancef) 2 gm IV MoWe@1800 [facility] Last Admin: 09/24/19 17:43 Dose: 2 gm Documented by: Cefazolin Sodium (Ancef) 3 gm IV Fr@1800 [facility] Clopidogrel Bisulfate (Plavix) 75 mg PO QHS [facility] Last Admin: 09/25/19 20:11 Dose: 75 mg Documented by: Docusate Sodium (Colace) 100 mg PO BID [facility] Last Admin: 09/26/19 08:42 Dose: 100 mg Documented by: Famotidine (Pepcid) 20 mg PO [facility] Last Admin: 09/25/19 20:12 Dose: 20 mg Documented by: [facility] (Lopid) [facility] Last Admin: 09/26/19 08:43 Dose: 600 mg Documented by: Heparin Sodium (Porcine) (Heparin) 5,000 unit SQ Q12 [facility] Last Admin: 09/26/19 08:00 Dose: Not Given Documented by: Hydroxyzine HCl (Atarax) 25 mg PO QHS PRN PRN Reason: Itching Last Admin: 09/23/19 21:30 Dose: 25 mg Documented by: Melatonin (Melatonin 3mg Tablet) 3 mg PO HSP [facility] Last Admin: 09/25/19 20:12 Dose: 3 mg Documented by: Morphine Sulfate (Morphine) 1 - 4 mg IV Q3HP PRN; Protocol PRN Reason: Per Pain Protocol Last Admin: 09/25/19 20:12 Dose: 4 mg Documented by: Ondansetron HCl (Zofran) 4 mg IV Q4HP PRN PRN Reason: Nausea And Vomiting Polyethylene Glycol (Miralax) 17 gm PO DAILYP PRN PRN Reason: Constipation Last Admin: 09/24/19 10:43 Dose: 17 gm Documented by: Senna (Senokot) 2 tab PO DAILYP PRN PRN Reason: Constipation Sevelamer Carbonate (Renvela) 2,400 mg PO TIDCC [facility] Last Admin: 09/26/19 12:13 Dose: 2,400 mg Documented by: Sodium Chloride (Saline Flush) 10 ml IV Q8 [facility] Last Admin: 09/26/19 05:26 Dose: 10 ml Documented by: Throat Lozenges (Cepacol) 1 lozenge PO PRN PRN PRN Reason: Sore Throat Last Admin: 09/24/19 07:04 Dose: 1 lozenge Documented by: Medical - PN: A/P - Time Spent With Patient Total time spent is greater than 50% in coordination of care (as documented) at patient's floor/unit and/or counseling patient: - Narrative A/P Narrative: MSSA bacteremia Recurrent bacteremia and endocarditis- Potential source AV graft Infectious disease following the patient Plan is to get a ARASELI outpatient and his TTE was negative MRSA nasal PCR negative Continuing cefazolin Infectious disease specialist discussed with the nephrology and vascular surgery and plan is to get the AV graft out and pending confirmation Blood culture from the seventh is so far no growth Blood culture ordered today-09/26 2019 Patient was complaining of worsening right arm pain and difficulty in raising his arms and back pain and ordered CT of the spine with contrast to look for any source of bacteremia since he had recurrent bacteremia End-stage renal disease on hemodialysis Nephrology is following the patient Obesity Monitoring oxygenation GERD Continue home medications Hyperlipidemia Continue statin Intermittent diarrhea Chronic for him and also due to antibiotics Right upper chest and shoulder pain CT scan was negative Probably musculoskeletal DVT prophylaxis-change to heparin Medical - PN: Qual - VTE Deep Vein Thrombosis/Pulmonary Embolism Present on Admission: No
[2019-09-26] MEDS ORDERED: IOPAMIDOL 100 ML BOTTLE IV ONE (14:46)
--- NOTE | 2019-09-26 15:20 | Cat Scan Report ---
History: Bacteremia, generalized back pain, positive blood cultures TECHNIQUE: Following injection of 80 cc of Isovue-370, the patient was imaged from the skull base through the symphysis pubis at 2.5 mm intervals. Sagittal and coronal reformats were created along with axial images using bone detail of the spine. Radiation exposure was limited using dose reduction technology. FINDINGS: Neck: Within the posterior fossa, Left of midline there is a masslike structure adjacent to a large cisterna magnum. It measures approximately 2.2 x 4.3 cm in size. This is more likely an asymmetric occipital lobe rather than a neoplasm. Asymmetry of the posterior brain was seen on the prior head CT done on 02/23/17. Since we did not include the entire occipital lobe on the current neck CT, I cannot determine whether not there has been a change. The facial structures and salivary glands appear normal without evidence of mass or inflammation. There are a few small benign reactive lymph nodes in both sides of the neck. No abnormality is seen in the larynx. There are surgical clips adjacent to the right lobe of the thyroid. The right lobe is smaller than the left lobe and has been partially resected. There is an ill-defined masslike thickening in the isthmus, which measures approximately 1.8 cm. There is a clip located anterior to the isthmus. This nodular thickening is a chronic stable finding with no change since prior chest CT done in 2014. There is mild arthritis at the articulation of the odontoid and anterior ring of C1. The cervical spine is otherwise normal with no evidence of osteomyelitis or degenerative disc disease. There is no spur formation or stenosis. Incidentally noted is important tissue with several absent teeth both sides of the face. CHEST: Contiguous with the pleural surface in the superior segment of lingula there is a small nodular infiltrate. Measures 1.5 x 1.7 cm. There is a small central air bronchogram. There is mild pleural parenchymal scarring in both lung bases. A 2 mm noncalcified nodule is present this is probably a granuloma. A tiny right-sided pleural effusion is present. There is no free fluid in the left side and no pericardial effusion. There are no abnormally enlarged lymph nodes in the mediastinum or louie. Heart size is normal. There is a large amount calcified plaque in the left anterior descending coronary artery. There is abnormal soft tissue thickening at the right thoracic inlet, at the articulation of the right clavicle and the adjacent first rib. There is no erosion of bone. The soft tissue thickening measures up to 11 mm in thickness. There is no evidence of an abscess or gas in this region. The remainder of the clavicle is normal. I see no joint effusion in the shoulder. Abdomen and pelvis: The liver and spleen are normal. The gallbladder is been removed. The pancreas and adrenals are normal. Patient is severe atrophy of both kidneys. The patient is a chronic renal dialysis patient and is scheduled for dialysis following the CT scan. There are several cysts in both kidneys. No mass or abscess are present within the abdomen or pelvis. There is no evidence of diverticulitis. Urinary bladder is decompressed. Prostate is relatively small. Bone windows demonstrate moderate disc space narrowing and degeneration at T11-12. There are medium-sized spurs along the posterior border of the disc and small Schmorl's node along the inferior endplate of T11. There is no evidence of discitis or osteomyelitis level. The remainder the thoracic and lumbar vertebra and disc spaces are normal, without evidence of infection or neoplasm. Mild spur formation is seen at multiple levels in the mid and lower thoracic spine. There is no ankylosis of the thoracic spine. Patient does have mature ankylosis across both SI joints. There is no associated erosion or spur formation. There is mild osteoarthritis in the hips, right greater than left. This joint space narrowing of the right and formation of multiple sclerosis subchondral cysts in the right acetabular roof. IMPRESSION: Nonspecific soft tissue inflammation at the right thoracic inlet where the clavicle articulates with the manubrium. There is no evidence of osteomyelitis. Small nodular infiltrate in the left upper lobe. This is probably infection. Mild degenerative changes in the thoracolumbar junction and no evidence of osteomyelitis in the spine Asymmetry in the posterior fossa of the brain. This could be congenital variant and less likely a mass in the region of the occipital lobe. If the Patient is symptomatic a head CT or MRI would be recommended for further evaluation. Interpreted and Authenticated by: Christopher Hadley 09/26/19
[2019-09-26] MEDS: ceFAZolin 1 GM VIAL IV SCH (17:05)
[2019-09-26] MEDS ORDERED: ceFAZolin 1 GM VIAL IV SCH (18:00)
[2019-09-26] MEDS: CLOPIDOGREL 75 MG TABLET PO SCH (20:35)
[2019-09-26] MEDS: ASPIRIN 81 MG TAB.CHEW PO SCH (20:35)
[2019-09-26] MEDS: ACETAMINOPHEN 325 MG TABLET PO PRN (20:35)
[2019-09-26] MEDS: FAMOTIDINE 20 MG TABLET PO SCH (20:35)
[2019-09-26] MEDS: MELATONIN 3 MG TABLET PO SCH (20:35)
--- NOTE | 2019-09-26 22:08 | Infectious Disease Prog Note ---
Subjective Patient information: Note initiated : 09/26/19 at 9:58 pm Service Date, if different from initiated Date: [] Patient: Oidlon Kruger 44 y/o M admitted on 09/22/19 for positive blood cultures. Chief Complaint: [] Principal diagnosis: ESRD, bacteremia Interval history: Pt feels better. Mentions that his right neck and shoulder pain has gottent better and is tolerable. Denies any fever, chills, n/v, diarrhea, back pain. Discussed with him plans about discussion regarding transfer to [facility] in [place] for AV graft removal by Dr Mitchell (vascular surgeon) and manage vascular access for HD. Shared his ARASELI could also be done there. Discussed plans about minimum of 4 weeks of IV Cefazolin from 09/23/2019. Pt voiced understanding Objective Objective Narrative: ao x 3, in nad no thrush chest cta with decreased BS at bases s1 s2 normal, no m/r/g bs ++ nttd, mild discomfort in left upper quadrant Rt shoulder and neck: non tedner, no swelling or fluctuance, no redness or warmth - Vital Signs Vital signs: Vital Signs Temp Pulse Pulse Resp BP BP Pulse Ox 09/26/19 12:00 36.7 C 75 113/81 99 09/26/19 08:03 37.1 C 82 117/44 09/26/19 07:45 36.7 C 80 20 107/88 99 09/26/19 07:43 80 114/57 09/26/19 07:13 87 106/55 09/26/19 07:04 80 110/43 09/26/19 06:45 86 82/22 09/26/19 06:30 80 107/88 09/26/19 06:18 80 88/33 09/26/19 05:45 80 139/53 09/26/19 05:13 80 141/66 09/26/19 04:46 70 132/50 09/26/19 04:13 36.3 C 70 126/41 09/26/19 03:15 36.7 C 73 20 140/65 100 09/26/19 00:35 36.7 C 72 16 112/58 95 Intake and Output 09/26/19 09/26/19 09/26/19 05:59 13:59 21:59 Intake Total 400 120 360 Output Total 150 4000 Balance 250 -3880 360 Intake: Oral 400 120 360 Output: Void Amount 150 Hemodialysis UF 4000 Other: Meal Breakfast Dinner Percent of Meal Consumed 100% 100% Feeding Ability Independent Independent Urine Appearance Clear Urine Color Bright Yellow Weight 144.832 kg Patient Weight 09/27/19 05:59 Weight 144.832 kg Intake & Output: Intake & Output 09/26/19 09/26/19 09/26/19 05:59 13:59 21:59 Intake Total 400 120 360 Output Total 150 4000 Balance 250 -3880 360 Weight 144.832 kg Intake: Oral 400 120 360 Output: Void Amount 150 Hemodialysis UF 4000 Other: Meal Breakfast Dinner Percent of Meal Consumed 100% 100% Feeding Ability Independent Independent Urine Appearance Clear Urine Color Bright Yellow - Lab 09/25/19 09:23 09/25/19 09:23 Most recent lab results Calcium 9.0 mg/dl (8.6-10.4) 09/25/19 09:23 Phosphorus 5.1 mg/dL (2.7-4.5) H 09/25/19 09:23 Magnesium 2.2 mg/dL (1.6-2.5) 09/25/19 09:23 Microbiology 09/23/19 07:02 Blood Blood Culture - Preliminary 09/23/19 09:39 Blood Blood Culture - Preliminary 09/23/19 14:28 Nasopharynx Respiratory Panel (PCR) - Final 09/23/19 14:28 Nasopharynx Respiratory Virus Panel (PCR) - Final 09/22/19 21:45 Nose MRSA (PCR) - Final Medications Active Medications: Acetaminophen (Tylenol) 650 mg PO Q6HP PRN PRN Reason: PAIN/FEVER > 101 Last Admin: 09/26/19 20:35 Dose: 650 mg Documented by: Admin: 09/25/19 19:12 Dose: 650 mg Documented by: Admin: 09/25/19 07:17 Dose: 650 mg Documented by: Admin: 09/23/19 17:06 Dose: 650 mg Documented by: Admin: 09/22/19 23:57 Dose: 650 mg Documented by: Admin: 09/22/19 18:02 Dose: 650 mg Documented by: CHAVA Albuterol/Ipratropium (Duoneb) 3 ml NEB Q4HP PRN PRN Reason: Shortness Of Breath Aspirin (Aspirin) 81 mg PO QHS [facility] Admin: 09/26/19 20:35 Dose: 81 mg Documented by: Admin: 09/25/19 20:12 Dose: 81 mg Documented by: Admin: 09/24/19 20:36 Dose: 81 mg Documented by: Admin: 09/23/19 21:30 Dose: 81 mg Documented by: Admin: 09/22/19 23:50 Dose: 81 mg Documented by: VEGA Calcium Acetate (Phoslo) 1,334 mg PO TIDCC [facility] Admin: 09/26/19 16:58 Dose: 1,334 mg Documented by: Admin: 09/26/19 12:13 Dose: 1,334 mg Documented by: Admin: 09/26/19 08:42 Dose: 1,334 mg Documented by: Admin: 09/25/19 16:46 Dose: 1,334 mg Documented by: Admin: 09/25/19 12:09 Dose: 1,334 mg Documented by: Admin: 09/25/19 07:39 Dose: 1,334 mg Documented by: Admin: 09/24/19 16:38 Dose: 1,334 mg Documented by: Admin: 09/24/19 12:42 Dose: 1,334 mg Documented by: Admin: 09/24/19 08:59 Dose: 1,334 mg Documented by: Admin: 09/23/19 18:06 Dose: 1,334 mg Documented by: Admin: 09/23/19 12:25 Dose: 1,334 mg Documented by: Admin: 09/23/19 09:06 Dose: 1,334 mg Documented by: Admin: 09/22/19 18:01 Dose: 1,334 mg Documented by: CHAVA Calcium Acetate (Phoslo) 1,334 mg PO DAILYP PRN PRN Reason: SNACK Calcium Carbonate/Glycine (Tums) 500 mg PO QID [facility] Admin: 09/26/19 20:35 Dose: 500 mg Documented by: Admin: 09/26/19 16:57 Dose: 500 mg Documented by: Admin: 09/26/19 16:57 Dose: 500 mg Documented by: Admin: 09/26/19 08:42 Dose: 500 mg Documented by: Admin: 09/25/19 20:11 Dose: 500 mg Documented by: Admin: 09/25/19 16:46 Dose: 500 mg Documented by: Admin: 09/25/19 13:15 Dose: 500 mg Documented by: Admin: 09/25/19 08:14 Dose: 500 mg Documented by: Admin: 09/24/19 20:36 Dose: 500 mg Documented by: Admin: 09/24/19 16:40 Dose: 500 mg Documented by: Admin: 09/24/19 12:42 Dose: 500 mg Documented by: Admin: 09/24/19 08:59 Dose: 500 mg Documented by: Admin: 09/23/19 21:30 Dose: 500 mg Documented by: Admin: 09/23/19 16:58 Dose: 500 mg Documented by: Admin: 09/23/19 14:32 Dose: 500 mg Documented by: Admin: 09/23/19 09:05 Dose: 500 mg Documented by: Admin: 09/22/19 21:12 Dose: 500 mg Documented by: Admin: 09/22/19 18:02 Dose: 500 mg Documented by: CHAVA Cefazolin Sodium (Ancef) 2 gm IV MoWe@1800 [facility] Last Admin: 09/24/19 17:43 Dose: 2 gm Documented by: Admin: 09/22/19 18:03 Dose: 2 gm Documented by: CHAVA Cefazolin Sodium (Ancef) 3 gm IV Fr@1800 [facility] Last Admin: 09/26/19 17:14 Dose: 3 gm Documented by: MANISH Clopidogrel Bisulfate (Plavix) 75 mg PO QHS [facility] Last Admin: 09/26/19 20:35 Dose: 75 mg Documented by: Admin: 09/25/19 20:11 Dose: 75 mg Documented by: Admin: 09/24/19 20:36 Dose: 75 mg Documented by: Admin: 09/23/19 21:31 Dose: 75 mg Documented by: Admin: 09/22/19 23:50 Dose: 75 mg Documented by: VEGA Docusate Sodium (Colace) 100 mg PO BID [facility] Admin: 09/26/19 20:35 Dose: 100 mg Documented by: Admin: 09/26/19 08:42 Dose: 100 mg Documented by: Admin: 09/25/19 20:12 Dose: 100 mg Documented by: Admin: 09/25/19 08:14 Dose: 100 mg Documented by: Admin: 09/24/19 20:36 Dose: 100 mg Documented by: Admin: 09/24/19 08:59 Dose: 100 mg Documented by: Admin: 09/23/19 21:31 Dose: 100 mg Documented by: Admin: 09/23/19 09:05 Dose: 100 mg Documented by: Admin: 09/22/19 21:12 Dose: 100 mg Documented by: VEGA Famotidine (Pepcid) 20 mg PO HS [facility] Last Admin: 09/26/19 20:35 Dose: 20 mg Documented by: Admin: 09/25/19 20:12 Dose: 20 mg Documented by: Admin: 09/24/19 21:12 Dose: 20 mg Documented by: Admin: 09/23/19 21:30 Dose: 20 mg Documented by: Admin: 09/22/19 21:13 Dose: 20 mg Documented by: VEGA Gemfibrozil (Lopid) 600 mg PO QAMAC [facility] Admin: 09/26/19 08:43 Dose: 600 mg Documented by: Admin: 09/25/19 07:17 Dose: 600 mg Documented by: Admin: 09/24/19 07:04 Dose: 600 mg Documented by: Admin: 09/23/19 08:26 Dose: 600 mg Documented by: MICHELLE Heparin Sodium (Porcine) (Heparin) 5,000 unit SQ Q12 [facility] Admin: 09/26/19 20:36 Dose: Not Given Documented by: CRISTY Non-Admin Reason: Patient Request Admin: 09/26/19 08:00 Dose: Not Given Documented by: MANISH Non-Admin Reason: Patient Refused Admin: 09/25/19 20:13 Dose: Not Given Documented by: CRISTY Non-Admin Reason: Patient Request Admin: 09/25/19 08:11 Dose: Not Given Documented by: MANISH Non-Admin Reason: Patient Refused Admin: 09/24/19 20:37 Dose: Not Given Documented by: UYEN Non-Admin Reason: Patient Refused Admin: 09/24/19 16:39 Dose: Not Given Documented by: MICHELLE Non-Admin Reason: Patient Refused Admin: 09/23/19 21:31 Dose: 5,000 unit Documented by: Admin: 09/23/19 09:05 Dose: 5,000 unit Documented by: Admin: 09/22/19 21:12 Dose: 5,000 unit Documented by: VEGA Hydroxyzine HCl (Atarax) 25 mg PO QHS PRN PRN Reason: Itching Last Admin: 09/23/19 21:30 Dose: 25 mg Documented by: Admin: 09/23/19 10:06 Dose: 25 mg Documented by: Admin: 09/22/19 21:12 Dose: 25 mg Documented by: VEGA Melatonin (Melatonin 3mg Tablet) 3 mg PO HSP [facility] Last Admin: 09/26/19 20:35 Dose: 3 mg Documented by: Admin: 09/25/19 20:12 Dose: 3 mg Documented by: Admin: 09/24/19 20:36 Dose: 3 mg Documented by: Admin: 09/23/19 21:30 Dose: 3 mg Documented by: UYEN Morphine Sulfate (Morphine) 1 - 4 mg IV Q3HP PRN; Protocol PRN Reason: Per Pain Protocol Last Admin: 09/26/19 17:48 Dose: 4 mg Documented by: Admin: 09/25/19 20:12 Dose: 4 mg Documented by: Admin: 09/24/19 21:12 Dose: 4 mg Documented by: Admin: 09/24/19 16:38 Dose: 4 mg Documented by: Admin: 09/24/19 06:43 Dose: 4 mg Documented by: Admin: 09/23/19 21:31 Dose: 4 mg Documented by: Admin: 09/23/19 12:24 Dose: 4 mg Documented by: Admin: 09/23/19 06:03 Dose: 4 mg Documented by: Admin: 09/22/19 23:49 Dose: 4 mg Documented by: Admin: 09/22/19 19:15 Dose: 2 mg Documented by: VEGA Ondansetron HCl (Zofran) 4 mg IV Q4HP PRN PRN Reason: Nausea And Vomiting Polyethylene Glycol (Miralax) 17 gm PO DAILYP PRN PRN Reason: Constipation Last Admin: 09/24/19 10:43 Dose: 17 gm Documented by: Admin: 09/23/19 09:05 Dose: 17 gm Documented by: MICHELLE Senna (Senokot) 2 tab PO DAILYP PRN PRN Reason: Constipation Sevelamer Carbonate (Renvela) 2,400 mg PO TIDCC [facility] Last Admin: 09/26/19 16:58 Dose: 2,400 mg Documented by: Admin: 09/26/19 12:13 Dose: 2,400 mg Documented by: Admin: 09/26/19 08:42 Dose: 2,400 mg Documented by: Admin: 09/25/19 16:47 Dose: 2,400 mg Documented by: Admin: 09/25/19 12:08 Dose: 2,400 mg Documented by: Admin: 09/25/19 07:39 Dose: 2,400 mg Documented by: Admin: 09/24/19 16:38 Dose: 2,400 mg Documented by: Admin: 09/24/19 12:42 Dose: 2,400 mg Documented by: Admin: 09/24/19 08:59 Dose: 2,400 mg Documented by: Admin: 09/23/19 18:06 Dose: 2,400 mg Documented by: Admin: 09/23/19 12:25 Dose: 2,400 mg Documented by: Admin: 09/23/19 09:06 Dose: 2,400 mg Documented by: Admin: 09/22/19 18:02 Dose: 2,400 mg Documented by: CHAVA Sodium Chloride (Saline Flush) 10 ml IV Q8 [facility] Last Admin: 09/26/19 20:38 Dose: 10 ml Documented by: Admin: 09/26/19 16:57 Dose: 10 ml Documented by: Admin: 09/26/19 05:26 Dose: 10 ml Documented by: Admin: 09/25/19 20:14 Dose: 10 ml Documented by: Admin: 09/25/19 16:47 Dose: 10 ml Documented by: Admin: 09/25/19 05:52 Dose: Not Given Documented by: UYEN Non-Admin Reason: Patient Asleep Admin: 09/24/19 20:37 Dose: 10 ml Documented by: Admin: 09/24/19 16:40 Dose: 10 ml Documented by: Admin: 09/24/19 05:17 Dose: Not Given Documented by: UYEN Non-Admin Reason: Patient Asleep Admin: 09/23/19 21:40 Dose: 10 ml Documented by: Admin: 09/23/19 14:32 Dose: 10 ml Documented by: Admin: 09/23/19 05:03 Dose: 10 ml Documented by: Admin: 09/22/19 21:13 Dose: 10 ml Documented by: Admin: 09/22/19 16:56 Dose: Not Given Documented by: CHAVA Non-Admin Reason: Continuous IV Throat Lozenges (Cepacol) 1 lozenge PO PRN PRN PRN Reason: Sore Throat Last Admin: 09/24/19 07:04 Dose: 1 lozenge Documented by: Admin: 09/23/19 21:30 Dose: 1 lozenge Documented by: Admin: 09/23/19 10:01 Dose: 1 lozenge Documented by: MICHELLE Assessment and Plan - Narrative A/P Narrative: A: 1. 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 Although less likely, AV graft could have been seeded from past MSSA infection in summer 2018. 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 Rt shoulder and neck pain: better - CT chest with views inv neck and right shoulder negative for any obvious infection [fluid collection, thrombosis, joint effusion] 3. ESRD on HD every Sun, Sun, Sun: access is left forearm AVF Recommendations: - Continue IV Cefazolin (to be given after dialysis) as 2 gm on Sunday, 2 gm on Sunday and 3 gm on Sunday, day 4 - Spoke with Dr Carmona with plans to possibly transfer pt tomorrow to [facility] for AV graft removal by Dr. Mitchell (vascular surgeon). Pt would also be able to get his ARASELI there - will plan for at least 4 weeks of IV Cefazolin therapy, with minimum of 2 weeks from time of AV graft removal. Duration >4 weeks to be based on whether or not pt's ARASELI shows any evidence of endocarditis - ID clinic f/u in 1 week after discharge from [facility]. Krishna Gary MD Infectious diseases
[2019-09-27] MEDS: GEMFIBROZIL 600 MG TABLET PO SCH (08:28)
[2019-09-27] MEDS: CALCIUM CARBONATE 500 MG TAB.CHEW PO SCH ×2 (08:28→15:58)
[2019-09-27] MEDS: DOCUSATE SODIUM 100 MG CAPSULE PO SCH (08:28)
[2019-09-27] MEDS: CALCIUM ACETATE 667 MG CAPSULE PO SCH ×2 (08:28→11:56)
[2019-09-27] MEDS: SEVELAMER 800 MG TABLET PO SCH ×2 (08:30→11:56)
[2019-09-27] MEDS: HEPARIN 5,000 UNIT/ML VIAL SQ SCH (08:31)
[2019-09-27] MEDS: 0.9 % SODIUM CHLORIDE 10 ML SYRINGE IV SCH ×2 (08:44→15:55)
--- NOTE | 2019-09-27 11:44 | Discharge Summary ---
Medical - DS: Prov Patient information: Note initiated : 09/27/19 at 11:41 am Service Date, if different from initiated Date: [] Patient: Odilon Kruger 44 y/o M admitted on 09/22/19 for positive blood cultures. Chief Complaint: [] Date of admission: 09/22/19 16:05 Discharge date: 09/27/19 Primary care physician: Nelson Castelan Consults: 09/22/19 Consult to Physician [CONS] Stat Comment: Consulting Provider: Ting Solis Reason For Exam: Physician to Consult Consult to Physician [CONS] Stat Comment: Consulting Provider: Mario Yañez Reason For Exam: Physician to Consult 09/22/19 14:04 Consult to Physician [CONS] Routine Comment: bactermia Consulting Provider: Krishna Gary Reason For Exam: Physician to Consult Discharging clinician: Sheryl Bowers Medical - DS: Meds - Discharge Medications Active and Home Medications: Home Medications Folic Acid/Vit B Complex and C [Renal Vitamin Tablet] 0.8 mg PO DAILY 11/26/17 [History Confirmed 09/22/19 Last Taken 09/21/19] aspirin 81 mg tablet,delayed release 81 mg PO QHS 08/02/18 [History Confirmed 09/22/19 Last Taken 09/21/19] calcium acetate 667 mg capsule 1,334 mg PO .COMPLEX #360 cap 02/14/19 [Rx Confirmed 09/22/19 Last Taken 09/22/19] gemfibrozil 600 mg tablet 600 mg .ROUTE .COMPLEX #30 tab 02/25/19 [Rx Confirmed 09/22/19 Last Taken 09/21/19] clopidogrel 75 mg tablet 75 mg PO DAILY #30 tab 03/18/19 [Rx Confirmed 09/22/19 Last Taken 09/21/19] calcium carbonate 200 mg calcium (500 mg) chewable tablet 200 mg PO QID tab 05/01/19 [History Confirmed 09/22/19 Last Taken 09/22/19] sevelamer HCl 800 mg tablet 2,400 mg PO TID #270 tab 09/02/19 [Rx Confirmed 09/22/19 Last Taken 09/22/19] Acetaminophen [Tylenol] 325 mg PO Q4HP PRN 09/22/19 [History Confirmed 09/22/19 Last Taken 01/06/20] Loperamide HCl [Imodium A-D] 4 mg PO PRN PRN 09/22/19 [History Confirmed 09/22/19 Last Taken Unknown] hydrOXYzine [Atarax] 25 mg PO QHS PRN 09/22/19 [History Confirmed 09/22/19 Last Taken 09/21/19] Medical - DS: [facility] Hospital Course: Mr. Kruger is a 44 year old M Who presented to the ED for cold and flulike symptoms yesterday and had been having the symptoms for couple days. Had some nausea and did vomiting but felt that was from the phlegm he coughed up. He also has some diarrhea but his today with constipation is not too uncommon. Also fever chills. Work-up in the ED was essentially unremarkable except for possibly a left upper lobe lobe infiltrate that was suspected to be atelectasis versus other. Patient was given Levaquin and blood cultures were obtained. He was sent back in to the ED today because blood culture growing positive for gram-positive cocci. He does continue to have fever and chills. The mouth cough did become dry he otherwise was having some rhinorrhea and some sinus drainage. Cough the other day had some yellow phlegm to it.Now complains of some right neck shoulder pain which when he points to this area is more the supraclavicular region. He does have a lot of skin lesions he says he gets pimple-like spots on his arms and legs and back and he pops them pus comes out like a pimple. 09/23 Patient reports poor sleep last night. CT chest obtained today. Only complaint is some discomfort over the right superior aspect of his chest into the collarbone area. This discomfort seems to migrate as before it is over by the trapezius and now its anterior chest wall. Denies fever chills 09/24 Better sleep last night. No new complaints. Occasional cough, much better. Last fever yesterday evening. 09/25 Patient's shoulder pain is better CT scan was unremarkable for any infectious pathology. Discussed with infectious disease specialist and plan is to get the AV graft out. Continue IV cefazolin 09/26 Patient continued to complaining of right shoulder pain and difficulty in raising his arms Ordered a CT office thoracic cervical, thoracic and lumbar spine with contrast to look for any evidence of source of bacteremia Discussed with nephrology and nephrology dialysis manager ethics working coordinating with the vascular surgeon to take out the graft 2 sets of blood culture ordered today pending Blood culture from the seventh no growth so far MSSA bacteremia Recurrent bacteremia and endocarditis- Potential source AV graft MSSA bacteremia and endocarditis in January 2019-6 weeks of antibiotic and post antibiotic ARASELI and blood culture has been negative Infectious disease evaluated the patient and followed during this hospital stay and continued on cefazolin IV Cefazolin (to be given after dialysis) as 2 gm on Sunday, 2 gm on Sunday and 3 gm on Sunday At least 4 weeks of IV Cefazolin therapy, with minimum of 2 weeks from time of AV graft removal. Duration >4 weeks to be based on whether or not pt's ARASELI shows any evidence of endocarditis TTE was negative MRSA nasal PCR negative Infectious disease specialist discussed with the nephrology and vascular surgery and plan is to get the AV graft out , which could be a potential source because of the recurrent MSSA bacteremia Patient also has multiple skin scab Blood culture from 09/23 is so far no growth Blood culture ordered today-09/26 2019 Patient was complaining of worsening right arm pain and difficulty in raising his arms and back pain and ordered CT of the spine which was negative for any obvious source of infection. CT of the neck soft tissue showing inflammation around the right thoracic inlet but no obvious fluid collection or potential source of infection Nephrology discussed with the vascular surgeon Dr. Galeano who accepted the patient for AV graft removal and new access placement Patient would also benefit from ARASELI Discussed with Dr. 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 Nephrology is following the patient HD every Sun, Sun, Sun: access is left forearm AVF Patient probably need temporary dialysis access until he gets a new access Obesity Patient has been losing weight but still he is morbidly obese Monitoring oxygenation GERD Continue home medications Hyperlipidemia Continue statin Intermittent diarrhea Chronic for him and also due to antibiotics Right upper chest and shoulder pain CT of the soft tissue neck and chest showing inflammation around the right thoracic inlet but no obvious source of infection His pain is better Discharge diagnosis: Recurrent MSSA bacteremia, potential AV graft source, ESRD - Time Spent with Patient Total time spent providing and/or coordinating discharge services: Greater than 30 minutes Medical - DS: Exam - Constitutional Vitals: Vital Signs Temp Pulse Resp BP Pulse Ox 09/27/19 07:18 97.5 F 78 18 120/57 94 09/27/19 03:40 98.0 F 74 20 110/57 95 09/26/19 23:56 98.1 F 78 20 98/57 92 09/26/19 19:50 98.8 F 84 20 94/47 95 09/26/19 12:00 98.0 F 75 113/81 99 Intake and Output 09/26/19 09/27/19 09/27/19 21:59 05:59 13:59 Intake Total 360 540 240 Output Total 30 50 Balance 330 490 240 Intake: Oral 360 540 240 Output: Void Amount 30 50 Other: Meal Dinner chees stick x1 Percent of Meal Consumed 100% 100% 75% Feeding Ability Independent Independent Assist with Tray Set Up Urine Appearance Clear Clear Urine Color Bright Yellow Bright Yellow Weight 319 lb 4.8 oz - Head Head exam: Present: atraumatic, normal inspection - Eye Eye exam: Absent: conjunctival injection, nystagmus, periorbital swelling, periorbital tenderness - ENT ENT exam: Present: mucous membranes moist, normal exam, normal external ear exam, normal oropharynx - Neck Neck exam: Present: normal inspection, tenderness. Absent: lymphadenopathy, meningismus Additional comments: Minimal tenderness below the right clavicle but improved compared to last 2 days - Respiratory Respiratory exam: Present: decreased breath sounds. Absent: accessory muscle use, chest wall tenderness, rhonchi, stridor, wheezes - Cardiovascular Cardiovascular exam: Present: normal rate and rhythm. Absent: bradycardia, diastolic murmur, systolic murmur - GI/Abdominal GI/Abdominal exam: Present: normal bowel sounds, soft, distended. Absent: bruit - Neurological Exam Neurological exam: Present: alert, oriented X3, reflexes normal. Absent: altered, motor sensory deficit - Psychiatric Psychiatric exam: Present: normal affect, normal mood. Absent: anxious, depressed - Skin Skin exam: Present: dry, rash Additional comments: Multiple skin scabbed wounds Medical - DS: Data Labs on day of discharge: Preliminary micro results at discharge 09/26/19 05:30 Blood Culture - Preliminary Blood 09/26/19 05:35 Blood Culture - Preliminary Blood 09/23/19 07:02 Blood Culture - Preliminary Blood 09/23/19 09:39 Blood Culture - Preliminary Blood Medical - DS: A/P - Patient/Caregiver Discharge Instructions Activity: as instructed Diet: Renal - Follow up Plan Follow up with: Nelson Castelan MD [Primary Care Provider] - Disposition: [facility] Prognosis: Good Rehab Potential: Good I certify that the patient requires SNF services: No Overall status at discharge: patient is progressing back to baseline Medical - DS: Qual - VTE Deep Vein Thrombosis/Pulmonary Embolism Present on Admission: No
--- NOTE | 2019-09-27 12:09 | Nephrology Progress Note ---
Subjective Patient information: Note initiated : 09/27/19 at 12:08 pm Service Date, if different from initiated Date: [] Patient: Odilon Kruger 44 y/o M admitted on 09/22/19 for positive blood cultures. Chief Complaint: [] Principal diagnosis: ESRD, bacteremia Interval history: Seen on AM rounds. Coordination of care with dialysis, ID, [place] and [place] [facility] Raphael Muniz[place] wi8ll transfer for vascular surgery on presumed infected left arm PTF jump graft. In the past 9 months, 2 espidodes of high grade MSSA bacteremia and SIRS/Sepsis. Currently, 2 sets positive initially and now 2 sets negative and fever abated for last 72 hours. Transfer arranged to [facility] for definitive therapy Nothing clinically to suggest endocarditis, but we do not have the technology to perform a ARASELI. Pertinent ROS: No fever, chills, rigors, night sweats Additional PMFSH (Level 3 Only): N/A Objective - Vital Signs Vital signs: Vital Signs Temp Pulse Resp BP Pulse Ox 09/27/19 11:42 37.1 C 75 16 111/49 96 09/27/19 07:18 36.4 C 78 18 120/57 94 09/27/19 03:40 36.7 C 74 20 110/57 95 09/26/19 23:56 36.7 C 78 20 98/57 92 09/26/19 19:50 37.1 C 84 20 94/47 95 Intake and Output 09/26/19 09/27/19 09/27/19 21:59 05:59 13:59 Intake Total 360 540 240 Output Total 30 50 Balance 330 490 240 Intake: Oral 360 540 240 Output: Void Amount 30 50 Other: Meal Dinner chees stick x1 Percent of Meal Consumed 100% 100% 75% Feeding Ability Independent Independent Assist with Tray Set Up Urine Appearance Clear Clear Urine Color Bright Yellow Bright Yellow Weight 144.832 kg Intake & Output: Intake & Output 09/26/19 09/27/19 09/27/19 21:59 05:59 13:59 Intake Total 360 540 240 Output Total 30 50 Balance 330 490 240 Weight 144.832 kg Intake: Oral 360 540 240 Output: Void Amount 30 50 Other: Meal Dinner chees stick x1 Percent of Meal Consumed 100% 100% 75% Feeding Ability Independent Independent Assist with Tray Set Up Urine Appearance Clear Clear Urine Color Bright Yellow Bright Yellow EENT: ATNC, PERRL Neck: no JVD, supple Respiratory: no kyphosis Cardiology: mid-systolic murmur (II/ ASH), no rub, no gallops, no edema, regular rate, regular rhythm Integumentary: no rash, warm and dry Neurologic: no focal deficit Musculoskeletal: no deformities, no cyanosis, no clubbing (Left forarm AVF anf left lateral jump graft with bruit/thill and non tender. Left upper arm AVF (medial) is thrombosed) - Lab 09/25/19 09:23 09/25/19 09:23 Most recent lab results Calcium 9.0 mg/dl (8.6-10.4) 09/25/19 09:23 Phosphorus 5.1 mg/dL (2.7-4.5) H 09/25/19 09:23 Magnesium 2.2 mg/dL (1.6-2.5) 09/25/19 09:23 Assessment and Plan (1) MSSA (methicillin susceptible Staphylococcus aureus) 1. Ancef post HD - 2 gm mon and Weds and 3 gm post HD on Sunday 2. Serial blood cultures are currently negative after 2/2 positive for MSSA on 09/21/19 3. Outpatient AARSELI to determine length of therapy or as inpatient upon transfer to [facility] 4. At least 2 weeks after removal of PTFE graft material 5. Co-ordinate care with ID, Vascular Surgeon and outpatient dialysis 6. Not that this is likely, but a nuclear (indium WBC) or CT PET scan may lead more strength to the hypothesis that the PTFE portion of the lower forarm AVF is the site of infection as the upper arm has a stent in place which is also thrombosed. The PTFE graft was placed to bypass the thrombosed venous outflow Status: Acute Priority: High (2) AV fistula infection 1. As outlined above 2. Highly likely to be AVG material from jump graft is source of bacteremia... No aneurysmal formation but suspicion for biofilm and MSSA endovascular infection 3. Not sure if a PET scan would help since a neg result would not do much to change may plans to remove the graft material U/S left lower AVF: : Beneath the skin and adjacent to the artery in the proximal left forearm there is a band of hypoechoic tissue which measures 1.5 x 2.9 cm. This is the site where the hemodialysis had been performed. Doppler shows some increased blood flow along the periphery of this tissue.. No liquefied component is seen. There is no evidence of a pseudoaneurysm. Patient has a patent fistula in the forearm for renal dialysis. IMPRESSION: Cellulitis versus hematoma at the site of the recent hemodialysis in the proximal left forearm TTE: Poor quality study with no obvious vegitation or new regurtatent murmurs Blood cultures: 09/21/2019=> 2/2 positive for MSSA 09/23/2019=> 2/2 now growth at 48 hours 09/26/2019 => No report of growth In December 2018 the patient had at least 4 sets of blood cultures positive for MSSA with AVG present at that time. In my opinion, if there are NO VEGITATIONS on the cardiac valves, the PTFE graft should be removed and can be replaced later after completing 2 weeks of ABx on HD via a cuffed HD catheter. I fear the graft can be supressed but not sterilized in this situation. Status: Acute Priority: High Qualifiers: Qualified Code(s): T82.7XXA - Infection and inflammatory reaction due to other cardiac and vascular devices, implants and grafts, initial encounter (3) End stage renal failure on dialysis 1. HD MWF 2. Will need temp access when AVG is removed. Status: Chronic Priority: Medium Comment: ESRD due to indometacin 2010. access left arm fistula. (4) Tertiary hyperparathyroidism 1. Continue phosphate binders with meals 2. Intact PTH level 3. He has had a parathyroidectomy in the past 4. 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 Aranesp as needed weekly, due to acute blood loss of hospitalization he will probably need twice is much is his usual on patient dose Status: Chronic Priority: Medium
== END 2019-09-27 16:20 | disposition short-term general hospital (02) | DRG 314 ==
LOC: ED 11:25 → MEDSUR 16:05
PROVIDERS: ADMIT Internal Medicine; ATTEND Internal Medicine